=== PATIENT | female | born 1955 | race Caucasian/White ===

== ENCOUNTER → 2017-03-25 | Outpatient (CLI) | payer BC | LOC: CARD 09:35 | PROVIDERS: ATTEND Nurse Practitioner Family | DX: R06.09 Other forms of dyspnea (principal); R07.89 Other chest pain | CPT/HCPCS: 93306 ==

== ENCOUNTER → 2017-03-25 | Outpatient (CLI) | payer BC | LOC: CARD 09:41 → EDUNIT# 11:15 | PROVIDERS: ATTEND Nurse Practitioner Family | DX: R06.09 Other forms of dyspnea (principal) | CPT/HCPCS: 93225; 93226 ==

== ENCOUNTER → 2017-04-02 | Outpatient (CLI) | payer BC ==
[~2017-04-02] VITALS: Ht 172.7 cm; Wt 144.2 kg
[~2017-04-02] MED LIST: CATHETER FLUSH 10 ML SYR IV PRN; REGADENOSON 0.4 MG/5 ML SYR (LEXISCAN) IV ONE
[2017-04-02 09:40] VITALS: BP 106/50
== END ==
LOC: CARD 08:04 → EDUNIT# 09:45
PROVIDERS: ATTEND Nurse Practitioner Family
DX: R07.89 Other chest pain (principal); R06.09 Other forms of dyspnea
CPT/HCPCS: 78452; 93017

== ENCOUNTER 2018-02-09 05:51 | Outpatient (CLI) | payer BC ==
[~2018-02-09] VITALS: Ht 172.7 cm; Wt 137.9 kg
[2018-02-09] MEDS ORDERED: VNL37.5T PO (15:26)
[2018-02-09] MEDS ORDERED: GABA-488 PO (15:26)
[2018-02-09] MEDS ORDERED: CETI10TA17 PO (15:26)
[2018-02-09] MEDS ORDERED: LISI-552 PO (15:26)
[2018-02-09] MEDS ORDERED: PRAV40TA2 PO (15:26)
[2018-02-09] MEDS ORDERED: METO-387 PO (15:26)
[2018-02-09] MEDS ORDERED: INSU100V SQ (15:26)
[2018-02-09] MEDS ORDERED: INSU100I29 SQ (15:26)
== END 2018-02-09 15:28 | disposition home or self-care (01) ==
LOC: PREOP 05:51
PROVIDERS: ATTEND Surgery
DX: Z01.818 Encounter for other preprocedural examination (principal)

== ENCOUNTER 2018-02-16 07:49 | Day surgery (SDC) | payer BC ==
[~2018-02-16] VITALS: Ht 172.7 cm; Wt 137.9 kg
[~2018-02-16 07:49] MED LIST changes: -CATHETER FLUSH 10 ML SYR IV PRN; +CETI10TA17 PO; +GABA-488 PO; +INSU100I29 SQ; +INSU100V SQ; +LISI-552 PO; +METO-387 PO; +PRAV40TA2 PO; -REGADENOSON 0.4 MG/5 ML SYR (LEXISCAN) IV ONE; +VNL37.5T PO
[2018-02-16] MEDS ORDERED: LACTATED RINGERS 1,000 ML IV ONE (07:57)
--- NOTE | 2018-02-16 08:07 | Progress Note-Pre Operative ---
Pre-Operative Progress Note H&P Reviewed The H&P was reviewed, patient examined and no changes noted. Date Seen by Provider: Feb 16, 2018 Time Seen by Provider: 08:07 Date H&P Reviewed: Feb 16, 2018 Time H&P Reviewed: 08:07 Pre-Operative Diagnosis: blood in stool SHEREEN GOEL DO Feb 16, 2018 08:07
[2018-02-16] MEDS ORDERED: GLYCOPYRROLATE 0.2 MG/ML (ROBINUL) 2 ML VIAL IV ONE (08:30)
[2018-02-16] MEDS ORDERED: LACTATED RINGERS 1,000 ML IV STA (08:30)
[2018-02-16 08:34] VITALS: BP 167/92
[2018-02-16] MEDS ORDERED: MIDAZOLAM 2 MG/2 ML (VERSED) VIAL ONE (09:01)
[2018-02-16] MEDS ORDERED: PROPOFOL INJECTION 50 ML IV ONE (09:01)
--- NOTE | 2018-02-16 09:52 | Progress Note-Post Operative ---
Post-Operative Progess Note Surgeon (s)/Tour Conductor (s) Surgeon SHEREEN GOEL DO Tour Conductor: na Pre-Operative Diagnosis blood in stool Post-Operative Diagnosis cecal polyp, transverse colon lipoma, diverticulosis, internal hemorrhoids Procedure & Operative Findings Date of Procedure 02/16/18 Procedure Performed/Findings colonoscopy with hot bx polypectomy Anesthesia Type per [facility] Estimated Blood Loss Estimated blood loss (mL): none Specimens/Packing Specimens Removed cecal polyp SHEREEN GOEL DO Feb 16, 2018 09:52
--- NOTE | 2018-02-16 09:53 | Discharge Inst-Simple/Standard ---
Discharge Inst-Standard Patient Instructions/Follow Up Plan of Care/Instructions/FU: 2 weeks Jesse Activity as Tolerated: Yes Discharge Diet: Regular Diet (high fiber) SHEREEN GOEL DO Feb 16, 2018 09:53
[2018-02-16 10:00] VITALS: BP 130/65
[2018-02-16 10:25] VITALS: BP_SYST 127; BP_SYST 130; BP_DIAS 63; BP_DIAS 65
[2018-02-16 10:30] VITALS: BP 127/63
--- NOTE | 2018-02-16 10:56 | Anesthesia-General Post-Op ---
MAC Patient Condition Mental Status/LOC: Same as Preop Cardiovascular: Satisfactory Nausea/Vomiting: Absent Respiratory: Satisfactory Pain: Controlled Complications: Absent Post Op Complications Complications None Follow Up Care/Instructions Patient Instructions None needed. Anesthesiology Discharge Order Discharge Order Patient is doing well, no complaints, stable vital signs, no apparent adverse anesthesia problems. No complications reported per nursing. KADEN MENDOZA CRNA Feb 16, 2018 10:56
--- NOTE | 2018-02-16 14:50 | OPERATIVE REPORT ---
DATE OF SERVICE: 02/16/2018 PREOPERATIVE DIAGNOSIS: Blood in stools. POSTOPERATIVE DIAGNOSES: Cecal polyp, transverse colon lipoma, diverticulosis, internal hemorrhoids. PROCEDURE: Colonoscopy with hot biopsy polypectomy of the cecum polyp. SURGEON: Shereen Molina DO ANESTHESIA: Per MDA. ESTIMATED BLOOD LOSS: None. COMPLICATIONS: None. INDICATIONS: The patient is a 62-year-old female with blood in stools. She understands risks and benefits of procedure and wished to proceed with procedure. Consent was signed on the chart. DESCRIPTION OF PROCEDURE: The patient was taken to the endoscopy suite, placed in left lateral recumbent position. Timeout was performed. Digital rectal exam was performed noting internal hemorrhoids. No polyps, masses or ulcerations. The scope was inserted into the rectum and advanced all the way to the cecum with minimal difficulty. Prep was adequate. Scope was then slowly retracted back and in the a small polyp was present, which hot biopsy polypectomy was performed. Scope was continued to be slowly retracted back. There are no polyps, masses or ulceration in the ascending colon, transverse colon and a moderate size colonic lipoma present. Scope was continued to be slowly retracted back. There are no polyps, masses or ulcerations in the descending colon, minimal amount of diverticulosis present in the sigmoid colon. Once in the rectum, scope was also retroflexed noting no other pathology. There is some internal hemorrhoids noted which most likely the cause of bleeding and blood in stools. Scope was returned to its normal position, slowly withdrawn until completely removed. The patient tolerated the procedure well without any complications. She was taken to the recovery room in stable condition. RECOMMENDATIONS: The patient will follow up on pathology in approximately 2 weeks. We will consider HET treatment . If any change, the patient will need repeat colonoscopy in 5 years. If she has any problems prior to that, she should be reevaluated at that time. Job ID: [id number] DocumentID: [id number] Dictated Date: 02/16/2018 09:56:13 Monorail Hooker Date: 02/16/2018 14:50:26 Dictated By: SHEREEN MOLINA DO
== END 2018-02-16 10:30 | disposition home or self-care (01) ==
LOC: ENDO 07:49
PROVIDERS: ATTEND Surgery
DX: K92.1 Melena (principal); D12.0 Benign neoplasm of cecum; D17.5 Benign lipomatous neoplasm of intra-abdominal organs; K57.30 Diverticulosis of large intestine without perforation or abscess without bleeding; K64.8 Other hemorrhoids; E11.42 Type 2 diabetes mellitus with diabetic polyneuropathy; I10 Essential (primary) hypertension; G47.33 Obstructive sleep apnea (adult) (pediatric); E66.01 Morbid (severe) obesity due to excess calories; Z68.42 Body mass index [BMI] 45.0-49.9, adult; Z79.4 Long term (current) use of insulin; Z79.899 Other long term (current) drug therapy
CPT/HCPCS: 82962; 88305

== ENCOUNTER → 2018-07-19 | Outpatient (CLI) | payer BC, OTHER ==
--- NOTE | 2018-07-19 17:56 | Diagnostic Imaging Report ---
Indication: Routine screening. Comparison is made with prior exam from 08/10/2017 and 07/09/2016. Technique: 2-D and 3-D bilateral screening mammography was performed with CAD. Findings: Scattered fibroglandular densities are identified bilaterally. The parenchymal pattern appears stable. No mass or malignant-appearing microcalcifications are seen. The axillae are unremarkable. Impression: BI-RADS category 1. No mammographic features suspicious for malignancy are identified. ACR BI-RADS Category 1: Negative. Result letter will be mailed to the patient. Note: At least 10% of breast cancer is not imaged by mammography. Dictated by: Dictated on workstation # [id number]
== END ==
LOC: RAD 10:08
PROVIDERS: ATTEND Family Medicine
DX: Z12.31 Encounter for screening mammogram for malignant neoplasm of breast (principal)
CPT/HCPCS: 77067

== ENCOUNTER → 2018-11-02 | Outpatient (CLI) | payer BC ==
--- NOTE | 2018-11-02 14:08 | Diagnostic Imaging Report ---
EXAMINATION: Left hand radiographs, 3 views. COMPARISON: None. HISTORY: 63-year-old female, left hand pain after fall 5 weeks ago. Pain in the region of the fourth and fifth digits. FINDINGS: There is a comminuted displaced intra-articular fracture involving the base of the fifth metatarsal with sizable displaced fracture fragment measuring approximately 6 x 8 mm on image 1. There is offset of the articulating surface. The contour of the base of the fourth metacarpal appears unusual. There are limitations for evaluation of the fourth metacarpal base relating to bone overlap. Given the abnormal appearing morphology, fracture at this location is difficult to exclude. There is no identified subluxation or dislocation. There are vascular calcifications noted. IMPRESSION: 1. Comminuted displaced intra-articular fracture of the base of the fifth metacarpal with offset of the articulating surface. 2. Limitations for assessment of the base of the fourth metacarpal with questioned abnormal bone morphology and no clearly identified fracture. Further assessment of the base of the fourth metacarpal may be improved with dedicated CT left hand without contrast. Dictated by: Dictated on workstation # [id number]
== END ==
LOC: RAD FS 13:38
PROVIDERS: ATTEND Nurse Practitioner
DX: S62.317A Displaced fracture of base of fifth metacarpal bone, left hand, initial encounter for closed fracture (principal); W19.XXXA Unspecified fall, initial encounter
CPT/HCPCS: 73130

== ENCOUNTER → 2018-11-23 | Outpatient (CLI) | payer BC ==
--- NOTE | 2018-11-23 13:32 | Diagnostic Imaging Report ---
INDICATION: Followup fracture. TIME OF EXAM: 1:21 p.m. COMPARISON: Correlation is made with prior study of 11/02/2018. FINDINGS: Comminuted intra-articular fracture at the base of fifth metacarpal is again seen. Fracture lines remain clearly visible with 6 x 8 mm fracture fragment showing minimal displacement, similar to prior. No significant callus formation is identified. Alignment is stable. Carpal bones are unremarkable. Phalanges are unremarkable. IMPRESSION: No significant change in the intra-articular comminuted fracture at the base of the fifth metacarpal when compared with the prior examination from 11/02/2018. Dictated by: Dictated on workstation # [id number]
== END ==
LOC: RAD FS 13:08
PROVIDERS: ATTEND Nurse Practitioner
DX: S62.316D Displaced fracture of base of fifth metacarpal bone, right hand, subsequent encounter for fracture with routine healing (principal)
CPT/HCPCS: 73130

== ENCOUNTER → 2018-12-23 | Outpatient (CLI) | payer BC ==
--- NOTE | 2018-12-23 08:25 | Diagnostic Imaging Report ---
INDICATION: Left hand injury. FINDINGS: 3 views of left hand show comminuted fracture of the base of the fifth metatarsal with an avulsed fragment. This is unchanged compared to prior study done on 11/23/2018. There are no changes of acute abnormalities since the prior study. 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 Dictated by: Dictated on workstation # [id number]
== END ==
LOC: RAD FS 08:12
PROVIDERS: ATTEND Nurse Practitioner
DX: S62.31 Displaced fracture of base of other metacarpal bone (principal); S62.315A Displaced fracture of base of fourth metacarpal bone, left hand, initial encounter for closed fracture
CPT/HCPCS: 73130

== ENCOUNTER 2019-02-06 04:09 | Inpatient (IN) | payer BC ==
[2019-02-06] VITALS (18 sets, daily range): BP systolic 101–135; BP diastolic 35–97
[~2019-02-06] VITALS: Ht 172.7 cm; Wt 168.3 kg
[2019-02-06] MEDS ORDERED: NS IV 1000 ML 1,000 ML IV STA (04:27)
--- NOTE | 2019-02-06 05:05 | ED General ---
General Chief Complaint: Glucose Problems Stated Complaint: HIGH BLOOD SUGAR Nursing Triage Note: PT. WAS BROUGHT TO ER5 BY EMS WITH THE C/O ELEVATED BLOOD SUGAR AND UNRESPONSIVE. EMS STATED THE PT DID AROUSE PRIOR TO THE ADMIT TO ER BUT AT THIS POINT THE PT. IS NOT RESPONDING TO VERBAL COMMANDS. SHE IS MOANING. Nursing Sepsis Screen: No Definite Risk Source of Information: Patient, EMS, Family (Son), Spouse History of Present Illness Date Seen by Provider: Feb 06, 2019 Time Seen by Provider: 04:19 Initial Comments 63-year-old female presenting with complaints of altered mental status. According to family she has not been eating and drinking well since Thursday when she had started some pain medicine for her pinched nerve in her neck. She has not been taking her insulin as she is supposed to. She was less responsive tonight and when they tried to check her sugar at home that was only reading high on the monitor at home. Family called 911 because he couldn't get her to wake up for them. They had given her extra insulin prior to the ambulance arriving and does have an ambulance got there her sugar was found to 352. She was becoming more alert by the time EMS arrived. She has been running a fever and complaining that she thought she had a urinary tract infection. However because she was feeling so poorly she had not made it out to be evaluated in the clinic. Her primary doctor is Dr. Salcedo out of [place]. According to family she has not had to be admitted for DKA previously. Allergies and Home Medications Allergies Coded Allergies: Sulfa (Sulfonamide Antibiotics) (Unverified Allergy, Unknown, 04/02/17) cefaclor (Unverified Allergy, Unknown, 04/02/17) nitrofurantoin (Verified Allergy, Unknown, HIVES, 02/09/18) Home Medications Cetirizine HCl 10 Mg Tablet, 10 MG PO DAILY, (Reported) Gabapentin 300 Mg Capsule, 300 MG PO TID, (Reported) Insulin Detemir 100 Unit/1 Ml Insuln.pen, 70 UNIT SQ BID, (Reported) Insulin Lispro 100 Unit/1 Ml Vial, 35 UNIT SQ TIDWM, (Reported) Lisinopril 20 Mg Tablet, 10 MG PO DAILY, (Reported) take 1/2 of 20mg Metoprolol Succinate 25 Mg Tab.er.24h, 25 MG PO DAILY, (Reported) Pravastatin Sodium 40 Mg Tablet, 40 MG PO DAILY, (Reported) Venlafaxine HCl 37.5 Mg Tab, 37.5 MG PO BID WITH MEALS, (Reported) Patient Home Medication List Home Medication List Reviewed: Yes Review of Systems Review of Systems Constitutional: chills, fever, malaise EENTM: no symptoms reported Respiratory: short of breath Cardiovascular: no symptoms reported Gastrointestinal: loss of appetite Genitourinary: dysuria Musculoskeletal: neck pain (pinched nerve in neck) Skin: no symptoms reported Psychiatric/Neurological: Weakness, Other (fatigue and sleeping more recently) Hematologic/Lymphatic: Denies Easy Bleeding, Denies Easy Bruising Immunological/Allergic: no symptoms reported All Other Systems Reviewed Negative Unless Noted: Yes (Negative excepted noted.) Past Hbenqwm-Iiwwmp-Qfalzg Hx Past Med/Social Hx: Reviewed Nursing Past Med/Soc Hx Patient Social History Recent Foreign Travel: No Contact w/Someone Who Travel: No Recent Infectious Disease Expo: No Recent Hopitalizations: No Seasonal Allergies Seasonal Allergies: Yes Past Medical History Surgeries: Yes Gallbladder, Hysterectomy Respiratory: Yes Sleep Apnea Currently Using CPAP: Yes Cardiac: Yes Hypertension Neurological: Yes Neuropathy HUMAN RESOURCES CONSULTANT History: Hysterectomy Gastrointestinal: Yes Chronic Constipation, Hemorrhoids Musculoskeletal: Yes Arthritis Endocrine: Yes Diabetes, Insulin dep Depression Physical Exam Vital Signs Vital Signs - First Documented 02/06/19 02/06/19 04:15 06:29 Temp 100.8 Pulse 116 Resp 24 B/P (MAP) 125/80 (95) Pulse Ox 92 O2 Delivery Nasal Cannula O2 Flow Rate 4.00 Capillary Refill : Less Than 3 Seconds Height, Weight, BMI Height: 5'8.00" Weight: 350lbs. 0.0oz. 158.632797yg; 46.2 BMI Method:Estimated General Appearance: Obese Eyes: Bilateral Eye PERRL HEENT: No Moist Mucous Membranes (dry mucous membranes with remnants of red candy on her tongue and mouth) Neck: Supple Respiratory: Lungs Clear, Decreased Breath Sounds Cardiovascular: Normal Peripheral Pulses, Tachycardia Gastrointestinal: Normal Bowel Sounds, No Pulsatile Mass, Non Tender, Soft, Other (morbidly obese abdomen) Neurologic/Psychiatric: Alert; No Oriented x3 (states her first name and that she is in hospital. Otherwise not consistently answering questions) Skin: Cool, Pallor Focused Exam Sepsis Stage: Sepsis Possible Source: Other (Urinary and Pulmonary source) Lactate Level 02/06/19 04:40: Lactic Acid Level 3.89*H 02/06/19 06:15: Time of Focused Exam: 05:40 Respiratory: Chest Non Tender, No Accessory Muscle Use, No Respiratory Distress, Decreased Breath Sounds Cardiovascular: Tachycardia Peripheral Pulses: 2+ Carotid (R), 2+ Carotid (L), 2+ Radial Pulses (R), 2+ Radial Pulses (L) Skin: normal color, warm/dry Lactic Acid Level Laboratory Tests Test 02/06/19 04:40 02/06/19 06:15 Lactic Acid Level 3.89 MMOL/L (0.50-2.00) *H Within 3hrs of presentation: Admin fluids, Admin 30ml/kg IBW due to BMI>30, Admin ABX, Blood cultures prior to ABX's, Focus exam, Lactate level Progress/Results/Core Measures Suspected Sepsis Recent Fever Within 48 Hours: Yes Infection Criteria Present: None New/Unexplained Altered Menta: Yes Sepsis Screen: No Definite Risk Within 3hrs of presentation: Admin fluids, Admin 30ml/kg IBW due to BMI>30, Admin ABX, Blood cultures prior to ABX's, Focus exam, Lactate level SIRS Temperature:100.8 Pulse: 116 Respiratory Rate: 24 Laboratory Tests 02/06/19 04:20: White Blood Count 26.6H Blood Pressure 125 /80 Mean: 95 02/06/19 04:40: Lactic Acid Level 3.89*H 02/06/19 06:15: Laboratory Tests 02/06/19 04:20: Creatinine 1.38H, Platelet Count 199, Total Bilirubin 1.2H Results/Orders Lab Results Laboratory Tests Test 02/06/19 04:20 02/06/19 04:40 02/06/19 04:50 02/06/19 05:05 Range/Units White Blood Count 26.6 H 4.3-11.0 10^3/uL Red Blood Count 3.97 L 4.35-5.85 10^6/uL Hemoglobin 11.0 L 11.5-16.0 G/DL Hematocrit 34 L 35-52 % Mean Corpuscular Volume 85 80-99 FL Mean Corpuscular Hemoglobin 28 25-34 PG Mean Corpuscular Hemoglobin Concent 33 32-36 G/DL Red Cell Distribution Width 15.0 H 10.0-14.5 % Platelet Count 199 130-400 10^3/uL Mean Platelet Volume 11.7 H 7.4-10.4 FL Neutrophils (%) (Auto) 91 H 42-75 % Lymphocytes (%) (Auto) 5 L 12-44 % Monocytes (%) (Auto) 4 0-12 % Eosinophils (%) (Auto) 0 0-10 % Basophils (%) (Auto) 0 0-10 % Neutrophils # (Auto) 24.0 H 1.8-7.8 X 10^3 Lymphocytes # (Auto) 1.4 1.0-4.0 X 10^3 Monocytes # (Auto) 1.2 H 0.0-1.0 X 10^3 Eosinophils # (Auto) 0.0 0.0-0.3 10^3/uL Basophils # (Auto) 0.0 0.0-0.1 10^3/uL Neutrophils % (Manual) 55 % Lymphocytes % (Manual) 6 % Monocytes % (Manual) 3 % Eosinophils % (Manual) 1 % Basophils % (Manual) 0 % Band Neutrophils 35 % Hypochromasia 1+ Sodium Level 127 L 135-145 MMOL/L Potassium Level 4.6 3.6-5.0 MMOL/L Chloride Level 88 L 98-107 MMOL/L Carbon Dioxide Level 21 21-32 MMOL/L Anion Gap 18 H 5-14 MMOL/L Blood Urea Nitrogen 46 H 7-18 MG/DL Creatinine 1.38 H 0.60-1.30 MG/DL Estimat Glomerular Filtration Rate 39 BUN/Creatinine Ratio 33 Glucose Level 345 H 70-105 MG/DL Calcium Level 9.3 8.5-10.1 MG/DL Corrected Calcium 10.3 H 8.5-10.1 MG/DL Total Bilirubin 1.2 H 0.1-1.0 MG/DL Aspartate Amino Transf (AST/SGOT) 29 5-34 U/L Alanine Aminotransferase (ALT/SGPT) 21 0-55 U/L Alkaline Phosphatase 217 H 40-136 U/L Total Protein 8.3 H 6.4-8.2 GM/DL Albumin 2.8 L 3.2-4.5 GM/DL Salicylates Level < 0.3 L 5.0-20.0 MG/DL Acetaminophen Level < 10 L 10-30 UG/ML Serum Alcohol < 10 <10 MG/DL Lactic Acid Level 3.89 *H 0.50-2.00 MMOL/L Arterial Blood pH 7.39 7.37-7.43 Urine Color DARK YELLOW Urine Clarity CLOUDY Urine pH 5.0 5-9 Urine Specific [place] >=1.030 1.016-1.022 Urine Protein 1+ H NEGATIVE Urine Glucose (UA) 2+ H NEGATIVE Urine Ketones TRACE H NEGATIVE Urine Nitrite NEGATIVE NEGATIVE Urine Bilirubin 2+ H NEGATIVE Urine Urobilinogen 1.0 NORMAL MG/DL Urine Leukocyte Esterase 1+ H NEGATIVE Urine RBC (Auto) 1+ H NEGATIVE Urine RBC RARE /HPF Urine WBC 50-100 H /HPF Urine Squamous Epithelial Cells 2-5 /HPF Urine Crystals NONE /LPF Urine Bacteria 4+ /HPF Urine Casts PRESENT /LPF Urine Hyaline Casts 25-50 H /LPF Urine Mucus MODERATE H /LPF Urine Culture Indicated YES Urine Opiates Screen POSITIVE H NEGATIVE Urine Oxycodone Screen NEGATIVE NEGATIVE Urine Methadone Screen NEGATIVE NEGATIVE Urine Propoxyphene Screen NEGATIVE NEGATIVE Urine Barbiturates Screen NEGATIVE NEGATIVE Ur Tricyclic Antidepressants Screen POSITIVE H NEGATIVE Urine Phencyclidine Screen NEGATIVE NEGATIVE Urine Amphetamines Screen NEGATIVE NEGATIVE Urine Methamphetamines Screen NEGATIVE NEGATIVE Urine Benzodiazepines Screen NEGATIVE NEGATIVE Urine Cocaine Screen NEGATIVE NEGATIVE Urine Cannabinoids Screen NEGATIVE NEGATIVE Test 02/06/19 06:15 Range/Units My Orders Orders - RAGHU CANAS MD Ua Culture If Indicated (02/06/19 04:27) Cbc With Automated Diff (02/06/19 04:27) Comprehensive Metabolic Panel (02/06/19 04:27) Alcohol (02/06/19 04:27) Drug Screen Stat (Urine) (02/06/19 04:27) Acetaminophen (02/06/19 04:27) Salicylate (02/06/19 04:27) Ekg Tracing (02/06/19 04:27) Ed Iv/Invasive Line Start (02/06/19 04:27) Monitor-Rhythm Ecg Trace Only (02/06/19 04:27) Ed Iv/Invasive Line Start (02/06/19 04:27) Ns Iv 1000 Ml (Sodium Chloride 0.9%) (02/06/19 04:27) Blood Culture (02/06/19 04:31) Lactic Acid Analyzer (02/06/19 04:31) Hurt Cath (02/06/19 04:31) Manual Differential (02/06/19 04:20) Ns Iv 1000 Ml (Sodium Chloride 0.9%) (02/06/19 05:15) Levofloxacin 750 Mg/150 Ml Iv (Levaquin (02/06/19 05:15) Abg Ph (02/06/19 04:50) Chest 1 View Ap/Pa Only (02/06/19 05:43) Acetaminophen Suppository (Tylenol Suppo (02/06/19 06:00) Urine Culture (02/06/19 05:05) Medications Given in ED Current Medications Medications Dose Ordered Sig/Lydia Route Start Time Stop Time Status Last Admin Dose Admin Acetaminophen 650 mg ONCE ONCE OK 02/06/19 06:00 02/06/19 06:01 DC 02/06/19 05:56 650 MG Vital Signs/I&O 02/06/19 02/06/19 02/06/19 02/06/19 04:15 06:04 06:07 06:29 Temp 100.8 100.2 100.2 100.2 Pulse 116 116 116 118 Resp 24 27 27 24 B/P (MAP) 125/80 (95) 109/97 (101) 109/97 109/96 (100) Pulse Ox 92 O2 Delivery Nasal Cannula Nasal Cannula Nasal Cannula Nasal Cannula O2 Flow Rate 4.00 100.00 4.00 4.00 Capillary Refill : Less Than 3 Seconds Blood Pressure Mean: 95 Progress Note #1: Progress Note check labs and give IVF for hydration as she has possible infection and possible DKA. Check urine and place hurt since she has altered mental status and to monitor urine out put closely. Progress Note #2: Time: 04:40 Progress Note Pt with elevated WBC on her labs and remains tachycardic so will give additional IVF to get her to 30 mls/kg with IBW of 65 kg. Unable to obtain ABG so change to Venous gas to get a pH and see if she is acidotic or needs an insulin drip. Hurt to see what her urine output is and to get a clean specimen. Progress Note #3: Time: 05:03 Progress Note Focused exam improved after IVF bolus. She is more alert but still not back to baseline mental status. She has elevated temp still so give tylenol by rectal suppository and order levaquin for antibiotics. Will check a chest xray as well since she is requiring oxygen which is a new development for her. Her pH is normal so she is not acidotic but she does have an elevated anion gap and low sodium with elevated glucose. 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 Will admit to ICU and continue on abx and fluids based on IBW. After discussion with her the urine did come back showing infection and her CXR shows possible infiltrate so the Levaquin will cover both of these since she has allergies to cephalosporins and sulfa. Continue on IVF and admit to ICU in [place] with sepsis order set Progress Note #5: Time: 06:30 Progress Note Labs show she has elevated BUN and Cr as well to go with dehydration. Repeat Lactic acid is improved. Continue IVF but her BP is stable. Will transport her as soon as possible to ICU in [facility]. ECG Initial ECG Impression Date: Feb 06, 2019 Initial ECG Impression Time: 05:15 Initial ECG Rate: 115 Initial ECG Rhythm: S.Tach Initial ECG Intervals: Normal Initial ECG Comparisson: No Previous ECG Available Comment Sinus tachycardia with heart rate of [address] elevation. She has some T-wave flattening. There is no prior tracing for comparison. She has a lot of wander due to artifact. Diagnostic Imaging Diagonstic Imaging: Xray Plain Films/CT/US/NM/MRI: chest Comments On my review of her 1 view cxr she has bilateral infiltrate and cardiomegaly. large body habitus. Critical Care Note Critical Care Total Time (minutes) 90 minutes Progress 90 minutes spent in critical care time. The time was spent in direct care of the patient. This time was spent obtaining history from the patient's and patient's family. Time was excluding separately billable procedures. Time spent ordering labs and tests as well as reviewing results, ordering interventions and reviewing response, ordering x-rays and reviewing results, discussion with consultants, discussion with the family, documentation of the chart. Departure Communication (Admissions) Time/Spoke to Admitting Phy: 05:[address] Salcedo about admitting the pt for Sepsis and giving IVF based on her ideal body weight. Levaquin for abx choice for UTI and possible pneumonia Impression Primary Impression: Sepsis Qualified Codes: A41.9 - Sepsis, unspecified organism Additional Impressions: Pneumonia Qualified Codes: J18.9 - Pneumonia, unspecified organism Acute cystitis without hematuria Hyponatremia Hyperglycemia due to type 1 diabetes mellitus Disposition: ADMITTED INPATIENT Condition: Stable Admissions Decision to Admit Reason: Admit from ER (General) Decision to Admit/Date: Feb 06, 2019 Time/Decision to Admit Time: 05:37 Departure-Patient Inst. Referrals: [facility] (PCP) Primary Care Physician BAM SALCEDO MD (Family) Primary Care Physician RAGHU CANAS MD Feb 06, 2019 05:05
[2019-02-06 05:09] LABS: HEMATOCRIT 34 % (35-52); LYMPHOCYTES % (AUTO) 5 % (12-44); MEAN CORPUSCULAR HEMOGLOBIN 28 PG (25-34); MEAN CORPUSCULAR HGB CONC 33 G/DL (32-36); MEAN CORPUSCULAR VOLUME 85 FL (80-99); MEAN PLATELET VOLUME 11.7 FL (7.4-10.4); MONOCYTES % (AUTO) 4 % (0-12); NEUTROPHILS % (AUTO) 91 % (42-75); PLATELET COUNT 199 10^3/uL (130-400); WHITE BLOOD COUNT 26.6 10^3/uL (4.3-11.0)
[2019-02-06 05:10] LABS: BASOPHILS % (AUTO) 0 % (0-10); EOSINOPHILS % (AUTO) 0 % (0-10); LYMPHOCYTES # (AUTO) 1.4 X 10^3 (1.0-4.0); MONOCYTES # (AUTO) 1.2 X 10^3 (0.0-1.0)
[2019-02-06 05:11] LABS: ALANINE AMINOTRANSFERASE 21 U/L (0-55); ALBUMIN 2.8 GM/DL (3.2-4.5); ALKALINE PHOSPHATASE 217 U/L (40-136); BILIRUBIN,TOTAL 1.2 MG/DL (0.1-1.0); BUN/CREATININE RATIO 33; CALCIUM 9.3 MG/DL (8.5-10.1); CARBON DIOXIDE 21 MMOL/L (21-32); CHLORIDE 88 MMOL/L (98-107); CREATININE SERUM 1.38 MG/DL (0.60-1.30); GFR ESTIMATED 39; GLUCOSE 345 MG/DL (70-105); POTASSIUM 4.6 MMOL/L (3.6-5.0); SODIUM 127 MMOL/L (135-145); TOTAL PROTEIN 8.3 GM/DL (6.4-8.2)
[2019-02-06 05:12] LABS: ACETAMINOPHEN < 10 UG/ML (10-30); SALICYLATE < 0.3 MG/DL (5.0-20.0)
[2019-02-06] MEDS ORDERED: LEVOFLOXACIN 750 MG/150 ML IV 150 ML IV STA (05:15)
[2019-02-06] MEDS ORDERED: NS IV 1000 ML 1,000 ML IV SCH ×3 (05:15→16:41)
[2019-02-06 05:36] LABS: BAND NEUTROPHILS 35 %; BASOPHILS % (MANUAL) 0 %; EOSINOPHILS % (MANUAL) 1 %; HYPOCHROMASIA 1+; LYMPHOCYTES % (MANUAL) 6 %; MONOCYTES % (MANUAL) 3 %; NEUTROPHILS % (MANUAL) 55 %
[2019-02-06 05:45] LABS: AMPHETAMINE SCREEN, URINE NEGATIVE (NEGATIVE); BENZODIAZEPINES SCREEN URINE NEGATIVE (NEGATIVE); CANNABINOID SCREEN, URINE NEGATIVE (NEGATIVE); COCAINE SCREEN URINE NEGATIVE (NEGATIVE); METHAMPHETAMINE SCREEN URINE S NEGATIVE (NEGATIVE); OPIATE SCREEN URINE POSITIVE (NEGATIVE); TRICYCLIC ANTIDEPRESSANTS SCRE POSITIVE (NEGATIVE)
[2019-02-06 05:46] LABS: BARBITURATE SCREEN URINE NEGATIVE (NEGATIVE); METHADONE STAT NEGATIVE (NEGATIVE); OXYCODONE STAT NEGATIVE (NEGATIVE); PROPOXYPHENE STAT NEGATIVE (NEGATIVE)
[2019-02-06] MEDS ORDERED: ACETAMINOPHEN 650 MG SUPP (TYLENOL) PR ONE (06:00)
[2019-02-06 06:02] LABS: BILIRUBIN,URINE 2+ (NEGATIVE); CLARITY,URINE CLOUDY; COLOR,URINE DARK YELLOW; GLUCOSE, URINE (UA) 2+ (NEGATIVE); KETONES,URINE TRACE (NEGATIVE); LEUKOCYTE ESTERASE ,URINE 1+ (NEGATIVE); NITRITE,URINE NEGATIVE (NEGATIVE); PROTEIN,URINE 1+ (NEGATIVE); RBC,URINE RARE /HPF
[2019-02-06 06:03] LABS: BACTERIA,URINE 4+ /HPF; HYALINE CASTS, URINE 25-50 /LPF; WBC,URINE 50-100 /HPF
--- NOTE | 2019-02-06 07:36 | NUR ---
Patient transferred at this time to [facility] via [facility].
--- NOTE | 2019-02-06 07:40 | Diagnostic Imaging Report ---
Examination: Single frontal view of the chest Indication: Elevated blood sugar and unresponsive. Comparison: None available. Findings: There is central vascular congestion and diffuse interstitial prominence. No focal consolidation is seen. No pneumothorax is appreciated. No large pleural effusion. There is moderate cardiomegaly. No acute osseous abnormality is appreciated. Impression: Limited exam secondary to suboptimal technique. There is suggestion of interstitial edema. No significant pleural effusion. Given mild cardiomegaly, findings may reflect component of congestive heart failure. No focal consolidation is appreciated. Dictated by: Dictated on workstation # [id number]
[2019-02-06] MEDS: NOREPINEPHRINE 4 MG in NS (IVPB) 250 ML IV SCH ×4 (08:42→21:37)
[2019-02-06] MEDS ORDERED: NS IV ONE (08:45)
[2019-02-06] MEDS ORDERED: CATHETER FLUSH 10 ML SYR IV PRN (09:00)
[2019-02-06 09:08] LABS: BASOPHILS % (AUTO) 0 % (0-10); EOSINOPHILS % (AUTO) 0 % (0-10); HEMATOCRIT 29 % (35-52); HEMOGLOBIN 9.7 G/DL (11.5-16.0); LYMPHOCYTES # (AUTO) 0.7 X 10^3 (1.0-4.0); LYMPHOCYTES % (AUTO) 3 % (12-44); MEAN CORPUSCULAR HEMOGLOBIN 28 PG (25-34); MEAN CORPUSCULAR HGB CONC 34 G/DL (32-36); MEAN CORPUSCULAR VOLUME 83 FL (80-99); MEAN PLATELET VOLUME 11.4 FL (7.4-10.4); MONOCYTES # (AUTO) 1.1 X 10^3 (0.0-1.0); MONOCYTES % (AUTO) 4 % (0-12); NEUTROPHILS # (AUTO) 23.8 X 10^3 (1.8-7.8); NEUTROPHILS % (AUTO) 93 % (42-75); PLATELET COUNT 176 10^3/uL (130-400); RED CELL DISTRIBUTION WIDTH 15.1 % (10.0-14.5); WHITE BLOOD COUNT 25.6 10^3/uL (4.3-11.0)
[2019-02-06 09:34] LABS: ALBUMIN 2.6 GM/DL (3.2-4.5); BILIRUBIN,TOTAL 1.2 MG/DL (0.1-1.0); CALCIUM 8.6 MG/DL (8.5-10.1); CREATININE SERUM 1.33 MG/DL (0.60-1.30); POTASSIUM 4.5 MMOL/L (3.6-5.0)
[2019-02-06] MEDS ORDERED: VANCOMYCIN INJECTION 0.1 MG in NS (IVPB) 250 ML IV SCH (10:30)
[2019-02-06] MEDS: NS IV 1000 ML 1,000 ML IV SCH ×2 (10:33→12:55)
[2019-02-06] MEDS ORDERED: VANCOMYCIN 2000 MG/NS 500 ML IVPB IV NR ×2 (11:15)
--- NOTE | 2019-02-06 11:24 | NUR ---
CR 1.33; WT 154 KG; CR CL (WITH ADJ WT OF 100 KG) ~70; VANCO 2000 MG IV Q12H; TROUGH AFTER 2ND DOSE
[2019-02-06] MEDS: cefTRIAXone FOR IV USE 1,000 MG in WATER (STERILE) FOR INJECTION 10 ML IV SCH (12:55)
[2019-02-06] MEDS ORDERED: CYCL10TA9 PO (13:09)
[2019-02-06] MEDS ORDERED: HYDR-3812 PO (13:09)
[2019-02-06] MEDS ORDERED: FURO40TA4 PO (13:09)
[2019-02-06] MEDS ORDERED: METF500T8 PO (13:09)
[2019-02-06] MEDS ORDERED: DICL1TAB49 PO (13:09)
[2019-02-06] MEDS ORDERED: fentaNYL INJECTION 100 MCG/2 ML AMP ONE (13:40)
[2019-02-06 13:45] LABS: ABG BASE EXCESS -3.3 MMOL/L (-2.5-2.5); ABG OXYGEN SATURATION 98 % (94-100); ABG PCO2 31 MMHG (35-45); ABG PH 7.43 (7.37-7.43); ABG PO2 108 MMHG (79-93); ABG TCO2 20.9 MMOL/L (21.0-31.0)
[2019-02-06] MEDS ORDERED: fentaNYL INJECTION 100 MCG/2 ML AMP IVP ONE (13:45)
[2019-02-06 13:49] LABS: ALLENS TEST YES-POS; INSPIRED O2 30% BIPAP; PATIENT TEMP 101.2; VENTILATOR NO
[2019-02-06] MEDS ORDERED: LORazepam INJ 2 MG/ML (ATIVAN) VIAL ONE (14:13)
[2019-02-06] MEDS ORDERED: NS (IVPB) 50 ML ONE (14:14)
[2019-02-06] MEDS ORDERED: FUROSEMIDE 40 MG/4 ML INJ (LASIX) ONE (14:18)
--- NOTE | 2019-02-06 14:28 | Consultation-Cardiology ---
HPI-Cardiology Cardiology Consultation: Date of Consultation 02/06/19 Time Seen by a Provider: 15:10 Date of Admission 02/06/19 Attending Physician Soraida Serra MD Admitting Physician [place] Consulting Physician ZULEMA CHAVARRIA MD, MA, FACP, FACC, [facility] [place], CCDS Physician requesting consult: Dr Serra HPI: Chief Complaint: Reason for consultation: Shortness of breath HPI 63 yo woman admitted to Dr Serra this am for mental status changes and unresponsiveness. Diagnosed with sepsis and admitted. Has been treated with iv fluids and antibiotics. Has had worsening shortness of breath. Currently, sedated on BiPAP, not able to provide a detailed history or review of systems. Does not report cp or palp. Has chronic leg swelling Review of Systems-Cardiology Review of Systems Constitutional: other (A review of systems could not be obtained because pt sedated and on BiPAP) All Other Systems Reviewed Negative Unless Noted: Yes (Negative excepted noted.) [id number]-[id number] Hx Patient Social History Recent Foreign Travel: No Recent Infectious Disease Expo: No Hospitalization with Isolation: Denies Past Medical History PMH As described under Assessment. Family Medical History Family Medical History: Pt not able to provide family history at the time of this exam Allergies and Home Medications Allergies Coded Allergies: Sulfa (Sulfonamide Antibiotics) (Unverified Allergy, Unknown, 04/02/17) cefaclor (Unverified Allergy, Unknown, 04/02/17) nitrofurantoin (Verified Allergy, Unknown, HIVES, 02/09/18) Home Medications Cetirizine HCl 10 Mg Tablet, 10 MG PO DAILY, (Reported) Cyclobenzaprine HCl 10 Mg Tablet, 10 MG PO Q8H PRN for MUSCLE SPASMS, (Reported) Diclofenac Sodium/Misoprostol 1 Each Tab.ir.dr, 75 MG PO BID, (Reported) Furosemide 40 Mg Tablet, 40 MG PO DAILY, (Reported) Gabapentin 300 Mg Capsule, 300 MG PO TID, (Reported) Hydrocodone/Acetaminophen 1 Each Tablet, 5-325 MG PO Q4H, (Reported) Insulin Detemir 100 Unit/1 Ml Insuln.pen, 70 UNIT SQ BID, (Reported) Insulin Lispro 100 Unit/1 Ml Vial, 35 UNIT SQ TIDWM, (Reported) Lisinopril 20 Mg Tablet, 10 MG PO DAILY, (Reported) take 1/2 of 20mg Metformin HCl 500 Mg Tab.er.24h, 500 MG PO BID, (Reported) Pravastatin Sodium 40 Mg Tablet, 40 MG PO DAILY, (Reported) Venlafaxine HCl 37.5 Mg Tab, 37.5 MG PO BID WITH MEALS, (Reported) Patient Home Medication List Home Medication List Reviewed: Yes Physical Exam-Cardiology Physical Exam Vital Signs/I&O 02/06/19 02/06/19 02/06/19 02/06/19 04:15 06:04 06:07 06:29 Temp 100.8 100.2 100.2 100.2 Pulse 116 116 116 118 Resp 24 27 27 24 B/P (MAP) 125/80 (95) 109/97 (101) 109/97 109/96 (100) Pulse Ox 92 O2 Delivery Nasal Cannula Nasal Cannula Nasal Cannula Nasal Cannula O2 Flow Rate 4.00 100.00 4.00 4.00 02/06/19 02/06/19 02/06/19 02/06/19 08:15 08:36 08:52 09:00 Pulse 121 115 112 Resp 23 39 B/P (MAP) 118/57 (77) 101/51 (68) Pulse Ox 97 O2 Delivery Nasal Cannula Nasal Cannula O2 Flow Rate 4.00 4.00 4.00 02/06/19 02/06/19 02/06/19 02/06/19 10:00 12:00 12:43 13:02 Pulse 112 109 109 112 Resp 22 31 28 B/P (MAP) 102/61 (75) 114/35 (61) 135/66 (89) Pulse Ox 97 96 O2 Delivery Nasal Cannula Nasal Cannula Nasal Cannula O2 Flow Rate 4.00 4.00 4.00 02/06/19 02/06/19 02/06/19 02/06/19 13:41 14:00 15:00 15:05 Pulse 109 107 109 109 Resp 45 16 25 45 B/P (MAP) 105/54 (71) 119/62 (81) Pulse Ox 99 96 100 99 O2 Delivery Nasal Cannula Nasal Cannula O2 Flow Rate 30.00 4.00 4.00 30.00 Capillary Refill : Less Than 3 Seconds Constitutional: well-developed, well-nourished, other (sedated, on BiPAP mask, obese) HEENT: PERRL; No xanthelasmas are seen Neck: carotid pulses are 2 + bilaterally, with good upstrokes Respiratory: No accessory muscle use; other (fair bilat air entry, diminished at the bases) Cardiovascular: regular rate-rhythm, S1 and S2, systolic murmur (soft YULIA at card base) Gastrointestinal: No tender; soft; No guarding, No rebound; audible bowel sounds Extremities: No clubbing, No cyanosis, No significant edema Neurologic/Psychiatric: other (she seems to move all limbs; she is not able to cooperate with a neuro exam (sedated)) Skin: normal color, warm/dry; No rash on exposed areas, No ulcerations on exposed areas Data Review Labs Laboratory Tests 02/06/19 04:20: White Blood Count 26.6H, Red Blood Count 3.97L, Hemoglobin 11.0L, Hematocrit 34L , Mean Corpuscular Volume 85, Mean Corpuscular Hemoglobin 28, Mean Corpuscular Hemoglobin Concent 33, Red Cell Distribution Width 15.0H, Platelet Count 199, Mean Platelet Volume 11.7H, Neutrophils (%) (Auto) 91H, Lymphocytes (%) (Auto) 5L, Monocytes (%) (Auto) 4, Eosinophils (%) (Auto) 0, Basophils (%) (Auto) 0, Neutrophils # (Auto) 24.0H, Lymphocytes # (Auto) 1.4, Monocytes # (Auto) 1.2H, Eosinophils # (Auto) 0.0, Basophils # (Auto) 0.0, Neutrophils % (Manual) 55, Lymphocytes % (Manual) 6, Monocytes % (Manual) 3, Eosinophils % (Manual) 1, Baso phils % (Manual) 0, Band Neutrophils 35, Hypochromasia 1+, Sodium Level 127L, P otassium Level 4.6, Chloride Level 88L, Carbon Dioxide Level 21, Anion Gap 18H, Blood Urea Nitrogen 46H, Creatinine 1.38H, Estimat Glomerular Filtration Rate 39, BUN/Creatinine Ratio 33, Glucose Level 345H, Calcium Level 9.3, Corrected Calcium 10.3H, Total Bilirubin 1.2H, Aspartate Amino Transf (AST/SGOT) 29, Alanine Aminotransferase (ALT/SGPT) 21, Alkaline Phosphatase 217H, Total Protein 8.3H, Albumin 2.8L, Salicylates Level < 0.3L, Acetaminophen Level < 10L, Serum Alcohol < 10 02/06/19 04:40: Lactic Acid Level 3.89*H 02/06/19 04:50: Arterial Blood pH 7.39 02/06/19 05:05: Urine Color DARK YELLOW, Urine Clarity CLOUDY, Urine pH 5.0, Urine Specific [place] >=1.030, Urine Protein 1+H, Urine Glucose (UA) 2+H, Urine Ketones TRACEH , Urine Nitrite NEGATIVE, Urine Bilirubin 2+H, Urine Urobilinogen 1.0, Urine Nannette kocyte Esterase 1+H, Urine RBC (Auto) 1+H, Urine RBC RARE, Urine WBC 50-100H, Urine Squamous Epithelial Cells 2-5, Urine Crystals NONE, Urine Bacteria 4+, Urine Casts PRESENT, Urine Hyaline Casts 25-50H, Urine Mucus MODERATEH, Urine Culture Indicated YES, Urine Opiates Screen POSITIVEH, Urine Oxycodone Screen NEGATIVE, Urine Methadone Screen NEGATIVE, Urine Propoxyphene Screen NEGATIVE, Urine Barbiturates Screen NEGATIVE, Ur Tricyclic Antidepressants Screen POSITIVEH, Urine Phencyclidine Screen NEGATIVE, Urine Amphetamines Screen NEGATIVE, Urine Methamphetamines Screen NEGATIVE, Urine Benzodiazepines Screen NEGATIVE, Urine Cocaine Screen NEGATIVE, Urine Cannabinoids Screen NEGATIVE 02/06/19 06:15: Lactic Acid Level 2.64*H 02/06/19 08:54: Lactic Acid Level 2.56*H, White Blood Count 25.6H, Red Blood Count 3.48L, Hemoglobin 9.7L, Hematocrit 29L, Mean Corpuscular Volume 83, Mean Corpuscular Hemoglobin 28, Mean Corpuscular Hemoglobin Concent 34, Red Cell Distribution Width 15.1H, Platelet Count 176, Mean Platelet Volume 11.4H, Neutrophils (%) (Auto) 93H, Lymphocytes (%) (Auto) 3L, Monocytes (%) (Auto) 4, Eosinophils (%) (Auto) 0, Basophils (%) (Auto) 0, Neutrophils # (Auto) 23.8H, Lymphocytes # (Auto) 0.7L, Monocytes # (Auto) 1.1H, Eosinophils # (Auto) 0.0, Basophils # (Auto) 0.0, Sodium Level 127L, Potassium Level 4.5, Chloride Level 98, Carbon Dioxide Level 17L, Anion Gap 12, Blood Urea Nitrogen 43H, Creatinine 1.33H, Estimat Glomerular Filtration Rate 41, BUN/Creatinine Ratio 32, Glucose Level 315H, Calcium Level 8.6, Corrected Calcium 9.7, Total Bilirubin 1.2H, Aspartate Amino Transf (AST/SGOT) 37H, Alanine Aminotransferase (ALT/SGPT) 21, Alkaline Phosphatase 182H, B-Type Natriuretic Peptide 419.8H, Total Protein 7.0, Albumin 2.6L 02/06/19 11:13: Lactic Acid Level 2.13*H 02/06/19 13:22: Glucometer 284H 02/06/19 13:40: Blood Gas Puncture Site RT BRACH, Blood Gas Patient Temperature 101.2, Arterial Blood pH 7.43, Arterial Blood Partial Pressure CO2 31L, Arterial Blood Partial Pressure O2 108H, Arterial Blood HCO3 20L, Arterial Blood Total CO2 20.9L, Arterial Blood Oxygen Saturation 98, Arterial Blood Base Excess -3.3L, Apolinar Test YES-POS, Blood Gas Ventilator Setting NO, Blood Gas Inspired Oxygen 30% BIPAP 02/06/19 14:10: B-Type Natriuretic Peptide 339.1H Laboratory Tests 02/06/19 04:20 02/06/19 08:54 A/P-Cardiology Assessment/Admission Diagnosis Sepsis UTI Renal insufficiency, probably acute Hyponatremia: probably partly pseudohyponatremia due to hyperglycemia, and partly due to chronic diuretic use H/o leg swelling, likely due to venous insufficiency, chronically treated with diuretics MPI of March 2017: no ischemia or infarction, LVEF 78% Echo of March 2018: LVEF 65-70%, mild to mod MAC and AoV sclerosis without valvular stenosis, mild MR Hypertension, by history Hyperlipidemia, by history Obesity with obesity-hypoventilation and HAWA DM II Discussion and Recomendations * Complex management due to multiple comorbidities * We gave a dose of furosemide because she seemed fluid overloaded * Use diuretics prn * Repeat echo * Monitor labs * I spoke with her and answered CV-related questions Clinical Quality Measures DVT/VTE Risk/Contraindication: Risk Factor Score Per Nursin RFS Level Per Nursing on Admit: 4+=Very High ZULEMA CHAVARRIA MD FACP FAC CCDS Feb 06, 2019 14:28
[2019-02-06] MEDS ORDERED: LORazepam INJ 2 MG/ML (ATIVAN) VIAL IV NR (14:30)
[2019-02-06] MEDS ORDERED: FUROSEMIDE 40 MG/4 ML INJ (LASIX) IV NR (14:30)
--- NOTE | 2019-02-06 14:47 | CONSULTATION REPORT ---
DATE OF SERVICE: 02/06/2019 ATTENDING CAREER SERVICES REPRESENTATIVE: [facility]. HISTORY OF PRESENT ILLNESS: The patient is a 63-year-old female who presented to [place] [facility] with altered mental status. According to family member, she has not been eating or drinking well since 4 days ago after taking pain medication for neuralgia of her neck. She is also now on insulin for diabetes and has not been taking her normal insulin regimen. Upon admission, she was found to have a significant urinary tract infection as well as possible pneumonia; however, at this time, she is now tachycardic with increased respiratory rate as well as low blood pressure consistent with sepsis. She will require a central venous catheter for vasopressor therapy. PAST MEDICAL HISTORY: Diabetes, hypertension, degenerative joint disease, diabetes, and depression. PAST SURGICAL HISTORY: Hysterectomy, cholecystectomy. ALLERGIES: SULFA, CECLOR, AND NITROFURANTOIN. MEDICATIONS: Cetirizine 10 mg daily, gabapentin 300 mg t.i.d., detemir insulin 70 units b.i.d., lispro insulin 35 units t.i.d., lisinopril 20 mg daily, metoprolol 25 mg daily, pravastatin 40 mg daily, and venlafaxine 37.5 mg b.i.d. SOCIAL HISTORY: Negative smoke, negative alcohol. FAMILY HISTORY: Noncontributory. REVIEW OF SYSTEMS: A well-nourished female, awake; however, confused. At this time, she is tachypneic as well as tachycardic. No known chest pain, palpitations, or diaphoresis. No loss of appetite for the past several days, no nausea, vomiting. No known history of diarrhea, constipation, no red blood per rectum, no dark tarry stools. No recent inadvertent weight loss. PHYSICAL EXAMINATION: VITAL SIGNS: Temperature 100.2, pulse 120s, respirations 50, pulse ox 96% on 4 liters nasal cannula, and systolic blood pressure 100 to 130s. CHEST: Scattered rales bilaterally. HEART: Tachycardic, regular. HEENT: No scleral icterus. No cervical lymphadenopathy. EXTREMITIES: +1/3 bilateral lower extremity edema. Negative Homans sign. ABDOMEN: Soft, nontender, and nondistended. SKIN: Warm, dry. ASSESSMENT AND PLAN: A 63-year-old female, sepsis secondary to urinary tract infection versus pneumonia. We will proceed with placement of a central venous catheter. Job ID: [id number] DocumentID: [id number] Dictated Date: 02/06/2019 14:21:11 Dehydration Unit Operator Date: 02/06/2019 14:46:53 Dictated By: CYNDIE YE MD
--- NOTE | 2019-02-06 15:02 | History & Physicial (CHS) ---
HPI History of Present Illness: 63 yo F that presented to ER after telling family that she did not feel right and they insisted that she go to the ER. Patient unable to answer very many questions and appears ill. Family states that she stopped taking her insulin Thursday because she was not feeling well and had no appetite. Today she was having some increased shortness of breath per family. Patient has a h/o IDDM, HTN, HLD. She does not use oxygen at home. In the ER she was found to have a lactic acidosis, ARF and initially glucose was read as high. Source: family Exam Limitations: clinical condition Date seen by provider: Feb 06, 2019 Time Seen by Provider: 11:55 Attending Physician Bam Serra MD [facility] [place] [facility] Consult Date of Admission Feb 06, 2019 at 06:27 Home Medications Home Medications Reviewed patient Home Medication Reconciliation performed by pharmacy medication reconciliations mobile home technician and/or nursing. Patients Allergies have been reviewed. Allergies Coded Allergies: Sulfa (Sulfonamide Antibiotics) (Unverified Allergy, Unknown, 04/02/17) cefaclor (Unverified Allergy, Unknown, 04/02/17) nitrofurantoin (Verified Allergy, Unknown, HIVES, 02/09/18) LBM-[id number]-Yqoolh Hx Patient Social History Recent Foreign Travel: No Contact w/other who traveled: No Recent Hopitalizations: No Recent Infectious Disease Expo: No Past Medical History Morbid Obesity IDDM HTN HLD Review of Systems (CHC) Constitutional: chills, malaise, weakness EENTM: no symptoms reported; No mouth pain, No nose congestion, No throat pain Respiratory: cough, dyspnea on exertion, short of breath Cardiovascular: no symptoms reported; No chest pain, No edema, No palpitations Gastrointestinal: No abdominal pain, No constipation; loss of appetite; No nausea, No vomiting Genitourinary: No dysuria; frequency Musculoskeletal: neck pain Skin: no symptoms reported; No lesions, No rash Psychiatric/Neurological: Headache Reviewed Test Results Reviewed Test Results Lab Laboratory Tests Test 02/06/19 04:20 02/06/19 04:40 02/06/19 04:50 02/06/19 05:05 Range/Units White Blood Count 26.6 H 4.3-11.0 10^3/uL Red Blood Count 3.97 L 4.35-5.85 10^6/uL Hemoglobin 11.0 L 11.5-16.0 G/DL Hematocrit 34 L 35-52 % Mean Corpuscular Volume 85 80-99 FL Mean Corpuscular Hemoglobin 28 25-34 PG Mean Corpuscular Hemoglobin Concent 33 32-36 G/DL Red Cell Distribution Width 15.0 H 10.0-14.5 % Platelet Count 199 130-400 10^3/uL Mean Platelet Volume 11.7 H 7.4-10.4 FL Neutrophils (%) (Auto) 91 H 42-75 % Lymphocytes (%) (Auto) 5 L 12-44 % Monocytes (%) (Auto) 4 0-12 % Eosinophils (%) (Auto) 0 0-10 % Basophils (%) (Auto) 0 0-10 % Neutrophils # (Auto) 24.0 H 1.8-7.8 X 10^3 Lymphocytes # (Auto) 1.4 1.0-4.0 X 10^3 Monocytes # (Auto) 1.2 H 0.0-1.0 X 10^3 Eosinophils # (Auto) 0.0 0.0-0.3 10^3/uL Basophils # (Auto) 0.0 0.0-0.1 10^3/uL Neutrophils % (Manual) 55 % Lymphocytes % (Manual) 6 % Monocytes % (Manual) 3 % Eosinophils % (Manual) 1 % Basophils % (Manual) 0 % Band Neutrophils 35 % Hypochromasia 1+ Sodium Level 127 L 135-145 MMOL/L Potassium Level 4.6 3.6-5.0 MMOL/L Chloride Level 88 L 98-107 MMOL/L Carbon Dioxide Level 21 21-32 MMOL/L Anion Gap 18 H 5-14 MMOL/L Blood Urea Nitrogen 46 H 7-18 MG/DL Creatinine 1.38 H 0.60-1.30 MG/DL Estimat Glomerular Filtration Rate 39 BUN/Creatinine Ratio 33 Glucose Level 345 H 70-105 MG/DL Calcium Level 9.3 8.5-10.1 MG/DL Corrected Calcium 10.3 H 8.5-10.1 MG/DL Total Bilirubin 1.2 H 0.1-1.0 MG/DL Aspartate Amino Transf (AST/SGOT) 29 5-34 U/L Alanine Aminotransferase (ALT/SGPT) 21 0-55 U/L Alkaline Phosphatase 217 H 40-136 U/L Total Protein 8.3 H 6.4-8.2 GM/DL Albumin 2.8 L 3.2-4.5 GM/DL Salicylates Level < 0.3 L 5.0-20.0 MG/DL Acetaminophen Level < 10 L 10-30 UG/ML Serum Alcohol < 10 <10 MG/DL Lactic Acid Level 3.89 *H 0.50-2.00 MMOL/L Arterial Blood pH 7.39 7.37-7.43 Urine Color DARK YELLOW Urine Clarity CLOUDY Urine pH 5.0 5-9 Urine Specific [place] >=1.030 1.016-1.022 Urine Protein 1+ H NEGATIVE Urine Glucose (UA) 2+ H NEGATIVE Urine Ketones TRACE H NEGATIVE Urine Nitrite NEGATIVE NEGATIVE Urine Bilirubin 2+ H NEGATIVE Urine Urobilinogen 1.0 NORMAL MG/DL Urine Leukocyte Esterase 1+ H NEGATIVE Urine RBC (Auto) 1+ H NEGATIVE Urine RBC RARE /HPF Urine WBC 50-100 H /HPF Urine Squamous Epithelial Cells 2-5 /HPF Urine Crystals NONE /LPF Urine Bacteria 4+ /HPF Urine Casts PRESENT /LPF Urine Hyaline Casts 25-50 H /LPF Urine Mucus MODERATE H /LPF Urine Culture Indicated YES Urine Opiates Screen POSITIVE H NEGATIVE Urine Oxycodone Screen NEGATIVE NEGATIVE Urine Methadone Screen NEGATIVE NEGATIVE Urine Propoxyphene Screen NEGATIVE NEGATIVE Urine Barbiturates Screen NEGATIVE NEGATIVE Ur Tricyclic Antidepressants Screen POSITIVE H NEGATIVE Urine Phencyclidine Screen NEGATIVE NEGATIVE Urine Amphetamines Screen NEGATIVE NEGATIVE Urine Methamphetamines Screen NEGATIVE NEGATIVE Urine Benzodiazepines Screen NEGATIVE NEGATIVE Urine Cocaine Screen NEGATIVE NEGATIVE Urine Cannabinoids Screen NEGATIVE NEGATIVE Test 02/06/19 06:15 02/06/19 08:54 02/06/19 11:13 02/06/19 13:22 Range/Units Lactic Acid Level 2.64 *H 2.56 *H 2.13 *H 0.50-2.00 MMOL/L White Blood Count 25.6 H 4.3-11.0 10^3/uL Red Blood Count 3.48 L 4.35-5.85 10^6/uL Hemoglobin 9.7 L 11.5-16.0 G/DL Hematocrit 29 L 35-52 % Mean Corpuscular Volume 83 80-99 FL Mean Corpuscular Hemoglobin 28 25-34 PG Mean Corpuscular Hemoglobin Concent 34 32-36 G/DL Red Cell Distribution Width 15.1 H 10.0-14.5 % Platelet Count 176 130-400 10^3/uL Mean Platelet Volume 11.4 H 7.4-10.4 FL Neutrophils (%) (Auto) 93 H 42-75 % Lymphocytes (%) (Auto) 3 L 12-44 % Monocytes (%) (Auto) 4 0-12 % Eosinophils (%) (Auto) 0 0-10 % Basophils (%) (Auto) 0 0-10 % Neutrophils # (Auto) 23.8 H 1.8-7.8 X 10^3 Lymphocytes # (Auto) 0.7 L 1.0-4.0 X 10^3 Monocytes # (Auto) 1.1 H 0.0-1.0 X 10^3 Eosinophils # (Auto) 0.0 0.0-0.3 10^3/uL Basophils # (Auto) 0.0 0.0-0.1 10^3/uL Sodium Level 127 L 135-145 MMOL/L Potassium Level 4.5 3.6-5.0 MMOL/L Chloride Level 98 98-107 MMOL/L Carbon Dioxide Level 17 L 21-32 MMOL/L Anion Gap 12 5-14 MMOL/L Blood Urea Nitrogen 43 H 7-18 MG/DL Creatinine 1.33 H 0.60-1.30 MG/DL Estimat Glomerular Filtration Rate 41 BUN/Creatinine Ratio 32 Glucose Level 315 H 70-105 MG/DL Calcium Level 8.6 8.5-10.1 MG/DL Corrected Calcium 9.7 8.5-10.1 MG/DL Total Bilirubin 1.2 H 0.1-1.0 MG/DL Aspartate Amino Transf (AST/SGOT) 37 H 5-34 U/L Alanine Aminotransferase (ALT/SGPT) 21 0-55 U/L Alkaline Phosphatase 182 H 40-136 U/L B-Type Natriuretic Peptide 419.8 H <100.0 PG/ML Total Protein 7.0 6.4-8.2 GM/DL Albumin 2.6 L 3.2-4.5 GM/DL Glucometer 284 H 70-110 MG/DL Test 02/06/19 13:40 02/06/19 14:10 Range/Units Blood Gas Puncture Site RT BRACH Blood Gas Patient Temperature 101.2 Arterial Blood pH 7.43 7.37-7.43 Arterial Blood Partial Pressure CO2 31 L 35-45 MMHG Arterial Blood Partial Pressure O2 108 H 79-93 MMHG Arterial Blood HCO3 20 L 23-27 MMOL/L Arterial Blood Total CO2 20.9 L 21.0-31.0 MMOL/L Arterial Blood Oxygen Saturation 98 94-100 % Arterial Blood Base Excess -3.3 L -2.5-2.5 MMOL/L Apolinar Test YES-POS Blood Gas Ventilator Setting NO Blood Gas Inspired Oxygen 30% BIPAP B-Type Natriuretic Peptide 339.1 H <100.0 PG/ML Physical Exam-(CHC) Physical Exam Vital Signs VS - Last 72 Hours, by Label 02/06/19 02/06/19 02/06/19 02/06/19 04:15 06:04 06:07 06:29 Temp 100.8 100.2 100.2 100.2 Pulse 116 116 116 118 Resp 24 27 27 24 B/P (MAP) 125/80 (95) 109/97 (101) 109/97 109/96 (100) Pulse Ox 92 O2 Delivery Nasal Cannula Nasal Cannula Nasal Cannula Nasal Cannula O2 Flow Rate 4.00 100.00 4.00 4.00 02/06/19 02/06/19 02/06/19 02/06/19 08:15 08:36 08:52 09:00 Pulse 121 115 112 Resp 23 39 B/P (MAP) 118/57 (77) 101/51 (68) Pulse Ox 97 O2 Delivery Nasal Cannula Nasal Cannula O2 Flow Rate 4.00 4.00 4.00 02/06/19 02/06/19 02/06/19 02/06/19 10:00 12:00 12:43 13:02 Pulse 112 109 109 112 Resp 22 31 28 B/P (MAP) 102/61 (75) 114/35 (61) 135/66 (89) Pulse Ox 97 96 O2 Delivery Nasal Cannula Nasal Cannula Nasal Cannula O2 Flow Rate 4.00 4.00 4.00 02/06/19 14:00 Pulse 107 Resp 16 B/P (MAP) 105/54 (71) Pulse Ox 96 O2 Delivery Nasal Cannula O2 Flow Rate 4.00 Capillary Refill : Less Than 3 Seconds General Appearance: moderate distress, obese HEENT: PERRL/EOMI Neck: limited range of motion (due to pain) Respiratory: lungs clear, normal breath sounds, respiratory distress Cardiovascular: normal peripheral pulses, regular rate, rhythm, no murmur Gastrointestinal: normal bowel sounds, non tender, soft Extremities: normal capillary refill, pedal edema (2+ bilaterally) Neurologic/Psychiatric: alert, other (moving all extremities) Skin: normal color, warm/dry Lymphatic: no adenopathy Assessment/Plan Assessment/Plan Admission Status: Inpatient Order (span 2 midnights) Reason for Inpatient Admission: requires ICU care (1) Severe sepsis Status: Acute Assessment & Plan: - Likely 2/2 to UTI, Initial fluid resuscitation completed, IVFs 100 cc/hr, HDS, Started on Vancomycin and Rocephin D1 (2) UTI (urinary tract infection) Status: Acute Assessment & Plan: See Above Qualifiers: Qualified Codes: N30.00 - Acute cystitis without hematuria (3) Acute renal failure Status: Acute Assessment & Plan: Likely prerenal given severe hyperglycemia, will continue to monitor (4) Acute respiratory failure Status: Acute Assessment & Plan: - Dr Mota consulted, CXR with some interstitial markings Qualifiers: Qualified Codes: J96.02 - Acute respiratory failure with hypercapnia (5) Insulin dependent diabetes mellitus with complications (6) Acute hepatitis Status: Acute Assessment & Plan: Will order acute hepatitis panel, likely 2/2 sepsis, US if not improving (7) HTN (hypertension) Status: Chronic Assessment & Plan: - holding bp meds do to sepsis (8) HLD (hyperlipidemia) Status: Chronic Qualifiers: Qualified Codes: E78.5 - Hyperlipidemia, unspecified (9) Obesity hypoventilation syndrome Status: Chronic (10) Morbid obesity with BMI of 50.0-59.9, adult Status: Chronic (11) DVT prophylaxis Status: Acute Assessment & Plan: Lovenox Clinical Quality Measures DVT/VTE Risk/Contraindication: Risk Factor Score Per Nursin RFS Level Per Nursing on Admit: 4+=Very High Copy Copies To 1: BAM SERRA MD, HOLLY R MD Feb 06, 2019 15:02
--- NOTE | 2019-02-06 15:07 | Diagnostic Imaging Report ---
INDICATION: Central line placement. TIME OF EXAM: 2:55 p.m. COMPARISON: Correlation is made with prior study from earlier the same day. FINDINGS: Heart is enlarged. A left side line has its tip near the confluence of the left innominate vein with SVC. There are central congestive changes noted. No effusion or pneumothorax is seen. IMPRESSION: Central line placement. There is cardiomegaly and central congestion. No pneumothorax is detected. Dictated by: Dictated on workstation # [id number]
[2019-02-06] MEDS ORDERED: inSUlin ASPART (NovoLOG) 1 UNIT/0.01 ML (CHARGE PER UNIT) SC SCH (16:00)
[2019-02-06] MEDS ORDERED: ACETAMINOPHEN 650 MG SUPP (TYLENOL) PR PRN (17:00)
[2019-02-06] MEDS ORDERED: PROPOFOL DRIP (ICU) 100 ML IV ONE ×2 (18:12→22:34)
[2019-02-06] MEDS ORDERED: proPOfol 200 MG/20 ML (DIPRIVAN) VIAL IV ONE (18:12)
[2019-02-06] MEDS ORDERED: NS IV 1000 ML 1,000 ML ONE (18:14)
--- NOTE | 2019-02-06 19:13 | Anesthesia-Procedure Note ---
Procedures/Interventions Procedure Start/Stop/Diagnosis Date of Procedure: Feb 06, 2019 Start Time: 18:44 Stop Time: 17:10 Intubation RSI: Yes 100% pre-Ox, [id number]: Yes Intubation Method: orotracheal Videoscope used: Yes Grade View: 1 Medications: Propofol, Rocuronium, Succinylcholine, Versed Mask Ventilation: positive Positive End Tide CO2: Yes Breath Sounds after Intubation: bilateral-equal Intubated with ease: Yes Intubation Complications: no complications Arterial Line Arterial Line Catheter: 20G Type: Radial Location: Right Procedure: prepped, draped in sterile fashion, 1% lidocaine used to numb region, good wave-form was obtained, patient tolerated procedure well, post procedure area cleaned, post procedure dressing applied DARLIN LEONARD CRNA Feb 06, 2019 19:12
[2019-02-06 19:57] LABS: ABG BASE EXCESS -2.7 MMOL/L (-2.5-2.5); ABG OXYGEN SATURATION 96 % (94-100); ABG PCO2 42 MMHG (35-45); ABG PO2 92 MMHG (79-93); ALLENS TEST ART LINE; INSPIRED O2 40%; PATIENT TEMP 98.7; VENTILATOR YES
[2019-02-06 19:59] LABS: ABG PH 7.34 (7.37-7.43)
[2019-02-06] MEDS ORDERED: KETOROLAC 15 MG/ML VIAL IVP ONE (20:30)
--- NOTE | 2019-02-06 20:30 | Diagnostic Imaging Report ---
INDICATION: Respiratory distress. Comparison with 2:54 PM exam. FINDINGS: ET tube now present in good position in the midtrachea. Left central line in good position with tip at the mid to superior vena cava. Cardiomegaly is noted. There has been no significant change of the lungs with continued infiltrates consistent with pulmonary venous congestion. IMPRESSION: Satisfactory ET tube and NG tube placement. Dictated by: Dictated on workstation # [id number]
--- NOTE | 2019-02-06 20:39 | NUR ---
Timeline note 1843 - FABIO Alexandre present to intubate patient 1853 - Bipap turned off and bagging patient 1854- versed 2mg, propofol 150, suxx 80 given 1856 - 7.5 ET placed to 20@ teeth 1857 - Pascale 40 given 1858 - propofol gtt started at 20 1900 - OG placed 1904 - ART line placed by FABIO Alexandre
[2019-02-06] MEDS: CHLORHEXIDINE 0.12% SOLN 15 ML (PERIDEX) UDC PO SCH (21:39)
[2019-02-06] MEDS: VANCOMYCIN 2000 MG/NS 500 ML IVPB IV SCH ×2 (23:30)
[2019-02-06] MEDS ORDERED: KETOROLAC 15 MG/ML VIAL ONE (23:45)
[2019-02-06] MEDS: PROPOFOL DRIP (ICU) 100 ML IV SCH (23:51)
[2019-02-07] VITALS (34 sets, daily range): BP systolic 73–189; BP diastolic 42–87
[2019-02-07] MEDS: inSUlin ASPART (NovoLOG) 1 UNIT/0.01 ML (CHARGE PER UNIT) SC SCH ×4 (00:20→17:28)
--- NOTE | 2019-02-07 01:15 | OPERATIVE REPORT ---
DATE OF SERVICE: 02/06/2019 ADMITTING PHYSICIAN: Dr. Serra. PREPROCEDURE DIAGNOSES: Sepsis, urinary tract infection, pneumonia. POSTPROCEDURE DIAGNOSES: Sepsis, urinary tract infection, pneumonia. PROCEDURE: Placement of left subclavian central venous catheter. SURGEON: Cyndie Ye MD ANESTHESIA: Local. ESTIMATED BLOOD LOSS: Minimal. DISPOSITION: The patient tolerated the procedure well. INDICATIONS: The patient is a 63-year-old female who presented to [facility] with obtundation. She developed neuralgia of her neck and was placed on a medication and since that time, she has lost her appetite and has not been compliant with her normal medications including insulin. She was transferred to the ICU where her respiratory rate was in the 50s and she was tachycardic consistent with sepsis. She will require a central venous catheter for IV pressor therapy. DESCRIPTION OF PROCEDURE: The chest and neck were prepped and draped in standard surgical fashion. A 1% lidocaine was used to anesthetize the subclavian region. The left subclavian vein was then cannulated with drawing of venous blood. Guidewire was then inserted without any resistance. The cannulating needle removed and a small skin incision made using a #11 blade. A tract was then created using a venous dilator and a triple lumen central venous catheter was placed over the guidewire using a Seldinger technique. The catheter was then sutured to the skin using 3-0 silk interrupted sutures. Catheter was then cleaned and covered with Op-Site. The patient tolerated the procedure well. We will get a post-procedure chest x-ray. Job ID: [id number] DocumentID: [id number] Dictated Date: 02/06/2019 14:53:24 Brick Dropper Date: 02/07/2019 01:14:16 Dictated By: CYNDIE YE MD [facility]
[2019-02-07] MEDS: PROPOFOL DRIP (ICU) 100 ML IV SCH ×5 (02:05→23:15)
[2019-02-07 03:15] LABS: BASOPHILS # (AUTO) 0.1 10^3/uL (0.0-0.1); BASOPHILS % (AUTO) 0 % (0-10); EOSINOPHILS % (AUTO) 0 % (0-10); HEMATOCRIT 28 % (35-52); HEMOGLOBIN 9.3 G/DL (11.5-16.0); LYMPHOCYTES # (AUTO) 1.3 X 10^3 (1.0-4.0); LYMPHOCYTES % (AUTO) 5 % (12-44); MEAN CORPUSCULAR HEMOGLOBIN 28 PG (25-34); MEAN CORPUSCULAR HGB CONC 33 G/DL (32-36); MEAN CORPUSCULAR VOLUME 83 FL (80-99); MEAN PLATELET VOLUME 11.9 FL (7.4-10.4); MONOCYTES # (AUTO) 1.1 X 10^3 (0.0-1.0); MONOCYTES % (AUTO) 4 % (0-12); NEUTROPHILS # (AUTO) 24.5 X 10^3 (1.8-7.8); NEUTROPHILS % (AUTO) 91 % (42-75); PLATELET COUNT 155 10^3/uL (130-400); RED CELL DISTRIBUTION WIDTH 15.2 % (10.0-14.5); WHITE BLOOD COUNT 26.9 10^3/uL (4.3-11.0)
[2019-02-07 03:16] LABS: ABG BASE EXCESS -2.7 MMOL/L (-2.5-2.5); ABG OXYGEN SATURATION 96 % (94-100); ABG PCO2 33 MMHG (35-45); ABG PH 7.42 (7.37-7.43); ABG PO2 70 MMHG (79-93); ABG TCO2 22.4 MMOL/L (21.0-31.0)
[2019-02-07 03:17] LABS: ALLENS TEST ART LINE; INSPIRED O2 25%; PATIENT TEMP 96.4; VENTILATOR YES
[2019-02-07 03:34] LABS: ALBUMIN 2.3 GM/DL (3.2-4.5); BILIRUBIN,TOTAL 0.8 MG/DL (0.1-1.0); CALCIUM 8.3 MG/DL (8.5-10.1); CREATININE SERUM 1.18 MG/DL (0.60-1.30); MAGNESIUM 1.7 MG/DL (1.8-2.4); TOTAL PROTEIN 6.5 GM/DL (6.4-8.2)
[2019-02-07] MEDS: NOREPINEPHRINE 4 MG in NS (IVPB) 250 ML IV SCH ×4 (04:40→10:34)
--- NOTE | 2019-02-07 05:00 | Pulmonary Consultation ---
History of Present Illness History of Present Illness Date of Consultation 02/07/19 04:55 Time Seen by Provider: 04:55 Date of Admission History of Present Illness 63yo presented to [facility] ED adn Allergies and Home Medications Allergies Coded Allergies: Sulfa (Sulfonamide Antibiotics) (Unverified Allergy, Unknown, 04/02/17) cefaclor (Unverified Allergy, Unknown, 04/02/17) nitrofurantoin (Verified Allergy, Unknown, HIVES, 02/09/18) Home Medications Cetirizine HCl 10 Mg Tablet, 10 MG PO DAILY, (Reported) Cyclobenzaprine HCl 10 Mg Tablet, 10 MG PO Q8H PRN for MUSCLE SPASMS, (Reported) Diclofenac Sodium/Misoprostol 1 Each Tab.ir.dr, 75 MG PO BID, (Reported) Furosemide 40 Mg Tablet, 40 MG PO DAILY, (Reported) Gabapentin 300 Mg Capsule, 300 MG PO TID, (Reported) Hydrocodone/Acetaminophen 1 Each Tablet, 5-325 MG PO Q4H, (Reported) Insulin Detemir 100 Unit/1 Ml Insuln.pen, 70 UNIT SQ BID, (Reported) Insulin Lispro 100 Unit/1 Ml Vial, 35 UNIT SQ TIDWM, (Reported) Lisinopril 20 Mg Tablet, 10 MG PO DAILY, (Reported) take 1/2 of 20mg Metformin HCl 500 Mg Tab.er.24h, 500 MG PO BID, (Reported) Pravastatin Sodium 40 Mg Tablet, 40 MG PO DAILY, (Reported) Venlafaxine HCl 37.5 Mg Tab, 37.5 MG PO BID WITH MEALS, (Reported) Past Tjprqux-Vnjwew-Ycnwww Hx Past Med/Social Hx: Reviewed Nursing Past Med/Soc Hx Patient Social History Recent Foreign Travel: No Contact w/Someone Who Travel: No Recent Infectious Disease Expo: No Recent Hopitalizations: No Physical Abuse: No Sexual Abuse: No Mistreated: No Fear: No Seasonal Allergies Seasonal Allergies: Yes Past Medical History Surgeries: Yes Gallbladder, Hysterectomy Respiratory: Yes Sleep Apnea Currently Using CPAP: Yes Cardiac: Yes Hypertension Neurological: Yes Neuropathy 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 0.0oz. 154.294619tq; 51.7 BMI Method:Estimated Exam Exam Vital Signs Date Time Temp Pulse Resp B/P (MAP) Pulse Ox O2 Delivery O2 Flow Rate FiO2 02/07/19 04:00 82 23 138/49 (78) 100 Mechanical Ventilator 25.00 02/07/19 04:00 Mechanical Ventilator 40 02/07/19 03:51 71 25 100 25 02/07/19 03:20 96.8 02/07/19 03:00 74 26 134/49 (77) 100 Mechanical Ventilator 25.00 02/07/19 02:05 131/46 02/07/19 02:00 82 25 137/48 (77) 99 Mechanical Ventilator 30.00 02/07/19 01:13 82 26 99 25 02/07/19 01:00 83 02/07/19 01:00 83 23 102/43 (62) 99 Mechanical Ventilator 30.00 02/07/19 00:00 85 27 121/44 (69) 100 Mechanical Ventilator 30.00 02/07/19 00:00 Mechanical Ventilator 40 02/06/19 23:51 93 128/44 02/06/19 23:51 101.3 02/06/19 23:34 101.3 02/06/19 23:00 86 21 128/43 (71) 100 Mechanical Ventilator 30.00 02/06/19 22:40 93 26 100 30 02/06/19 22:00 90 17 120/44 (69) 100 Mechanical Ventilator 30.00 02/06/19 21:00 84 18 104/42 (62) 99 Mechanical Ventilator 30.00 02/06/19 20:40 84 30 100 30 02/06/19 20:30 Mechanical Ventilator 30.00 02/06/19 20:00 Mechanical Ventilator 40 02/06/19 20:00 98.7 02/06/19 20:00 87 21 107/51 (69) 100 Mechanical Ventilator 40.00 02/06/19 19:00 100 16 130/72 (91) 97 Mechanical Ventilator 40.00 02/06/19 19:00 100 02/06/19 19:00 102 20 96 40 02/06/19 18:00 103 35 121/58 (79) 100 NIV Bilevel 30.00 02/06/19 17:23 101.9 02/06/19 17:00 99 48 114/65 (81) 98 NIV Bilevel 30.00 02/06/19 16:53 101.7 6/2/19 16:00 98 119/62 (81) 100 NIV Bilevel 30.00 02/06/19 16:00 100 NIV Bilevel 30 02/06/19 15:05 109 45 99 30.00 02/06/19 15:00 109 25 119/62 (81) 100 Nasal Cannula 4.00 02/06/19 14:00 107 16 105/54 (71) 96 Nasal Cannula 4.00 02/06/19 13:41 109 45 99 30.00 02/06/19 13:02 112 28 135/66 (89) 96 Nasal Cannula 4.00 02/06/19 12:43 109 02/06/19 12:00 100 NIV Bilevel 30 02/06/19 12:00 109 31 114/35 (61) 97 Nasal Cannula 4.00 02/06/19 10:00 112 22 102/61 (75) Nasal Cannula 4.00 02/06/19 09:00 112 39 101/51 (68) Nasal Cannula 4.00 02/06/19 08:52 97 4.00 02/06/19 08:36 115 02/06/19 08:15 121 23 118/57 (77) Nasal Cannula 4.00 02/06/19 06:29 100.2 118 24 109/96 (100) 92 Nasal Cannula 4.00 02/06/19 06:07 100.2 116 27 109/97 Nasal Cannula 4.00 02/06/19 06:04 100.2 116 27 109/97 (101) Nasal Cannula 100.00 I & O 02/07/19 07:00 Intake Total 63063 ml Output Total 1325 ml Balance 9275 ml Height & Weight Height: 5'8.00" Weight: 340lbs. 0.0oz. 154.556269eb; 51.7 BMI Method:Estimated General Appearance: Obese HEENT: No Moist Mucous Membranes (dry mucous membranes with remnants of red candy on her tongue and mouth) Neck: Supple Respiratory: Chest Non Tender, No Accessory Muscle Use, No Respiratory Distress, Decreased Breath Sounds Cardiovascular: Tachycardia Capillary Refill: Less Than 3 Seconds Peripheral Pulses: 2+ Carotid (R), 2+ Carotid (L), 2+ Radial Pulses (R), 2+ Radial Pulses (L) Gastrointestinal: normal bowel sounds, non tender, soft Neurologic/Psychiatric: Alert; No Oriented x3 (states her first name and that she is in hospital. Otherwise not consistently answering questions) Skin: Cool, Pallor Results Lab Laboratory Tests 02/06/19 04:20 02/06/19 08:54 02/07/19 02:55 Assessment/Plan Assessment/Plan Acute respiratory failure -Pt was intubated last night -Continue ventilator therapy Bacteremia with S. Aureus Severe sepsis secondary to UTI Morbid obesity Acute renal failure IDDM Acute hepatitis REGINALDO MEEKS DO Feb 07, 2019 05:00
[2019-02-07] MEDS ORDERED: LEVOFLOXACIN 750 MG/D5W 150 ML PRE-MIX IV SCH (05:30)
[2019-02-07] MEDS: MAGNESIUM 1 GM/100 ML IVPB 100 ML IV SCH (06:43)
[2019-02-07] MEDS: KCL 20 MEQ TAB (K-DUR) PO SCH (06:43)
[2019-02-07] MEDS: POTASSIUM CL 10MEQ/50ML IVPB 50 ML IV SCH (06:43)
[2019-02-07] MEDS ORDERED: SUCCINYLCHOLINE INJ 100 MG/5 ML SYR INJ ONE (07:05)
[2019-02-07] MEDS ORDERED: ROCURONIUM 10 MG/ML 5 ML SYRINGE IV ONE (07:05)
[2019-02-07] MEDS ORDERED: MIDAZOLAM 5 MG/5 ML (VERSED) VIAL IJ ONE (07:05)
[2019-02-07] MEDS: NS IV 1000 ML 1,000 ML IV SCH ×2 (07:10→17:01)
--- NOTE | 2019-02-07 07:44 | Diagnostic Imaging Report ---
INDICATION: Shortness of breath. Portable chest at 3:28 AM FINDINGS: There is an ET tube projecting over the trachea. NG tube projects over the stomach. Left subclavian central line tip projects over the SVC. There is cardiomegaly with pulmonary vascular congestion. Lungs are clear. IMPRESSION: Congestive heart failure. No change from previous day. Dictated by: Dictated on workstation # [id number]
[2019-02-07] MEDS: CHLORHEXIDINE 0.12% SOLN 15 ML (PERIDEX) UDC PO SCH ×2 (08:00→21:30)
[2019-02-07] MEDS: PANTOPRAZOLE 40 MG (PROTONIX) VIAL IV SCH (08:00)
--- NOTE | 2019-02-07 08:14 | Physical Therapy Progress Note ---
Therapy Progress Note Patient is currently on ventilator. PT will assess when medically stable and able to actively participate with therapy. LISE GAUTHIER PT Feb 07, 2019 08:14
--- NOTE | 2019-02-07 08:49 | Progress Note-Cardiology ---
Cardiology SOAP Progress Note Subjective: Not able to provide any history Intubated, sed[facility] Objective: I&O/Vital Signs 02/06/19 02/06/19 02/06/19 02/06/19 21:00 22:00 22:40 23:00 Pulse 84 90 93 86 Resp 18 17 26 21 B/P (MAP) 104/42 (62) 120/44 (69) 128/43 (71) Pulse Ox 99 100 100 100 O2 Delivery Mechanical Ventilator Mechanical Ventilator Mechanical Ventilator O2 Flow Rate 30.00 30.00 30.00 FiO2 30 02/06/19 02/06/19 02/06/19 02/07/19 23:34 23:51 23:51 00:00 Temp 101.3 101.3 Pulse 93 B/P (MAP) 128/44 O2 Delivery Mechanical Ventilator FiO2 40 02/07/19 02/07/19 02/07/19 02/07/19 00:00 01:00 01:00 01:13 Pulse 85 83 83 82 Resp 27 23 26 B/P (MAP) 121/44 (69) 102/43 (62) Pulse Ox 100 99 99 O2 Delivery Mechanical Ventilator Mechanical Ventilator O2 Flow Rate 30.00 30.00 FiO2 25 02/07/19 02/07/19 02/07/19 02/07/19 02:00 02:05 03:00 03:20 Temp 96.8 Pulse 82 74 Resp 25 26 B/P (MAP) 137/48 (77) 131/46 134/49 (77) Pulse Ox 99 100 O2 Delivery Mechanical Ventilator Mechanical Ventilator O2 Flow Rate 30.00 25.00 02/07/19 02/07/19 02/07/19 02/07/19 03:51 04:00 04:00 05:00 Pulse 71 82 83 Resp 25 23 22 B/P (MAP) 138/49 (78) 122/59 (80) Pulse Ox 100 100 100 O2 Delivery Mechanical Ventilator Mechanical Ventilator Mechanical Ventilator O2 Flow Rate 25.00 25.00 FiO2 25 40 02/07/19 02/07/19 02/07/19 02/07/19 05:55 06:00 06:24 07:00 Pulse 76 82 80 Resp 25 29 B/P (MAP) 83/38 153/58 (89) Pulse Ox 100 100 O2 Delivery Mechanical Ventilator O2 Flow Rate 25.00 FiO2 25 02/07/19 02/07/19 07:00 07:00 Pulse 60 82 Resp 27 24 B/P (MAP) 166/61 (96) 189/70 (109) Pulse Ox 100 98 O2 Delivery Mechanical Ventilator Mechanical Ventilator O2 Flow Rate 25.00 25.00 02/07/19 00:00 Intake Total 6600 ml Output Total 950 ml Balance 5650 ml Weight (Pounds): 343 Weight (Ounces): 0.9 Weight (Calculated Kilograms): 155.338324 Constitutional: well-developed, well-nourished, other (Intubated, sedated, on mech vent) Respiratory: No accessory muscle use; other (fair bilat air entry, diminished at the bases) Cardiovascular: regular rate-rhythm, S1 and S2, systolic murmur (soft YULIA at card base) Gastrointestional: No tender; soft; No guarding, No rebound; audible bowel sounds Extremities: No clubbing, No cyanosis, No significant edema Neurologic/Psychiatric: other (Intubated, sedated, on mech vent; cannot cooperte with a neuro exam) Skin: normal color, warm/dry; No rash on exposed areas, No ulcerations on exposed areas Results/Procedures: Labs Laboratory Tests 02/06/19 08:54: White Blood Count 25.6H, Red Blood Count 3.48L, Hemoglobin 9.7L, Hematocrit 29L, Mean Corpuscular Volume 83, Mean Corpuscular Hemoglobin 28, Mean Corpuscular Hem oglobin Concent 34, Red Cell Distribution Width 15.1H, Platelet Count 176, Mean Platelet Volume 11.4H, Neutrophils (%) (Auto) 93H, Lymphocytes (%) (Auto) 3L, Monocytes (%) (Auto) 4, Eosinophils (%) (Auto) 0, Basophils (%) (Auto) 0, Neutrophils # (Auto) 23.8H, Lymphocytes # (Auto) 0.7L, Monocytes # (Auto) 1.1H, Eosinophils # (Auto) 0.0, Basophils # (Auto) 0.0, Sodium Level 127L, Potassium Level 4.5, Chloride Level 98, Carbon Dioxide Level 17L, Anion Gap 12, Blood Urea Nitrogen 43H, Creatinine 1.33H, Estimat Glomerular Filtration Rate 41, BUN/Creatinine Ratio 32, Glucose Level 315H, Lactic Acid Level 2.56*H, Calcium Level 8.6, Corrected Calcium 9.7, Total Bilirubin 1.2H, Aspartate Amino Transf (AST/SGOT) 37H, Alanine Aminotransferase (ALT/SGPT) 21, Alkaline Phosphatase 182H, B-Type Natriuretic Peptide 419.8H, Total Protein 7.0, Albumin 2.6L 02/06/19 11:13: Lactic Acid Level 2.13*H 02/06/19 13:22: Glucometer 284H 02/06/19 13:40: Blood Gas Puncture Site RT BRACH, Blood Gas Patient Temperature 101.2, Arterial Blood pH 7.43, Arterial Blood Partial Pressure CO2 31L, Arterial Blood Partial Pressure O2 108H, Arterial Blood HCO3 20L, Arterial Blood Total CO2 20.9L, Arterial Blood Oxygen Saturation 98, Arterial Blood Base Excess -3.3L, Apolinar Test YES-POS, Blood Gas Ventilator Setting NO, Blood Gas Inspired Oxygen 30% BIPAP 02/06/19 14:10: B-Type Natriuretic Peptide 339.1H 02/06/19 17:01: Glucometer 244H 02/06/19 19:46: Blood Gas Puncture Site RADIAL A LINE, Blood Gas Patient Temperature 98.7, Arterial Blood pH 7.34*L, Arterial Blood Partial Pressure CO2 42, Arterial Blood Partial Pressure O2 92, Arterial Blood HCO3 22L, Arterial Blood Total CO2 23.0, Arterial Blood Oxygen Saturation 96, Arterial Blood Base Excess -2.7L, Apolinar Test ART LINE, Blood Gas Ventilator Setting YES, Blood Gas Inspired Oxygen 40% 02/06/19 23:42: Glucometer 329H 02/07/19 02:55: White Blood Count 26.9H, Red Blood Count 3.37L, Hemoglobin 9.3L, Hematocrit 28L, Mean Corpuscular Volume 83, Mean Corpuscular Hemoglobin 28, Mean Corpuscular Hemoglobin Concent 33, Red Cell Distribution Width 15.2H, Platelet Count 155, Mean Platelet Volume 11.9H, Neutrophils (%) (Auto) 91H, Lymphocytes (%) (Auto) 5 L, Monocytes (%) (Auto) 4, Eosinophils (%) (Auto) 0, Basophils (%) (Auto) 0, Ne utrophils # (Auto) 24.5H, Lymphocytes # (Auto) 1.3, Monocytes # (Auto) 1.1H, Eosinophils # (Auto) 0.0, Basophils # (Auto) 0.1, Blood Gas Puncture Site RIGHT ART LINE, Blood Gas Patient Temperature 96.4, Arterial Blood pH 7.42, Arterial Blood Partial Pressure CO2 33L, Arterial Blood Partial Pressure O2 70L, Arterial Blood HCO3 21L, Arterial Blood Total CO2 22.4, Arterial Blood Oxygen Saturation 96, Arterial Blood Base Excess -2.7L, Apolinar Test ART LINE, Blood Gas Ventilator Setting YES, Blood Gas Inspired Oxygen 25%, Sodium Level 130L, Potassium Level 4.0, Chloride Level 102, Carbon Dioxide Level 18L, Anion Gap 10, Blood Urea Nitrogen 41H, Creatinine 1.18, Estimat Glomerular Filtration Rate 47, BUN/Creatinine Ratio 35, Glucose Level 290H, Calcium Level 8.3L, Corrected Arnaldo cium 9.7, Magnesium Level 1.7L, Total Bilirubin 0.8, Aspartate Amino Transf (AST/SGOT) 69H, Alanine Aminotransferase (ALT/SGPT) 25, Alkaline Phosphatase 157H, Total Protein 6.5, Albumin 2.3L, Triglycerides Level 170H 02/07/19 05:46: Lactic Acid Level 1.35 02/07/19 06:13: Glucometer 283H Microbiology 02/06/19 Blood Culture - Preliminary, Resulted Staphylococcus aureus 02/06/19 Urine Culture - Preliminary, Resulted Escherichia coli Laboratory Tests 02/06/19 04:20 02/06/19 08:54 02/07/19 02:55 A/P: Assessment: Ac resp failure, multifactorial: sepsis, obesity-hypoventilation Staph aureus bacteremia E Coli UTI Renal insufficiency, probably acute, probably due to intravascular volume deplet ioon Hyponatremia: probably partly pseudohyponatremia due to hyperglycemia, and partly due to chronic diuretic use H/o leg swelling, likely due to venous insufficiency, chronically treated with diuretics MPI of March 2017: no ischemia or infarction, LVEF 78% Echo of March 2018: LVEF 65-70%, mild to mod MAC and AoV sclerosis without valvular stenosis, mild MR Hypertension, by history Hyperlipidemia, by history Obesity with obesity-hypoventilation and HAWA DM II Plan: * Complex management due to multiple comorbidities * Repeat echo * Monitor labs ZULEMA CHAVARRIA MD FACP [facility] Feb 07, 2019 08:49
--- NOTE | 2019-02-07 10:01 | Progress Note-Hospitalist ---
Subjective HPI/CC On Admission Date Seen by Provider: Feb 07, 2019 Time Seen by Provider: 09:30 Subjective/Events-last exam Pt intubated and sister at bedside denies any significant concerns Has never been on the ventilator BMI is 52 Very long recovery is expected No significant pain is reported Focused Exam Lactate Level 02/06/19 08:54: Lactic Acid Level 2.56*H 02/06/19 11:13: Lactic Acid Level 2.13*H 02/07/19 05:46: Lactic Acid Level 1.35 Time of Focused Exam: 05:40 Objective Exam Vital Signs Vital Signs Date Time Temp Pulse Resp B/P (MAP) Pulse Ox O2 Delivery O2 Flow Rate FiO2 02/07/19 20:00 97.0 02/07/19 18:24 96 28 95 25 02/07/19 18:00 141/51 (81) Mechanical Ventilator 25.00 Capillary Refill : Less Than 3 Seconds General Appearance: No Apparent Distress, WD/WN, Chronically ill, Obese, Other (intubated) HEENT: No Moist Mucous Membranes (dry mucous membranes with remnants of red candy on her tongue and mouth) Neck: Supple Respiratory: Chest Non Tender, No Accessory Muscle Use, No Respiratory Distress, Decreased Breath Sounds Cardiovascular: Tachycardia Gastrointestinal: Normal Bowel Sounds, Soft, Other (morbidly obese abdomen) Neurologic/Psychiatric: Other (intubated) Skin: Cool, Pallor Results/Procedures Lab Laboratory Tests 02/07/19 02:55 Patient resulted labs reviewed. Assessment/Plan Assessment and Plan Assess & Plan/Chief Complaint Assessment: (1A) VDRF (1) Severe sepsis (2) UTI (urinary tract infection) (3) Acute renal failure (4) Acute respiratory failure (5) Insulin dependent diabetes mellitus with complications (6) Acute hepatitis (7) HTN (hypertension) (8) HLD (hyperlipidemia) (9) Obesity hypoventilation syndrome (10) Morbid obesity with BMI of 50.0-59.9, adult (11) DVT prophylaxis Plan: Intubtation Appreciate Dr Mota Diagnosis/Problems Diagnosis/Problems (1) Severe sepsis Status: Acute (2) Acute respiratory failure Status: Acute Qualifiers: Respiratory failure complication: hypercapnia Qualified Codes: J96.02 - Acute respiratory failure with hypercapnia (3) Acute renal failure Status: Acute Qualifiers: Acute renal failure type: unspecified Qualified Codes: N17.9 - Acute kidney failure, unspecified (4) Obesity hypoventilation syndrome Status: Chronic (5) Morbid obesity with BMI of 50.0-59.9, adult Status: Chronic Clinical Quality Measures DVT/VTE Risk/Contraindication: Risk Factor Score Per Nursin RFS Level Per Nursing on Admit: 4+=Very High YADIRA DORMAN DO Feb 07, 2019 10:01
--- NOTE | 2019-02-07 10:25 | NUR ---
Pt teacher assistant stopped in and visited with this Soda Tester and provided updated info on pt and family. Advised family was coping well.
[2019-02-07] MEDS: cefTRIAXone FOR IV USE 1,000 MG in WATER (STERILE) FOR INJECTION 10 ML IV SCH (10:27)
[2019-02-07] MEDS ORDERED: TROUGH ORDER-PHARMACY XX NR (10:30)
--- NOTE | 2019-02-07 13:02 | Occ Therapy Progress Note ---
Therapy Progress Note Patient is currently on ventilator. OT will assess when medically stable and able to actively participate with therapy. MONTSE GALVAN OT Feb 07, 2019 13:02
[2019-02-07] MEDS: VANCOMYCIN 2000 MG/NS 500 ML IVPB IV SCH ×4 (13:44→23:22)
[2019-02-07] MEDS: DEXMEDETOMIDINE INJECTION 1,000 MCG in NS (IVPB) 250 ML IV SCH ×2 (13:55→13:56)
[2019-02-07] MEDS ORDERED: VENL-48 PO (16:27)
[2019-02-07] MEDS ORDERED: INSU100V16 SQ (16:27)
[2019-02-07] MEDS ORDERED: ESTR0.5T3 PO (16:27)
[2019-02-07] MEDS ORDERED: GABA-488 PO (16:29)
--- NOTE | 2019-02-07 16:30 | NUR ---
UNABLE TO SPEAK WITH THE PATIENT ABOUT HER MEDICATIONS. I UPDATED THE MED REC WITH WHAT HAS BEEN FILLED RECENTLY. ACCORDING TO THE EXT MED HX SHE HAS RECENTLY FILLED 3 MEDICATIONS AT [facility], FLEXERIL, HYDROCODONE, AND DICLOFENAC/MISOPROSTOL. [facility] F[facility]: 01-28-19 NOVOLOG VIAL 40 UNITS TID AC 01-26-19 GABAPENTIN 300MG 1 AM 1 NOON 2 HS #120 01-25-19 LASIX 40MG DAILY 01-25-19 PRAVASTATIN 40MG DAILY 01-25-19 EFFEXOR XR 37.5MG BID 01-25-19 METFORMIN ER 500MG BID 12-24-18 LEVEMIR FLEXPEN 73 UNITS BID 12-24-18 LISINOPRIL 20MG 1/2 DAILY #[facility]: 11-09-18 ESTRADIOL 0.5MG DAILY #90
[2019-02-07] MEDS: fentaNYL INJECTION 100 MCG/2 ML AMP IV PRN ×2 (17:45→23:16)
[2019-02-08] VITALS (32 sets, daily range): BP systolic 77–196; BP diastolic 36–82
[2019-02-08] MEDS: inSUlin ASPART (NovoLOG) 1 UNIT/0.01 ML (CHARGE PER UNIT) SC SCH ×4 (00:31→17:47)
[2019-02-08] MEDS: NOREPINEPHRINE 4 MG in NS (IVPB) 250 ML IV SCH ×8 (01:11→23:49)
[2019-02-08] MEDS: NS IV 1000 ML 1,000 ML IV SCH ×2 (01:20→02:36)
[2019-02-08] MEDS: APAP 325 MG/10.15 ML LIQ (TYLENOL) UDC PO PRN ×2 (02:23→17:48)
--- NOTE | 2019-02-08 02:40 | NUR ---
WEANING PARAMETERS OBTAINED, PT SEDATION OFF PT WILL NOT OPEN EYES OR FOLLOW COMMANDS AT THIS TIME, PARAMETERS OBTAINED ON 5/5 AND 25% FIO2. NIF -37, VC 427, RR 35-45, VE 17, HR 99 SPO2 99 BP 167/81, ETCO2 29, P.01 -6.
[2019-02-08] MEDS ORDERED: NS IV 500 ML 500 ML IV SCH (03:15)
[2019-02-08 03:51] LABS: ABG BASE EXCESS -5.7 MMOL/L (-2.5-2.5); ABG OXYGEN SATURATION 96 % (94-100); ABG PCO2 27 MMHG (35-45); ABG PH 7.44 (7.37-7.43); ABG PO2 75 MMHG (79-93); ABG TCO2 18.4 MMOL/L (21.0-31.0); BASOPHILS % (AUTO) 0 % (0-10); EOSINOPHILS % (AUTO) 0 % (0-10); HEMATOCRIT 28 % (35-52); HEMOGLOBIN 9.3 G/DL (11.5-16.0); LYMPHOCYTES # (AUTO) 1.6 X 10^3 (1.0-4.0); LYMPHOCYTES % (AUTO) 10 % (12-44); MEAN CORPUSCULAR HEMOGLOBIN 27 PG (25-34); MEAN CORPUSCULAR HGB CONC 33 G/DL (32-36); MEAN CORPUSCULAR VOLUME 84 FL (80-99); MONOCYTES # (AUTO) 1.1 X 10^3 (0.0-1.0); MONOCYTES % (AUTO) 7 % (0-12); NEUTROPHILS # (AUTO) 12.5 X 10^3 (1.8-7.8); NEUTROPHILS % (AUTO) 82 % (42-75); PLATELET COUNT 145 10^3/uL (130-400); RED CELL DISTRIBUTION WIDTH 15.4 % (10.0-14.5); WHITE BLOOD COUNT 15.2 10^3/uL (4.3-11.0)
[2019-02-08 03:52] LABS: ALLENS TEST ART LINE; INSPIRED O2 25%; PATIENT TEMP 100.2; VENTILATOR YES
[2019-02-08] MEDS: DEXMEDETOMIDINE INJECTION 1,000 MCG in NS (IVPB) 250 ML IV SCH ×2 (04:07→19:56)
[2019-02-08 04:09] LABS: CALCIUM 8.1 MG/DL (8.5-10.1); CREATININE SERUM 0.99 MG/DL (0.60-1.30); MAGNESIUM 1.7 MG/DL (1.8-2.4); POTASSIUM 4.6 MMOL/L (3.6-5.0)
[2019-02-08] MEDS: fentaNYL INJECTION 100 MCG/2 ML AMP IV PRN ×5 (04:15→17:48)
[2019-02-08] MEDS ORDERED: SODIUM PHOSPHATE INJ 30 MM in NS (IVPB) 250 ML IV ONE (05:30)
[2019-02-08] MEDS ORDERED: LACTATED RINGERS 1,000 ML IV SCH ×2 (05:30→11:45)
--- NOTE | 2019-02-08 05:36 | Pulmonary Progress Note ---
Subjective Time Seen by a Provider: 05:37 Subjective/Events-last exam Pt is sedated on vent. Sepsis Event Evaluation Height, Weight, BMI Height: 5'8.00" Weight: 343lbs. 0.9oz. 155.560707wc; 51.7 BMI Method:Estimated Focused Exam Lactate Level 02/06/19 08:54: Lactic Acid Level 2.56*H 02/06/19 11:13: Lactic Acid Level 2.13*H 02/07/19 05:46: Lactic Acid Level 1.35 Time of Focused Exam: 05:40 Exam Exam Vital Signs Date Time Temp Pulse Resp B/P (MAP) Pulse Ox O2 Delivery O2 Flow Rate FiO2 02/08/19 04:00 Mechanical Ventilator 25 02/08/19 04:00 100 31 143/53 (83) 99 Mechanical Ventilator 25.00 02/08/19 03:00 92 31 91/40 (57) 98 Mechanical Ventilator 25.00 02/08/19 02:53 100.2 02/08/19 02:29 99 35 99 25 02/08/19 02:23 101.1 02/08/19 02:00 86 31 89/41 (57) 97 Mechanical Ventilator 25.00 02/08/19 01:26 95 31 97 25 02/08/19 01:00 95 02/08/19 01:00 95 32 115/49 (71) 98 Mechanical Ventilator 25.00 02/08/19 00:00 96 29 116/50 (72) 97 Mechanical Ventilator 25.00 02/08/19 00:00 99.6 02/08/19 00:00 Mechanical Ventilator 25 02/07/19 23:15 94/48 02/07/19 23:00 94 30 118/48 (71) 95 Mechanical Ventilator 25.00 02/07/19 22:46 95 31 95 25 02/07/19 22:00 92 28 112/48 (69) 96 Mechanical Ventilator 25.00 02/07/19 21:00 93 31 113/48 (69) 95 Mechanical Ventilator 25.00 02/07/19 20:46 93 30 96 25 02/07/19 20:00 94 27 114/48 (70) 95 Mechanical Ventilator 25.00 02/07/19 20:00 97.0 02/07/19 20:00 Mechanical Ventilator 25 02/07/19 19:00 96 02/07/19 19:00 96 20 127/47 (73) 96 Mechanical Ventilator 25.00 02/07/19 18:24 96 28 95 25 02/07/19 18:00 97 23 141/51 (81) 94 Mechanical Ventilator 25.00 02/07/19 17:00 79 21 84/44 (57) 95 Mechanical Ventilator 25.00 02/07/19 16:38 100/58 Mechanical Ventilator 02/07/19 16:00 82 28 91/47 (62) 96 Mechanical Ventilator 25.00 02/07/19 16:00 Mechanical Ventilator 25 02/07/19 16:00 97.4 02/07/19 15:03 84 28 97 25 02/07/19 15:00 84 29 105/49 (67) 96 Mechanical Ventilator 25.00 02/07/19 14:00 99 31 172/54 (93) 95 Mechanical Ventilator 25.00 02/07/19 13:00 87 29 158/57 (90) 98 Mechanical Ventilator 25.00 02/07/19 13:00 87 02/07/19 12:14 80 29 98 25 02/07/19 12:00 98.9 02/07/19 12:00 80 41 156/57 (90) 98 Mechanical Ventilator 25.00 02/07/19 12:00 Mechanical Ventilator 40 02/07/19 11:00 77 26 150/54 (86) 97 Mechanical Ventilator 25.00 02/07/19 10:38 99.5 79 30 163/56 97 Mechanical Ventilator 02/07/19 10:20 79 27 98 25 02/07/19 10:00 78 26 157/54 (88) 97 Mechanical Ventilator 25.00 02/07/19 09:00 80 30 139/49 (79) 97 Mechanical Ventilator 25.00 02/07/19 08:52 78 26 96 25 02/07/19 08:00 82 24 189/70 (109) 98 Mechanical Ventilator 25.00 02/07/19 08:00 Mechanical Ventilator 40 02/07/19 07:00 60 27 166/61 (96) 100 Mechanical Ventilator 25.00 02/07/19 07:00 80 02/07/19 06:24 82 29 100 25 02/07/19 06:00 76 25 153/58 (89) 100 Mechanical Ventilator 25.00 02/07/19 05:55 83/38 I & O 02/08/19 07:00 Intake Total 21689 ml Output Total 1780 ml Balance 8220 ml Height & Weight Height: 5'8.00" Weight: 343lbs. 0.9oz. 155.177411pl; 51.7 BMI Method:Estimated General Appearance: No Apparent Distress, WD/WN, Chronically ill, Obese, Other (intubated) HEENT: No Moist Mucous Membranes (dry mucous membranes with remnants of red candy on her tongue and mouth) Neck: Supple Respiratory: Chest Non Tender, No Accessory Muscle Use, No Respiratory Distress, Decreased Breath Sounds Cardiovascular: Tachycardia Capillary Refill: Less Than 3 Seconds Peripheral Pulses: 2+ Carotid (R), 2+ Carotid (L), 2+ Radial Pulses (R), 2+ Radial Pulses (L) Gastrointestinal: normal bowel sounds, non tender, soft Neurologic/Psychiatric: Other (intubated) Skin: Cool, Pallor Results Lab Laboratory Tests 02/06/19 08:54 02/07/19 02:55 02/08/19 03:43 Assessment/Plan Assessment/Plan Acute respiratory failure -Pt was intubated last night -Continue ventilator therapy Bacteremia with S. Aureus - sensitivities pending -Repeat pike cultures -BC - 1 from central line, 1 from art line, and 1 peripheral -Continue Vancomycin, and Rocephin -Check echo -MRSA swab is negative - Metabolic acidosis -Repeat LA -give a liter bolus of IVF UTI with Ecoli -rocephin Hypomag, hypophos -replace Severe sepsis secondary to UTI Morbid obesity Acute renal failure IDDM Acute hepatitis REGINALDO MEEKS DO Feb 08, 2019 05:36
[2019-02-08] MEDS: MAGNESIUM 1 GM/100 ML IVPB 100 ML IV SCH ×3 (05:55→07:30)
[2019-02-08] MEDS: KCL 20 MEQ TAB (K-DUR) PO SCH (05:55)
[2019-02-08] MEDS: POTASSIUM CL 10MEQ/50ML IVPB 50 ML IV SCH (05:55)
[2019-02-08] MEDS: LACTATED RINGERS 1,000 ML IV SCH ×3 (06:30→23:11)
[2019-02-08 06:42] LABS: HEPATITIS C ANTIBODY C Non-Reactive (Non-Reactive)
--- NOTE | 2019-02-08 07:54 | Cardiology Progress Note ---
Subjective Date Seen by Provider: Feb 08, 2019 Time Seen by Provider: 07:51 Subjective/Events-last exam patient is sedated and intubated, unable to provide any history. Review of Systems General: Other (sedated and intubated, unable to provide review of systems) Focused Exam Lactate Level 02/06/19 11:13: Lactic Acid Level 2.13*H 02/07/19 05:46: Lactic Acid Level 1.35 02/08/19 05:43: Lactic Acid Level 1.54 Time of Focused Exam: 05:40 Lactic Acid Level Laboratory Tests Test 02/08/19 05:43 Lactic Acid Level 1.54 MMOL/L (0.50-2.00) Objective-Cardiology Exam Last Set of Vital Signs Vital Signs 02/08/19 02/08/19 02/08/19 02/08/19 02:53 06:00 06:10 07:00 Temp 100.2 Pulse 94 Resp 36 B/P (MAP) 124/73 (90) Pulse Ox 99 O2 Delivery Mechanical Ventilator O2 Flow Rate 25.00 FiO2 25 Capillary Refill : Less Than 3 Seconds I&O Intake and Output 02/08/19 00:00 Intake Total 23458 ml Output Total 2240 ml Balance 9860 ml Intake Oral 0 ml IV Total 05537 ml Output Urine Total 1950 ml Gastric Drainage Total 290 ml General: Severe Distress, Other (sedated and intubated) HEENT: Atraumatic, PERRLA Neck: Supple Lungs: Other (bilateral rhonchi) Heart: Regular Rate, Normal S1, Normal S2 Abdomen: Normal Bowel Sounds Extremities: No Clubbing, No Cyanosis, Other (peripheral edema) Skin: No Significant Lesion Neuro: Other (sedated and intubated) Psych/Mental Status: Other (sedated and intubated) Results Lab Laboratory Tests 02/08/19 03:43 A/P-Cardiology Admission Diagnosis Acute respiratory failure Pneumonia Sepsis Hypertension Assessment/Plan Acute respiratory failure, sedated and intubated, managed by Dr. Mota Staph aureus bacteremia, receiving antibiotics, will consider ADRIEN once clinically more stable to evaluate the length of treatment Urinary tract infection with Escherichia coli, managed by primary care team H/o leg swelling, likely due to venous insufficiency, chronically treated with diuretics MPI of March 2017: no ischemia or infarction, LVEF 78% Echo of March 2018: LVEF 65-70%, mild to mod MAC and AoV sclerosis without valvular stenosis, mild MR Hypertension, by history Hyperlipidemia, by history Obesity with obesity-hypoventilation and HAWA Clinical Quality Measures DVT/VTE Risk/Contraindication: Risk Factor Score Per Nursin RFS Level Per Nursing on Admit: 4+=Very High JOYCELYN MASON MD Feb 08, 2019 07:54
--- NOTE | 2019-02-08 08:05 | Physical Therapy Progress Note ---
Therapy Progress Note Patient remains sedated and on mechanical ventilator. PT will require new orders when patient is medically stable and able to actively participate with therapy. LISE GAUTHIER PT Feb 08, 2019 08:05
[2019-02-08] MEDS: PANTOPRAZOLE 40 MG (PROTONIX) VIAL IV SCH (08:29)
[2019-02-08] MEDS: cefTRIAXone FOR IV USE 1,000 MG in WATER (STERILE) FOR INJECTION 10 ML IV SCH (08:30)
[2019-02-08 09:16] LABS: ABG OXYGEN SATURATION 95 % (94-100); ABG PCO2 27 MMHG (35-45); ABG PH 7.45 (7.37-7.43); ABG PO2 68 MMHG (79-93); ABG TCO2 19.1 MMOL/L (21.0-31.0); ALLENS TEST ART LINE; INSPIRED O2 25%; PATIENT TEMP 98.8; VENTILATOR YES
--- NOTE | 2019-02-08 10:16 | Diagnostic Imaging Report ---
EXAMINATION: Portable semi-erect AP chest at 3:52 AM. INDICATION: Pneumonia. FINDINGS: The appearance of the chest has improved somewhat since 02/07/2019 as the central pulmonary vascularity and the interstitial densities in both lungs are not as prominent. There is still most likely an element of mild pulmonary congestion present. The heart is stable in size. The mediastinum is not widened. The osseous structures are intact. The supportive tubes and lines seem unchanged in position although the NG tube is difficult to visualize. IMPRESSION: The appearance of the chest has improved as there is less pulmonary congestion than noted on the the prior exam and the lungs are better aerated. A followup study would be recommended for continued evaluation. Dictated by: Dictated on workstation # [id number]
--- NOTE | 2019-02-08 10:24 | Progress Note-Hospitalist ---
Subjective HPI/CC On Admission Date Seen by Provider: Feb 08, 2019 Time Seen by Provider: 10:00 Subjective/Events-last exam Pt is still intubated Weaning of vent Reviewed labs and meds Family at the bedside Answering questions at times with fluttering of her eyes Prognosis guarded Obesity of hypoventilation syndrome noted Review of Systems General: Fatigue Focused Exam Lactate Level 02/06/19 11:13: Lactic Acid Level 2.13*H 02/07/19 05:46: Lactic Acid Level 1.35 02/08/19 05:43: Lactic Acid Level 1.54 Time of Focused Exam: 05:40 Objective Exam Vital Signs Vital Signs Date Time Temp Pulse Resp B/P (MAP) Pulse Ox O2 Delivery O2 Flow Rate FiO2 02/08/19 19:46 99.8 02/08/19 18:00 82 25 127/65 (85) 100 Mechanical Ventilator 25.00 02/08/19 17:58 25 Capillary Refill : Less Than 3 Seconds General Appearance: No Apparent Distress, WD/WN, Chronically ill, Obese, Other (intubated) HEENT: No Moist Mucous Membranes (dry mucous membranes with remnants of red candy on her tongue and mouth) Neck: Supple Respiratory: Chest Non Tender, No Accessory Muscle Use, No Respiratory Distress, Decreased Breath Sounds Cardiovascular: Tachycardia Gastrointestinal: Normal Bowel Sounds, Soft, Other (morbidly obese abdomen) Neurologic/Psychiatric: Other (intubated) Skin: Cool, Pallor Results/Procedures Lab Laboratory Tests 02/08/19 03:43 Patient resulted labs reviewed. Assessment/Plan Assessment and Plan Assess & Plan/Chief Complaint Assessment: (1A) VDRF (1) Severe sepsis (2) UTI (urinary tract infection) (3) Acute renal failure (4) Acute respiratory failure (5) Insulin dependent diabetes mellitus with complications (6) Acute hepatitis (7) HTN (hypertension) (8) HLD (hyperlipidemia) (9) Obesity hypoventilation syndrome (10) Morbid obesity with BMI of 50.0-59.9, adult (11) DVT prophylaxis Plan: Intubation weaning Appreciate Dr Mota Diagnosis/Problems Diagnosis/Problems (1) Severe sepsis Status: Acute (2) Acute respiratory failure Status: Acute Qualifiers: Respiratory failure complication: hypercapnia Qualified Codes: J96.02 - Acute respiratory failure with hypercapnia (3) Acute renal failure Status: Acute Qualifiers: Acute renal failure type: unspecified Qualified Codes: N17.9 - Acute kidney failure, unspecified (4) Obesity hypoventilation syndrome Status: Chronic (5) Morbid obesity with BMI of 50.0-59.9, adult Status: Chronic Clinical Quality Measures DVT/VTE Risk/Contraindication: Risk Factor Score Per Nursin RFS Level Per Nursing on Admit: 4+=Very High YADIRA DORMAN DO Feb 08, 2019 10:24
[2019-02-08] MEDS ORDERED: TROUGH ORDER-PHARMACY XX NR (10:30)
[2019-02-08 11:32] LABS: BILIRUBIN,URINE NEGATIVE (NEGATIVE); CLARITY,URINE CLEAR; COLOR,URINE YELLOW; GLUCOSE, URINE (UA) NEGATIVE (NEGATIVE); KETONES,URINE NEGATIVE (NEGATIVE); LEUKOCYTE ESTERASE ,URINE 1+ (NEGATIVE); NITRITE,URINE NEGATIVE (NEGATIVE); PH,URINE 5 (5-9); PROTEIN,URINE 2+ (NEGATIVE); UROBILINOGEN,URINE NORMAL (NORMAL)
[2019-02-08] MEDS: CHLORHEXIDINE 0.12% SOLN 15 ML (PERIDEX) UDC PO SCH ×2 (11:33→21:30)
[2019-02-08] MEDS: VANCOMYCIN 2000 MG/NS 500 ML IVPB IV SCH ×2 (11:36)
--- NOTE | 2019-02-08 11:57 | NUR ---
VANCOMYCIN DOSING TROUGH LEVEL 20.8 - DECREASE DOSE TO VANC 1750 MG Q12H CHECK TROUGH LEVEL 02/09 1030 PLEASE HOLD DOSE AND CONTACT PHARMACY IF LEVEL IS GREATER THAN 20
[2019-02-08 12:17] LABS: BACTERIA,URINE TRACE /HPF
[2019-02-08] MEDS: VANCOMYCIN INJECTION 1,750 MG in NS IV 500 ML 500 ML IV SCH ×2 (12:24→22:46)
--- NOTE | 2019-02-08 12:58 | Occ Therapy Progress Note ---
Therapy Progress Note Patient remains sedated and on ventilator. pt is not appropriate for OT services at this time. OT will continue to follow. MONTSE GALVAN OT Feb 08, 2019 12:58
--- NOTE | 2019-02-08 17:49 | Diagnostic Imaging Report ---
INDICATION: ET tube placement. TIME OF EXAM: 5:35 p.m. COMPARISON: Correlation is made with prior study from earlier today. FINDINGS: ET tube remains with tip above the vladimir. NG tube appears to pass below the diaphragm. The left-sided line has tip overlying the SVC. Heart is enlarged. There are central congestive changes. There may be some infiltrate in the left base as well. Right lung appears to be fairly clear. No effusion or pneumothorax is seen. IMPRESSION: Satisfactory endotracheal tube location. Dictated by: Dictated on workstation # [id number]
[2019-02-09] VITALS (29 sets, daily range): BP systolic 94–160; BP diastolic 35–68
[2019-02-09] MEDS: DEXMEDETOMIDINE INJECTION 1,000 MCG in NS (IVPB) 250 ML IV SCH (00:56)
[2019-02-09] MEDS: inSUlin ASPART (NovoLOG) 1 UNIT/0.01 ML (CHARGE PER UNIT) SC SCH ×5 (01:02→23:12)
[2019-02-09] MEDS: APAP 325 MG/10.15 ML LIQ (TYLENOL) UDC PO PRN (03:41)
[2019-02-09 03:43] LABS: BASOPHILS % (AUTO) 0 % (0-10); EOSINOPHILS % (AUTO) 0 % (0-10); HEMATOCRIT 27 % (35-52); HEMOGLOBIN 8.7 G/DL (11.5-16.0); LYMPHOCYTES # (AUTO) 1.7 X 10^3 (1.0-4.0); LYMPHOCYTES % (AUTO) 15 % (12-44); MEAN CORPUSCULAR HEMOGLOBIN 27 PG (25-34); MEAN CORPUSCULAR HGB CONC 32 G/DL (32-36); MEAN CORPUSCULAR VOLUME 85 FL (80-99); MEAN PLATELET VOLUME 12.8 FL (7.4-10.4); MONOCYTES # (AUTO) 0.9 X 10^3 (0.0-1.0); MONOCYTES % (AUTO) 7 % (0-12); NEUTROPHILS # (AUTO) 9.2 X 10^3 (1.8-7.8); NEUTROPHILS % (AUTO) 78 % (42-75); PLATELET COUNT 110 10^3/uL (130-400); RED CELL DISTRIBUTION WIDTH 15.1 % (10.0-14.5); WHITE BLOOD COUNT 11.9 10^3/uL (4.3-11.0)
[2019-02-09 04:03] LABS: ABG BASE EXCESS -6.1 MMOL/L (-2.5-2.5); ABG OXYGEN SATURATION 93 % (94-100); ABG PCO2 30 MMHG (35-45); ABG PH 7.39 (7.37-7.43); ABG PO2 77 MMHG (79-93); ABG TCO2 18.6 MMOL/L (21.0-31.0)
[2019-02-09 04:04] LABS: ALLENS TEST ART LINE; INSPIRED O2 25%; PATIENT TEMP 101; VENTILATOR YES
[2019-02-09 04:06] LABS: BUN/CREATININE RATIO 38; CALCIUM 7.8 MG/DL (8.5-10.1); CARBON DIOXIDE 16 MMOL/L (21-32); CHLORIDE 111 MMOL/L (98-107); CREATININE SERUM 0.93 MG/DL (0.60-1.30); GFR ESTIMATED > 60; GLUCOSE 270 MG/DL (70-105); MAGNESIUM 1.7 MG/DL (1.8-2.4); PHOSPHORUS 3.1 MG/DL (2.3-4.7); POTASSIUM 4.7 MMOL/L (3.6-5.0); SODIUM 136 MMOL/L (135-145)
--- NOTE | 2019-02-09 04:59 | Pulmonary Progress Note ---
Subjective Time Seen by a Provider: 05:01 Subjective/Events-last exam PT is intubated. RT is doing weaning parameters. Sepsis Event Evaluation Height, Weight, BMI Height: 5'8.00" Weight: 354lbs. 0.0oz. 160.871939qu; 51.7 BMI Method:Estimated Focused Exam Lactate Level 02/06/19 11:13: Lactic Acid Level 2.13*H 02/07/19 05:46: Lactic Acid Level 1.35 02/08/19 05:43: Lactic Acid Level 1.54 Time of Focused Exam: 05:40 Exam Exam Vital Signs Date Time Temp Pulse Resp B/P (MAP) Pulse Ox O2 Delivery O2 Flow Rate FiO2 02/09/19 04:49 76 33 99 25 02/09/19 04:00 78 32 100/43 (62) 99 Mechanical Ventilator 25.00 102/62 (75) 02/09/19 03:41 101.1 02/09/19 03:00 78 32 101/54 (70) 95 Mechanical Ventilator 101/54 (70) 02/09/19 02:00 80 30 101/44 (63) 97 Mechanical Ventilator 25.00 160/54 (89) 02/09/19 01:45 71 32 94 25 02/09/19 01:04 63 02/09/19 01:00 63 27 95/52 (66) 100 Mechanical Ventilator 25.00 100/64 (76) 02/09/19 00:00 63 32 95/44 (61) 99 Mechanical Ventilator 25.00 100/53 (69) 02/09/19 00:00 Mechanical Ventilator 25 02/08/19 23:23 80 18 99 25 02/08/19 23:20 63 32 77/36 (50) 99 Mechanical Ventilator 25.00 88/47 (61) 02/08/19 22:00 78 33 88/41 (57) 99 Mechanical Ventilator 25.00 103/56 (72) 02/08/19 21:00 77 30 85/40 (55) 98 Mechanical Ventilator 25.00 118/64 (82) 02/08/19 20:41 79 32 99 25 02/08/19 20:00 Mechanical Ventilator 25 02/08/19 20:00 76 33 88/41 (57) 99 Mechanical Ventilator 25.00 108/78 (88) 02/08/19 19:46 99.8 02/08/19 19:06 80 02/08/19 19:00 80 32 91/42 (58) 99 Mechanical Ventilator 25.00 113/58 (76) 02/08/19 18:18 101.5 02/08/19 18:00 82 25 127/65 (85) 100 Mechanical Ventilator 25.00 02/08/19 17:58 82 28 99 25 02/08/19 17:48 100.1 02/08/19 17:00 80 30 122/65 (84) 100 Mechanical Ventilator 25.00 02/08/19 16:00 80 54 95/41 (59) 100 Mechanical Ventilator 25.00 02/08/19 16:00 Mechanical Ventilator 25 02/08/19 16:00 100.1 02/08/19 15:00 82 56 92/41 (58) 99 Mechanical Ventilator 25.00 02/08/19 14:23 84 30 99 25 02/08/19 14:00 84 38 89/41 (57) 99 Mechanical Ventilator 25.00 02/08/19 13:00 89 30 100/41 (60) 98 Mechanical Ventilator 25.00 02/08/19 13:00 89 02/08/19 12:00 102 15 123/56 (78) 97 Mechanical Ventilator 25.00 02/08/19 12:00 Mechanical Ventilator 25 02/08/19 12:00 97.5 02/08/19 11:00 103 35 129/45 (73) 96 Mechanical Ventilator 25.00 02/08/19 10:27 105 38 97 25 02/08/19 10:00 131 28 196/54 (101) 91 Mechanical Ventilator 25.00 02/08/19 09:00 101 40 148/74 (98) 98 Mechanical Ventilator 25.00 02/08/19 08:00 93 34 142/43 (76) 98 Mechanical Ventilator 25.00 02/08/19 08:00 Mechanical Ventilator 25 02/08/19 07:00 94 34 102/42 (62) 99 Mechanical Ventilator 25.00 02/08/19 07:00 94 02/08/19 06:10 90 36 99 25 02/08/19 06:00 90 28 124/73 (90) 99 Mechanical Ventilator 25.00 02/08/19 05:00 88 31 100/43 (62) 99 Mechanical Ventilator 25.00 I & O 02/09/19 07:00 Intake Total 51677 ml Output Total 2275 ml Balance 8725 ml Height & Weight Height: 5'8.00" Weight: 354lbs. 0.0oz. 160.035357hr; 51.7 BMI Method:Estimated General Appearance: No Apparent Distress, WD/WN, Chronically ill, Obese, Other (intubated) HEENT: No Moist Mucous Membranes (dry mucous membranes with remnants of red candy on her tongue and mouth) Neck: Supple Respiratory: Chest Non Tender, No Accessory Muscle Use, No Respiratory Distress, Decreased Breath Sounds Cardiovascular: Tachycardia Capillary Refill: Less Than 3 Seconds Peripheral Pulses: 2+ Carotid (R), 2+ Carotid (L), 2+ Radial Pulses (R), 2+ Radial Pulses (L) Gastrointestinal: normal bowel sounds, non tender, soft Neurologic/Psychiatric: Other (intubated) Skin: Cool, Pallor Results Lab Laboratory Tests 02/08/19 03:43 02/09/19 03:30 Assessment/Plan Assessment/Plan Acute respiratory failure -Continue ventilator therapy -Will attempt weaning today Bacteremia with S. Aureus - sensitivities pending -Repeat pike cultures -BC - 1 from central line, 1 from art line, and 1 peripheral - Vancomycin, and Rocephin -Check echo -MRSA swab is negative - Metabolic acidosis -Repeat LA -give a liter bolus of IVF UTI with Ecoli -rocephin Hypomag, hypophos -replace Severe sepsis secondary to UTI Morbid obesity Acute renal failure IDDM Acute hepatitis REGINALDO MEEKS DO Feb 09, 2019 04:59
[2019-02-09] MEDS ORDERED: SODIUM BICARB 8.4% 50 MEQ/50 ML VIAL IV ONE (05:00)
[2019-02-09] MEDS: KCL 20 MEQ TAB (K-DUR) PO SCH (05:49)
[2019-02-09] MEDS: MAGNESIUM 1 GM/100 ML IVPB 100 ML IV SCH ×3 (05:49→06:41)
[2019-02-09] MEDS: POTASSIUM CL 10MEQ/50ML IVPB 50 ML IV SCH (05:49)
[2019-02-09 06:14] LABS: ABG BASE EXCESS -1.4 MMOL/L (-2.5-2.5); ABG OXYGEN SATURATION 98 % (94-100); ABG PCO2 33 MMHG (35-45); ABG PH 7.44 (7.37-7.43); ABG PO2 93 MMHG (79-93); ABG TCO2 22.8 MMOL/L (21.0-31.0)
[2019-02-09 06:19] LABS: ALLENS TEST ART LINE; INSPIRED O2 25%; PATIENT TEMP 101.1; VENTILATOR YES
--- NOTE | 2019-02-09 07:00 | NUR ---
Patient extubated at 0700, 3L oxygen per NC placed. Patient tolerated procedure well, VSS.
[2019-02-09] MEDS: PANTOPRAZOLE 40 MG (PROTONIX) VIAL IV SCH (08:11)
[2019-02-09] MEDS: CHLORHEXIDINE 0.12% SOLN 15 ML (PERIDEX) UDC PO SCH ×2 (08:11→20:39)
--- NOTE | 2019-02-09 08:37 | Progress Note-Cardiology ---
Cardiology SOAP Progress Note Subjective: Sitting up in bed, extubated this morning. Gen weakness. Multiple family at the bedside. No c/o CP. C/O neck pain. Lethargic, but easily awakened , not able to obtain much information. Objective: I&O/Vital Signs 02/08/19 02/08/19 02/09/19 02/09/19 23:20 23:23 00:00 00:00 Pulse 63 80 63 Resp 32 18 32 B/P (MAP) 77/36 (50) 95/44 (61) 88/47 (61) 100/53 (69) Pulse Ox 99 99 99 O2 Delivery Mechanical Ventilator Mechanical Ventilator Mechanical Ventilator O2 Flow Rate 25.00 25.00 FiO2 25 25 02/09/19 02/09/19 02/09/19 02/09/19 01:00 01:04 01:45 02:00 Pulse 63 63 71 80 Resp 27 32 30 B/P (MAP) 95/52 (66) 101/44 (63) 100/64 (76) 160/54 (89) Pulse Ox 100 94 97 O2 Delivery Mechanical Ventilator Mechanical Ventilator O2 Flow Rate 25.00 25.00 FiO2 25 02/09/19 02/09/19 02/09/19 02/09/19 03:00 03:41 04:00 04:00 Temp 101.1 101.1 Pulse 78 78 Resp 32 32 B/P (MAP) 101/54 (70) 100/43 (62) 101/54 (70) 102/62 (75) Pulse Ox 95 99 O2 Delivery Mechanical Ventilator Mechanical Ventilator O2 Flow Rate 25.00 02/09/19 02/09/19 02/09/19 02/09/19 04:00 04:11 04:49 05:00 Temp 100.3 Pulse 76 77 Resp 33 36 B/P (MAP) 98/45 (62) 104/61 (75) Pulse Ox 99 100 O2 Delivery Mechanical Ventilator Mechanical Ventilator O2 Flow Rate 25.00 FiO2 25 25 02/09/19 02/09/19 02/09/19 02/09/19 05:05 06:00 06:31 07:00 Pulse 79 82 81 81 Resp 45 42 49 B/P (MAP) 114/43 (66) 108/59 (75) Pulse Ox 100 100 100 O2 Delivery Mechanical Ventilator O2 Flow Rate 25.00 FiO2 30 6/01/2302/09/19 02/09/19 02/09/19 07:00 08:00 08:00 09:05 Pulse 82 73 85 Resp 13 24 38 B/P (MAP) 113/35 (61) 102/41 (61) 106/42 (63) 102/50 (67) 94/61 (72) 113/68 (83) Pulse Ox 97 98 100 O2 Delivery Mechanical Ventilator Mechanical Ventilator Nasal Cannula Mechanical Ventilator O2 Flow Rate 25.00 25.00 3.00 25.00 02/09/19 10:00 Pulse 89 Resp 51 B/P (MAP) 115/44 (67) 114/61 (78) Pulse Ox 99 O2 Delivery Mechanical Ventilator O2 Flow Rate 25.00 02/09/19 00:00 Intake Total 7000 ml Output Total 1975 ml Balance 5025 ml Weight (Pounds): 369 Weight (Ounces): 3.0 Weight (Calculated Kilograms): 167.408148 Constitutional: well-developed, well-nourished Respiratory: No accessory muscle use; rhonchi (scattered), other (fair bilat air entry, diminished at the bases) Cardiovascular: regular rate-rhythm, S1 and S2, systolic murmur (soft YULIA at card base) Gastrointestional: No tender; soft; No guarding, No rebound; audible bowel sounds Extremities: No clubbing, No cyanosis; significant edema (bilat upper and lower extremity swelling, 2-3 (+)) Neurologic/Psychiatric: other (moves extremities) Skin: normal color, warm/dry; No rash on exposed areas, No ulcerations on exposed areas Results/Procedures: Labs Laboratory Tests 02/08/19 11:41: Glucometer 253H 02/08/19 17:46: Glucometer 293H 02/09/19 00:55: Glucometer 269H 02/09/19 03:30: White Blood Count 11.9H, Red Blood Count 3.18L, Hemoglobin 8.7L, Hematocrit 27L, Mean Corpuscular Volume 85, Mean Corpuscular Hemoglobin 27, Mean Corpuscular Hemoglobin Concent 32, Red Cell Distribution Width 15.1H, Platelet Count 110L, Mean Platelet Volume 12.8H, Neutrophils (%) (Auto) 78H, Lymphocytes (%) (Auto) 15, Monocytes (%) (Auto) 7, Eosinophils (%) (Auto) 0, Basophils (%) (Auto) 0, Neutrophils # (Auto) 9.2H, Lymphocytes # (Auto) 1.7, Monocytes # (Auto) 0.9, Eosinophils # (Auto) 0.0, Basophils # (Auto) 0.0, Blood Gas Puncture Site RIGHT RADIAL, Blood Gas Patient Temperature 101, Arterial Blood pH 7.39, Arterial Blood Partial Pressure CO2 30L, Arterial Blood Partial Pressure O2 77L, Arterial Blood HCO3 18L, Arterial Blood Total CO2 18.6L, Arterial Blood Oxygen Saturation 93L, Arterial Blood Base Excess -6.1L, Apolinar Test ART LINE, Blood Gas Ventilator Setting YES, Blood Gas Inspired Oxygen 25%, Sodium Level 136, Potassium Level 4.7, Chloride Level 111H, Carbon Dioxide Level 16L, Anion Gap 9, Blood Urea Nitrogen 35H, Creatinine 0.93, Estimat Glomerular Filtration Rate > 60, BUN/Creatinine Ratio 38, Glucose Level 270H, Calcium Level 7.8L, Phosphorus Level 3.1, Magnesium Level 1.7L 02/09/19 06:00: Blood Gas Puncture Site RIGHT RADIAL, Blood Gas Patient Temperature 101.1, Arterial Blood pH 7.44H, Arterial Blood Partial Pressure CO2 33L, Arterial Blood Partial Pressure O2 93, Arterial Blood HCO3 22L, Arterial Blood Total CO2 22.8, Arterial Blood Oxygen Saturation 98, Arterial Blood Base Excess -1.4, Apolinar Test ART LINE, Blood Gas Ventilator Setting YES, Blood Gas Inspired Oxygen 25% 02/09/19 10:20: Glucometer 225H 02/09/19 10:24: Vancomycin Level Trough 19.7 Microbiology 02/08/19 Blood Culture - Preliminary, Resulted Staphylococcus aureus 02/06/19 Gram Stain - Final, Resulted 02/06/19 Sputum Culture - Preliminary, Resulted Staphylococcus aureus 02/08/19 Urine Culture - Final, Complete NO GROWTH A/P: Assessment: Ac resp failure, multifactorial: sepsis, obesity-hypoventilation - extubated 02-09-19 Staph aureus bacteremia E Coli UTI - management per medical services Renal insufficiency, probably acute, probably due to intravascular volume depletion Hyponatremia: probably partly pseudohyponatremia due to hyperglycemia, and partly due to chronic diuretic use H/o leg swelling, likely due to venous insufficiency, chronically treated with diuretics MPI of March 2017: no ischemia or infarction, LVEF 78% Echo of February 2019: LVEF 65-70%; Grade 2 diastolic dysfunc; Mod calcified mitral valve; aortic sclerosis; PASP 35-40 mmHg Hypertension, by history Hyperlipidemia, by history Obesity with obesity-hypoventilation and HAWA DM II Plan: * Complex management due to multiple comorbidities * Extubated this morning * Treat with diuretics as indicated * Mild anemia/thrombocytopenia - monitor lab closely * Replace electrolytes Physician Assessment Physician Assessment Somnolent, does not report symptoms by bed side Lungs: dec bs at bases Cor: reg Ext: chronic mod pitting and nonpitting edema A&R * As documented in out note above that I updated (italics) and as noted below * Complex management * I had a long and detailed discussion with her regarding her CV issues, including results of echo February 08 * Continue current regimen * Monitor labs ADELAIDE MAYORGA [employer]TER Feb 09, 2019 08:37 ZULEMA CHAVARRIA MD [facility] Feb 09, 2019 11:15
--- NOTE | 2019-02-09 08:52 | Diagnostic Imaging Report ---
EXAM: CHEST 1 VIEW, AP/PA ONLY. INDICATION: Sepsis. COMPARISON: Chest radiograph of 02/08/2019. FINDINGS: The examination is limited by underpenetration. Cardiomegaly. No definite pleural effusion or pneumothorax. The ETT tip remains at the level of the clavicles. The NG tube tip is not well seen. IMPRESSION: 1. Limited evaluation. 2. Cardiomegaly. 3. ETT tip at the level of the clavicles. NG tip cannot be evaluated. Dictated by: Dictated on workstation # [id number]
--- NOTE | 2019-02-09 10:00 | Physical Therapy Evaluation ---
PT Evaluation-General Medical Diagnosis Admission Date Feb 06, 2019 at 06:27 Medical Diagnosis: sepsis, respiratory failure Onset Date: Feb 06, 2019 Therapy Diagnosis Therapy Diagnosis: impaired mobility, strength, endurance Height/Weight Height (Feet): 5 Height (Inches): 8.00 Weight (Pounds): 369 Weight (Ounces): 3.0 Precautions Precautions/Isolations: Fall Prevention, Standard Precautions Referral Physician: Svetlana Reason for Referral: Evaluation/Treatment Medical History Additional Medical History Past Medical History Surgeries: Yes Gallbladder, Hysterectomy Respiratory: Yes Sleep Apnea Currently Using CPAP: Yes Cardiac: Yes Hypertension Neurological: Yes Neuropathy [employer]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 Gastrointestinal: Yes Chronic Constipation, Hemorrhoids Musculoskeletal: Yes Arthritis Endocrine: Yes Diabetes, Insulin dep Depression Reviewed History: Yes Social History Home: Single Level Current Living Status: Spouse Entry Into Home: Stairs With Railing PT Steps Into Home: 1 Prior/Core FIM Prior Level of Function Therapy Code Descriptions/Definitions Functional [place] Measure: 0=Not Assessed/NA 4=Minimal Assistance 1=Total Assistance 5=Supervision or Setup 2=Maximal Assistance 6=Modified [place] 3=Moderate Assistance 7=Complete [place] Therapy Quality Codes: 6 Independent with activity with or without an assistive device 5 Patient requires set up or clean up by helper. Patient completes activity by themselves 4 Supervision or touching assist (CGA). Bernice provide cues , steadying assist 3 The helper provides less than half the effort to complete the activity 2 The helper provides more than half the effort to complete the activity 1 Dependent. The helper does all the effort to complete an activity 7 Patient refused to complete or attempt activity 9 The patient did not perform the activity before the current illness or injury 88 Not attempted due to Medical conditions or safety concerns Functional Abilities and Goals: Independent: Patient completed the activities by him/herself, with or without an assistive device, with no assistance from a helper. Needed Some Help: Patient needed partial assistance from another person to complete activities. Dependent: A helper completed the activities for the patient. Unknown: Not Applicable: Bed Mobility: 4 Transfers (B,C,W/C) (FIM): 4 Gait: 6 Stairs: 1 Indoor Mobility (Ambulation): Independent Prior Devices Use: Walker Patient only has 1 step to get into her home. Her says that she needed some help with supine to sit and sit to stand to get out of her recliner but ambulated in the home with a rolling walker but did not use a walker outside of the home. PT Evaluation-Current Subjective Patient in bed pre tx, agrees to PT, has unrated pain in her legs. Family member states she has a pinched nerve in her neck. Patient is very drowsy, does not open eyes unless cued. Pt/Family Goals none stated Objective Patient Orientation: Person, Confused, Unable to Assess Attachments: SCD's, Oxygen, Booker Catheter, IV ROM/Strength ROM Lower Extremities limited generally due to obesity Strength Lower Extremities 2/5 gross bilateral lower extremities Neuromuscular (Tone, Coordination, Reflexes) NT Sensory Hearing: Functional Transfers Therapy Code Descriptions/Definitions Functional [place] Measure: 0=Not Assessed/NA 4=Minimal Assistance 1=Total Assistance 5=Supervision or Setup 2=Maximal Assistance 6=Modified [place] 3=Moderate Assistance 7=Complete [place] Transfers (B, C, W/C) (FIM): 1 Scootin Rollin Supine to/from Sit: 1 Patient attempts to assist with arms but has poor effort. Patient is able to sit at the edge of the bed with max assist for just a few minutes before needing to lay down. Balance Sitting Static: Poor Sitting Dynamic: Poor Treatment supine LE exercises bilateral x10 (AP, HS) Assessment/Needs Patient has impaired mobility, strength, endurance. She is virtually dependent for supine to sit. No standing at this time. Rehab Potential: Guarded PT Short Term Goals Short Term Goals Time Frame: Feb 16, 2019 Transfers (B,C,W/C) (FIM): 3 Gait (FIM): 1 Gait Distance Comment: 5' Gait Level of Assist: 3 Gait Assistive Device: FWW PT Plan Problem List Problem List: Activity Tolerance, Functional Strength, Safety, Balance, Gait, Transfer, Bed Mobility, ROM Treatment/Plan Treatment Plan: Continue Plan of Care Treatment Plan: Bed Mobility, Concurrent Therapy, Education, Functional Activity [place], Functional Strength, Gait, Safety, Therapeutic Exercise, Transfers Treatment Duration: Feb 16, 2019 Frequency: 6 times per week Estimated Hrs Per Day: .25 hour per day (15-30') Patient and/or Family Agrees t: Yes Safety Risks/Education Patient Education: Transfer Techniques, Correct Positioning, Safety Issues Teaching Recipient: Patient Teaching Methods: Demonstration, Discussion Response to Teaching: Reinforcement Needed Discharge Recommendations Plan Patient will perform bed mobility and transfer training, balance and endurance training, functional strengthening, gait training, and education, to improve functional mobility and independence at home. Therapy D/C Recommendations: Home w/ Family Support, Half-Way (TCU/NH) Time/GCodes Time In: 922 Time Out: 941 Total Billed Treatment Time: 19 Total Billed Treatment 1 visit JACK 19' GAURAV BLAND PT Feb 09, 2019 10:00
[2019-02-09] MEDS: morphine INJ 10 MG/ML 1ML (SYR OR VIAL) IVP PRN ×3 (10:22→22:40)
--- NOTE | 2019-02-09 10:25 | Progress Note-Hospitalist ---
Subjective HPI/CC On Admission Date Seen by Provider: Feb 09, 2019 Time Seen by Provider: 09:15 Subjective/Events-last exam Pt extubated today PT and OT will be ordered In pt rehab candidate since she uses a walker at home and independent with her ADL's and lives with her Reviewed meds and labs Review of Systems General: Fatigue Neurological: Confusion Focused Exam Lactate Level 02/07/19 05:46: Lactic Acid Level 1.35 02/08/19 05:43: Lactic Acid Level 1.54 Time of Focused Exam: 05:40 Objective Exam Vital Signs Vital Signs Date Time Temp Pulse Resp B/P (MAP) Pulse Ox O2 Delivery O2 Flow Rate FiO2 02/09/19 20:54 78 33 99 40.00 02/09/19 20:43 NIV Bilevel 02/09/19 20:39 98.8 02/09/19 18:00 160/48 (85) 110/64 (79) 02/09/19 06:31 30 Capillary Refill : Less Than 3 Seconds General Appearance: No Apparent Distress, WD/WN, Chronically ill, Obese, Other (intubated) HEENT: No Moist Mucous Membranes (dry mucous membranes with remnants of red candy on her tongue and mouth) Neck: Supple Respiratory: Chest Non Tender, No Accessory Muscle Use, No Respiratory Distress, Decreased Breath Sounds Cardiovascular: Tachycardia Gastrointestinal: Normal Bowel Sounds, Soft, Other (morbidly obese abdomen) Neurologic/Psychiatric: Other (intubated) Skin: Cool, Pallor Results/Procedures Lab Laboratory Tests 02/09/19 03:30 Patient resulted labs reviewed. Assessment/Plan Assessment and Plan Assess & Plan/Chief Complaint Assessment: (1A) VDRF- now extubated (1) Severe sepsis (2) UTI (urinary tract infection) (3) Acute renal failure (4) Acute respiratory failure (5) Insulin dependent diabetes mellitus with complications (6) Acute hepatitis (7) HTN (hypertension) (8) HLD (hyperlipidemia) (9) Obesity hypoventilation syndrome (10) Morbid obesity with BMI of 50.0-59.9, adult (11) DVT prophylaxis Plan: Intubation weaning successful Appreciate Dr Mota Diagnosis/Problems Diagnosis/Problems (1) Severe sepsis Status: Acute (2) Acute respiratory failure Status: Acute Qualifiers: Respiratory failure complication: hypercapnia Qualified Codes: J96.02 - Acute respiratory failure with hypercapnia (3) Acute renal failure Status: Acute Qualifiers: Acute renal failure type: unspecified Qualified Codes: N17.9 - Acute kidney failure, unspecified (4) Obesity hypoventilation syndrome Status: Chronic (5) Morbid obesity with BMI of 50.0-59.9, adult Status: Chronic Clinical Quality Measures DVT/VTE Risk/Contraindication: Risk Factor Score Per Nursin RFS Level Per Nursing on Admit: 4+=Very High YADIRA DORMAN DO Feb 09, 2019 10:25
[2019-02-09] MEDS ORDERED: TROUGH ORDER-PHARMACY XX NR (10:30)
--- NOTE | 2019-02-09 10:34 | Occupational Therapy Eval ---
OT Evaluation-General/PLF Medical Diagnosis Admission Date Feb 06, 2019 at 06:27 Medical Diagnosis: sepsis, respiratory failure Onset Date: Feb 06, 2019 Therapy Diagnosis Therapy Diagnosis: decr self care, decr funct mob, decr act olinda, weakness Height/Weight Height (Feet): 5 Height (Inches): 8.00 Weight (Pounds): 369 Weight (Ounces): 3.0 Precautions Precautions/Isolations: Fall Prevention, Standard Precautions Safety Interventions: None Referral Physician: Svetlana Referral Reason: Evaluation/Treatment Medical History Pertinent Medical History: Arthritis, DM, HTN, Neuropathy Additional Medical History Sleep apnea, chronic constipation, hemorrhoids. Obesity. Family reported pinched nerve in neck. Current History Admitted with elevated blood sugar, unresponsive. Has sepsis, pneumonia. Renal insufficiency. Extubated 02-09-19 but still somewhat sedated. Reviewed History: Yes Social History Home: Single Level Current Living Status: Spouse Entry Into Home: Stairs With Railing Steps Into Home: 1 ADL-Prior Level of Function Therapy Code Descriptions/Definitions Functional [place] Measure: 0=Not Assessed/NA 4=Minimal Assistance 1=Total Assistance 5=Supervision or Setup 2=Maximal Assistance 6=Modified [place] 3=Moderate Assistance 7=Complete [place] Therapy Quality Codes: 6 Independent with activity with or without an assistive device 5 Patient requires set up or clean up by helper. Patient completes activity by themselves 4 Supervision or touching assist (CGA). [place] provide cues , steadying assist 3 The helper provides less than half the effort to complete the activity 2 The helper provides more than half the effort to complete the activity 1 Dependent. The helper does all the effort to complete an activity 7 Patient refused to complete or attempt activity 9 The patient did not perform the activity before the current illness or in jury 88 Not attempted due to Medical conditions or safety concerns Functional Abilities and Goals: Independent: Patient completed the activities by him/herself, with or without an assistive device, with no assistance from a helper. Needed Some Help: Patient needed partial assistance from another person to complete activities. Dependent: A helper completed the activities for the patient. Unknown: Not Applicable: ADL PLOF Comments Pt reported that she was able to manage her basic ADLs with occasional help with dressing. She said her helped with laundry but said she did the rest of home care. She still drives and is disabled. Used rolling walker at home. Needed help to get out of recliner at home. Self Care: Needed Some Help Functional Cognition: Unknown DME/Equipment Comments Unknown DME OT Current Status Subjective Pt seen in room, in bed, extubated this morning. Some difficulty keeping eyes open. No pain mentioned. Appearance Groggy but attempts to participate Mental Status/Objective Patient Orientation: Person, Confused Attachments: Booker Catheter, IV, Oxygen, SCD's Current Hand Dominance: Right Upper Extremity ROM Grossly WFL but limited to approx 90 degrees shoulder flex/abd. Upper Extremity Strength Grossly 3+/5 bilat UE strength. Edema: Edema in bilat UEs ADL-Treatment ADL-Current Per PT eval, pt was dependant to transfer from supine to sit and sat EOB with max assist. Has not eaten or completed any ADLs due to drowsiness. Therapy Code Descriptions/Definitions Functional [place] Measure: 0=Not Assessed/NA 4=Minimal Assistance 1=Total Assistance 5=Supervision or Setup 2=Maximal Assistance 6=Modified [place] 3=Moderate Assistance 7=Complete [place] Therapy Quality Codes: 6 Independent with activity with or without an assistive device 5 Patient requires set up or clean up by helper. Patient completes activity by themselves 4 Supervision or touching assist (CGA). [place] provide cues , steadying assist 3 The helper provides less than half the effort to complete the activity 2 The helper provides more than half the effort to complete the activity 1 Dependent. The helper does all the effort to complete an activity 7 Patient refused to complete or attempt activity 9 The patient did not perform the activity before the current illness or injury 88 Not attempted due to Medical conditions or safety concerns Education OT Patient Education: Purpose of tx/functional activities, Rehab process Teaching Recipient: Patient, Family Teaching Methods: Discussion Response to Teaching: Verbalize Understanding OT Fdc Goals Refuse And Recycling Worker Goals Time Frame: Feb 18, 2019 Eating (FIM): 5 Grooming(FIM): 5 Bathing(FIM): 4 Upper Body Dressing(FIM): 5 Lower Body Dressing(FIM): 5 Toileting(FIM): 5 Toilet/Commode Transfer(FIM): 5 Shower Transfer(FIM): 5 Additional Goals: 1-Demonstrate ADL Tasks, 2-Verbalize Understanding 1=Demonstrate adherence to instructed precautions during ADL tasks. 2=Patient will verbalize/demonstrate understanding of assistive devices/modifications for ADL. 3=Patient will improve strength/tolerance for activity to enable patient to perform ADL's. OT Education/Plan Problem List/Assessment Assessment: Decreased Activ Tolerance, Decreased UE Strength, Dependent Transfers, Impaired Self-Care Skills Pt would benefit from skilled OT to increase her independence in basic self care to allow her to safely return home Discharge Recommendations Plan/Recommendations: Continue POC Treatment Plan/Plan of Care Treatment,Training & Education: Yes Patient would benefit from OT for education, treatment and training to promote independence in ADL's, mobility, safety and/or upper extremity function for ADL's. Plan of Care: ADL Retraining, Caregiver Training, Functional Mobility, UE Funct Exercise/Act, UE Neuromus Re-Ed/Coord, OTHER (energyconservation education) Treatment Duration: Feb 19, 2019 Frequency: 5 times per week Estimated Hrs Per Day: .25 hour per day Agreement: Yes Rehab Potential: Fair Time/GCodes Start Time: 10:15 Stop Time: 10:25 Total Time Billed (hr/min): 10 Billed Treatment Time visit, 10 minutes evaluation moderate intensity IDALMIS GEORGE OT Feb 09, 2019 10:34
--- NOTE | 2019-02-09 11:11 | NUR ---
IRF Evaluation Order received to evaluate patient for the ARU. It appears the patient remains on the ventilator; however, weaning has been initiated. Will continue to follow for medical stability and evaluation. Thank you for this referral.
[2019-02-09] MEDS: cefTRIAXone FOR IV USE 1,000 MG in WATER (STERILE) FOR INJECTION 10 ML IV SCH (11:19)
[2019-02-09] MEDS: VANCOMYCIN INJECTION 1,500 MG in NS IV 500 ML 500 ML IV SCH ×2 (12:50→22:40)
[2019-02-10] VITALS (30 sets, daily range): BP systolic 60–161; BP diastolic 14–80
[2019-02-10 03:30] LABS: ABG BASE EXCESS -2.9 MMOL/L (-2.5-2.5); ABG OXYGEN SATURATION 99 % (94-100); ABG PCO2 34 MMHG (35-45); ABG PH 7.41 (7.37-7.43); ABG PO2 137 MMHG (79-93); ABG TCO2 22.1 MMOL/L (21.0-31.0)
[2019-02-10 03:34] LABS: ALLENS TEST ART LINE; INSPIRED O2 35% BIPAP; PATIENT TEMP 98.6; VENTILATOR NO
[2019-02-10 03:42] LABS: BASOPHILS % (AUTO) 0 % (0-10); EOSINOPHILS # (AUTO) 0.1 10^3/uL (0.0-0.3); EOSINOPHILS % (AUTO) 1 % (0-10); HEMATOCRIT 28 % (35-52); HEMOGLOBIN 8.9 G/DL (11.5-16.0); LYMPHOCYTES # (AUTO) 1.5 X 10^3 (1.0-4.0); LYMPHOCYTES % (AUTO) 7 % (12-44); MEAN CORPUSCULAR HEMOGLOBIN 27 PG (25-34); MEAN CORPUSCULAR HGB CONC 32 G/DL (32-36); MEAN CORPUSCULAR VOLUME 85 FL (80-99); MEAN PLATELET VOLUME 12.8 FL (7.4-10.4); MONOCYTES # (AUTO) 1.3 X 10^3 (0.0-1.0); MONOCYTES % (AUTO) 6 % (0-12); NEUTROPHILS # (AUTO) 17.7 X 10^3 (1.8-7.8); NEUTROPHILS % (AUTO) 86 % (42-75); PLATELET COUNT 155 10^3/uL (130-400); RED CELL DISTRIBUTION WIDTH 15.8 % (10.0-14.5); WHITE BLOOD COUNT 20.5 10^3/uL (4.3-11.0)
[2019-02-10 04:01] LABS: ANISOCYTOSIS SLIGHT; BAND NEUTROPHILS 2 %; BASOPHILS % (MANUAL) 0 %; EOSINOPHILS % (MANUAL) 0 %; LYMPHOCYTES % (MANUAL) 7 %; MONOCYTES % (MANUAL) 5 %; NEUTROPHILS % (MANUAL) 84 %; REACTIVE LYMPHOCYTES 2 %
[2019-02-10 04:02] LABS: TOXIC GRANULATION/VACUOLAZATIO 1+
[2019-02-10 04:09] LABS: BUN/CREATININE RATIO 28; CARBON DIOXIDE 19 MMOL/L (21-32); CHLORIDE 109 MMOL/L (98-107); CREATININE SERUM 0.75 MG/DL (0.60-1.30); GFR ESTIMATED > 60; GLUCOSE 285 MG/DL (70-105); MAGNESIUM 1.7 MG/DL (1.8-2.4); PHOSPHORUS 2.3 MG/DL (2.3-4.7); POTASSIUM 4.3 MMOL/L (3.6-5.0); SODIUM 137 MMOL/L (135-145)
[2019-02-10] MEDS: morphine INJ 10 MG/ML 1ML (SYR OR VIAL) IVP PRN ×4 (04:28→21:07)
[2019-02-10] MEDS: POTASSIUM CL 10MEQ/50ML IVPB 50 ML IV SCH (05:22)
[2019-02-10] MEDS: KCL 20 MEQ TAB (K-DUR) PO SCH (05:22)
[2019-02-10] MEDS: MAGNESIUM 1 GM/100 ML IVPB 100 ML IV SCH ×2 (05:22→05:31)
[2019-02-10] MEDS: inSUlin ASPART (NovoLOG) 1 UNIT/0.01 ML (CHARGE PER UNIT) SC SCH ×3 (05:30→18:49)
--- NOTE | 2019-02-10 07:55 | Diagnostic Imaging Report ---
INDICATION: Sepsis and pneumonia. Comparison made with prior examination 02/09/2019. FINDINGS: There is cardiomegaly. There is venous congestion. There is left base infiltrate. There is no pleural effusion or pneumothorax. Mediastinum is unremarkable. IMPRESSION: Left base infiltrate. Cardiomegaly and some central pulmonary venous congestion. Dictated by: Dictated on workstation # [id number]
--- NOTE | 2019-02-10 09:01 | Progress Note-Cardiology ---
Cardiology SOAP Progress Note Subjective: Multiple family at the bedside Objective: I&O/Vital Signs 02/09/19 02/09/19 02/09/19 02/09/19 22:00 22:45 22:45 23:00 Pulse 101 101 107 100 Resp 33 26 33 31 B/P (MAP) 140/46 (77) 124/43 (70) 130/45 (73) Pulse Ox 100 100 100 100 O2 Delivery NIV Bilevel NIV Bilevel NIV Bilevel O2 Flow Rate 40.00 35.00 40.00 35.00 02/09/19 02/10/19 02/10/19 02/10/19 23:08 00:00 00:01 01:00 Temp 97.9 Pulse 101 103 Resp 33 B/P (MAP) 129/42 (71) Pulse Ox 100 O2 Delivery NIV Bilevel NIV Bilevel O2 Flow Rate 35.00 FiO2 35 02/10/19 02/10/19 02/10/19 02/10/19 01:00 02:00 03:06 03:30 Pulse 103 103 103 103 Resp 30 B/P (MAP) 130/44 (72) 89/44 (59) 115/44 (67) Pulse Ox 100 100 100 100 O2 Delivery NIV Bilevel NIV Bilevel NIV Bilevel O2 Flow Rate 35.00 35.00 35.00 35.00 02/10/19 02/10/19 02/10/19 02/10/19 03:30 03:32 03:34 04:00 Temp 98.6 Pulse 103 104 104 B/P (MAP) 101/47 (65) 115/45 (68) 133/44 (73) Pulse Ox 100 100 100 O2 Delivery NIV Bilevel NIV Bilevel NIV Bilevel O2 Flow Rate 35.00 30.00 30.00 02/10/19 02/10/19 02/10/19 02/10/19 04:00 05:00 06:00 06:45 Pulse 104 103 103 Resp 27 B/P (MAP) 139/42 (74) 138/44 (75) Pulse Ox 99 100 100 O2 Delivery NIV Bilevel NIV Bilevel NIV Bilevel O2 Flow Rate 30.00 30.00 30.00 FiO2 30 02/10/19 02/10/19 02/10/19 02/10/19 07:00 07:00 07:42 07:43 Temp 98.0 Pulse 104 104 B/P (MAP) 120/47 (71) Pulse Ox 99 O2 Delivery NIV Bilevel NIV Bilevel O2 Flow Rate 30.00 FiO2 30 02/10/19 02/10/19 08:00 09:00 Pulse 102 102 Resp 14 14 B/P (MAP) 140/43 (75) 104/14 (44) Pulse Ox 100 100 O2 Delivery NIV Bilevel Nasal Cannula O2 Flow Rate 30.00 2.00 02/10/19 00:00 Intake Total 840 ml Output Total 1400 ml Balance -560 ml Weight (Pounds): 365 Weight (Ounces): 9.0 Weight (Calculated Kilograms): 165.001634 Constitutional: well-developed, well-nourished Respiratory: No accessory muscle use; rhonchi (scattered), other (fair bilat air entry, diminished at the bases) Cardiovascular: regular rate-rhythm, S1 and S2, systolic murmur (soft YULIA at card base) Gastrointestional: No tender; soft; No guarding, No rebound; audible bowel sounds Extremities: No clubbing, No cyanosis; significant edema (bilat upper and lower extremity swelling, 2-3 (+)) Neurologic/Psychiatric: other (moves extremities) Skin: normal color, warm/dry; No rash on exposed areas, No ulcerations on exposed areas Results/Procedures: Labs Laboratory Tests 02/09/19 10:20: Glucometer 225H 02/09/19 10:24: Vancomycin Level Trough 19.7 02/09/19 18:14: Glucometer 306H 02/09/19 23:05: Glucometer 315H 02/10/19 03:20: White Blood Count 20.5H, Red Blood Count 3.25L, Hemoglobin 8.9L, Hematocrit 28L, Mean Corpuscular Volume 85, Mean Corpuscular Hemoglobin 27, Mean Corpuscular Hemoglobin Concent 32, Red Cell Distribution Width 15.8H, Platelet Count 155, Mean Platelet Volume 12.8H, Neutrophils (%) (Auto) 86H, Lymphocytes (%) (Auto) 7L, Monocytes (%) (Auto) 6, Eosinophils (%) (Auto) 1, Basophils (%) (Auto) 0, Neutrophils # (Auto) 17.7H, Lymphocytes # (Auto) 1.5, Monocytes # (Auto) 1.3H, Eosinophils # (Auto) 0.1, Basophils # (Auto) 0.0, Neutrophils % (Manual) 84, Lymphocytes % (Manual) 7, Monocytes % (Manual) 5, Eosinophils % (Manual) 0, Basophils % (Manual) 0, Band Neutrophils 2, Reactive Lymphocytes 2, Toxic Granulation 1+, Anisocytosis SLIGHT, Blood Gas Puncture Site R JIMENA, Blood Gas Patient Temperature 98.6, Arterial Blood pH 7.41, Arterial Blood Partial Pressure CO2 34L, Arterial Blood Partial Pressure O2 137H, Arterial Blood HCO3 21L, Arterial Blood Total CO2 22.1, Arterial Blood Oxygen Saturation 99, Arterial Blood Base Excess -2.9L, Apolinar Test ART LINE, Blood Gas Ventilator Setting NO, Blood Gas Inspired Oxygen 35% BIPAP, Sodium Level 137, Potassium Level 4.3, Chloride Level 109H, Carbon Dioxide Level 19L, Anion Gap 9, Blood Urea Nitrogen 21H, Creatinine 0.75, Estimat Glomerular Filtration Rate > 60, BUN/Creatinine Ratio 28, Glucose Level 285H, Calcium Level 8.0L, Phosphorus Level 2.3, Magnesium Level 1.7L Microbiology 02/08/19 Blood Culture - Preliminary, Resulted Staphylococcus aureus 02/06/19 Gram Stain - Final, Resulted 02/06/19 Sputum Culture - Preliminary, Resulted Staphylococcus aureus 02/08/19 Urine Culture - Final, Complete NO GROWTH A/P: Assessment: Ac resp failure, multifactorial: sepsis, obesity-hypoventilation - extubated 02-09-19 Staph aureus bacteremia E Coli UTI - management per medical services Renal insufficiency, probably acute, probably due to intravascular volume depletion Hyponatremia: probably partly pseudohyponatremia due to hyperglycemia, and partly due to chronic diuretic use H/o leg swelling, likely due to venous insufficiency, chronically treated with diuretics MPI of March 2017: no ischemia or infarction, LVEF 78% Echo of February 2019: LVEF 65-70%; Grade 2 diastolic dysfunc; Mod calcified mitral valve; aortic sclerosis; PASP 35-40 mmHg Hypertension, by history Hyperlipidemia, by history Obesity with obesity-hypoventilation and [place] DM II Plan: * Complex management due to multiple comorbidities * HTN and tachycardia - add BB and adjust as indicated * Treat with diuretics as indicated * Mild anemia/thrombocytopenia - monitor lab closely * Replace electrolytes ADELAIDE MAYORGA Feb 10, 2019 09:01
[2019-02-10] MEDS: PANTOPRAZOLE 40 MG (PROTONIX) VIAL IV SCH (09:28)
[2019-02-10] MEDS ORDERED: GABAPENTIN 300 MG (NEURONTIN) CAP ONE (09:36)
[2019-02-10] MEDS: GABAPENTIN 300 MG (NEURONTIN) CAP PO SCH ×2 (09:41→12:14)
--- NOTE | 2019-02-10 10:36 | Progress Note-Hospitalist ---
Subjective HPI/CC On Admission Date Seen by Provider: Feb 10, 2019 Time Seen by Provider: 09:00 Subjective/Events-last exam Patient stable Eating a bit more Respiratory status about the same s/p extubation Checked meds and labs No pain is reported. Review of Systems General: Fatigue Pulmonary: Dyspnea Focused Exam Lactate Level 02/08/19 05:43: Lactic Acid Level 1.54 Time of Focused Exam: 05:40 Objective Exam Vital Signs Vital Signs Date Time Temp Pulse Resp B/P (MAP) Pulse Ox O2 Delivery O2 Flow Rate FiO2 02/10/19 16:00 98 37 125/47 (73) 100 Nasal Cannula 2.00 02/10/19 15:30 98.6 02/10/19 12:00 30 Capillary Refill : Less Than 3 Seconds General Appearance: No Apparent Distress, WD/WN, Chronically ill, Obese, Other (intubated) HEENT: No Moist Mucous Membranes (dry mucous membranes with remnants of red candy on her tongue and mouth) Neck: Supple Respiratory: Chest Non Tender, No Accessory Muscle Use, No Respiratory Distress , Decreased Breath Sounds Cardiovascular: Tachycardia Gastrointestinal: Normal Bowel Sounds, Soft, Other (morbidly obese abdomen) Neurologic/Psychiatric: Other (intubated) Skin: Cool, Pallor Results/Procedures Lab Laboratory Tests 02/10/19 03:20 Patient resulted labs reviewed. Assessment/Plan Assessment and Plan Assess & Plan/Chief Complaint Assessment: (1A) VDRF- now extubated (1) Severe sepsis (2) UTI (urinary tract infection) (3) Acute renal failure (4) Acute respiratory failure (5) Insulin dependent diabetes mellitus with complications (6) Acute hepatitis (7) HTN (hypertension) (8) HLD (hyperlipidemia) (9) Obesity hypoventilation syndrome (10) Morbid obesity with BMI of 50.0-59.9, adult (11) DVT prophylaxis Plan: Intubation weaning successful Appreciate Dr Mota IRF possibly? Diagnosis/Problems Diagnosis/Problems (1) Severe sepsis Status: Acute (2) Acute respiratory failure Status: Acute Qualifiers: Respiratory failure complication: hypercapnia Qualified Codes: J96.02 - Acute respiratory failure with hypercapnia (3) Acute renal failure Status: Acute Qualifiers: Acute renal failure type: unspecified Qualified Codes: N17.9 - Acute kidney failure, unspecified (4) Obesity hypoventilation syndrome Status: Chronic (5) Morbid obesity with BMI of 50.0-59.9, adult Status: Chronic Clinical Quality Measures DVT/VTE Risk/Contraindication: Risk Factor Score Per Nursin RFS Level Per Nursing on Admit: 4+=Very High YADIRA DORMAN DO Feb 10, 2019 10:36
[2019-02-10] MEDS: cefTRIAXone FOR IV USE 1,000 MG in WATER (STERILE) FOR INJECTION 10 ML IV SCH (10:54)
--- NOTE | 2019-02-10 11:06 | Physical Therapy Progress Note ---
Therapy Progress Note No treatment this a.m. per RN due to, "Patient had a rough morning." PT will attempt in p.m. LISE GAUTHIER PT Feb 10, 2019 11:06
[2019-02-10] MEDS: APAP 325 MG/10.15 ML LIQ (TYLENOL) UDC PO PRN ×2 (11:29→17:38)
--- NOTE | 2019-02-10 11:42 | Physical Therapy Daily Note ---
PT Daily Note-Current Subjective Patient is on BiPap and agrees to repositioning only. Patient continues to have uncontrolled total body pain and family reports frustration with patient being bothered by staff. Transfers Therapy Code Descriptions/Definitions Functional [place] Measure: 0=Not Assessed/NA 4=Minimal Assistance 1=Total Assistance 5=Supervision or Setup 2=Maximal Assistance 6=Modified [place] 3=Moderate Assistance 7=Complete [place] Therapy Quality Codes: 6 Independent with activity with or without an assistive device 5 Patient requires set up or clean up by helper. Patient completes activity by themselves 4 Supervision or touching assist (CGA). [place] provide cues , steadying ass ist 3 The helper provides less than half the effort to complete the activity 2 The helper provides more than half the effort to complete the activity 1 Dependent. The helper does all the effort to complete an activity 7 Patient refused to complete or attempt activity 9 The patient did not perform the activity before the current illness or injury 88 Not attempted due to Medical conditions or safety concerns Transfers (B, C, W/C) (FIM): 1 Scootin Patient repositioned up in bed and pillows placed under bilateral LE to free heel pressure. Patient yelled in pain with minimal activity. Assessment Patient not tolerating therapy on this date and family request PT not return until a.m. to allow patient to rest. RN notified. PT Short Term Goals Short Term Goals Time Frame: Feb 16, 2019 Gait (FIM): 1 Gait Distance Comment: 5' Gait Level of Assist: 3 Gait Assistive Device: FWW PT Plan Treatment/Plan Treatment Plan: Continue Plan of Care Treatment Plan: Bed Mobility, Concurrent Therapy, Education, Functional Activity [place], Functional Strength, Gait, Safety, Therapeutic Exercise, Transfers Treatment Duration: Feb 16, 2019 Frequency: 6 times per week Estimated Hrs Per Day: .25 hour per day (15-30') Patient and/or Family Agrees t: Yes Time/GCodes Time In: 1120 Time Out: 1128 Total Billed Treatment Time: 8 Total Billed Treatment 1 visit FA 8 min LISE GAUTHIER PT Feb 10, 2019 11:42
[2019-02-10] MEDS ORDERED: GABAPENTIN 300 MG (NEURONTIN) CAP PO SCH ×2 (12:00→21:00)
[2019-02-10] MEDS: VANCOMYCIN INJECTION 1,500 MG in NS IV 500 ML 500 ML IV SCH ×2 (12:14→23:08)
--- NOTE | 2019-02-10 14:56 | Occupational Ther Daily Note ---
OT Current Status-Daily Note Subjective Pt alert, lying in bed. Family present in room. Pt agrees to therapy. Family c/o pt's pinched nerve in neck when SWANSON began to work on UE AROM. Mental Status/Objective Patient Orientation: Person, Place, Time, Situation Therapy Code Descriptions/Definitions Functional [place] Measure: 0=Not Assessed/NA 4=Minimal Assistance 1=Total Assistance 5=Supervision or Setup 2=Maximal Assistance 6=Modified [place] 3=Moderate Assistance 7=Complete [place] Other Treatment Worked with pt on neck stretches to assist with pain in neck with arm or neck m ovement, R side. Pt unable to complete tilt of head toward L shldr, could turn head to the left to give gentle stretch to area (5x's). 10 reps of AAROM B shldr flexion. Pt demonstrated fair AROM of L shldr, poor AROM of R shldr. With AAROM pt able to complete 90* shldr flexion. Increased SOA noted with movement and pt c/o fatigue with exercise. After therapy, pt lying in bed with call light/phone in reach. All needs met in room. Education OT Patient Education: Exercise program Teaching Recipient: Patient, Family Teaching Methods: Demonstration, Discussion Response to Teaching: Verbalize Understanding, Reinforcement Needed OT Short Term Goals Short Term Goals 1=Demonstrate adherence to instructed precautions during ADL tasks. 2=Patient will verbalize/demonstrate understanding of assistive devices/modifications for ADL. 3=Patient will improve strength/tolerance for activity to enable patient to perform ADL's. OT Intermediate Goals Intermediate Goals Time Frame: Feb 18, 2019 Eating (FIM): 5 Grooming(FIM): 5 Bathing(FIM): 4 Upper Body Dressing(FIM): 5 Lower Body Dressing(FIM): 5 Toileting(FIM): 5 Toilet/Commode Transfer(FIM): 5 Shower Transfer(FIM): 5 Additional Goals: 1-Demonstrate ADL Tasks, 2-Verbalize Understanding 1=Demonstrate adherence to instructed precautions during ADL tasks. 2=Patient will verbalize/demonstrate understanding of assistive devices/modifications for ADL. 3=Patient will improve strength/tolerance for activity to enable patient to perform ADL's. OT Education/Plan Problem List/Assessment Assessment: Decreased Activ Tolerance, Decreased UE Strength, Dependent Transfers, Impaired Bed Mobility, Impaired I ADL's, Impaired Self-Care Skills, Restricted Funct UE ROM Pt would benefit from skilled OT to increase her independence in basic self care to allow her to safely return home Discharge Recommendations Plan/Recommendations: Continue POC Treatment Plan/Plan of Care Patient would benefit from OT for education, treatment and training to promote independence in ADL's, mobility, safety and/or upper extremity function for ADL's. Plan of Care: ADL Retraining, Caregiver Training, Functional Mobility, UE Funct Exercise/Act, UE Neuromus Re-Ed/Coord, OTHER (energyconservation education) Treatment Duration: Feb 19, 2019 Frequency: 5 times per week Estimated Hrs Per Day: .25 hour per day Agreement: Yes Rehab Potential: Fair Time/GCodes Start Time: 14:30 Stop Time: 14:45 Total Time Billed (hr/min): 15 Billed Treatment Time 1 visit-EX 1 (15 min) BEVERLY JOHN Feb 10, 2019 14:56
--- NOTE | 2019-02-10 16:04 | Progress Note-Cardiology ---
Cardiology SOAP Progress Note Subjective: More responsive today Family helping her with food at the time of my exam this am at approx 9:30 am No cp or palp Gen malaise and shortness of breath Not able to answer questions in any detail Objective: I&O/Vital Signs 02/10/19 02/10/19 02/10/19 02/10/19 04:00 04:00 05:00 06:00 Pulse 104 104 103 B/P (MAP) 133/44 (73) 139/42 (74) 138/44 (75) Pulse Ox 100 99 100 O2 Delivery NIV Bilevel NIV Bilevel NIV Bilevel NIV Bilevel O2 Flow Rate 30.00 30.00 30.00 FiO2 30 02/10/19 02/10/19 02/10/19 02/10/19 06:45 07:00 07:00 07:42 Pulse 103 104 104 Resp 27 B/P (MAP) 120/47 (71) Pulse Ox 100 99 O2 Delivery NIV Bilevel NIV Bilevel O2 Flow Rate 30.00 30.00 FiO2 30 02/10/19 02/10/19 02/10/19 02/10/19 07:43 08:00 09:00 10:00 Temp 98.0 Pulse 102 102 108 Resp 14 14 36 B/P (MAP) 140/43 (75) 104/44 (64) 158/47 (84) Pulse Ox 100 100 100 O2 Delivery NIV Bilevel Nasal Cannula Nasal Cannula O2 Flow Rate 30.00 2.00 2.00 02/10/19 02/10/19 02/10/19 02/10/19 10:23 11:00 11:30 12:00 Temp 97.9 Pulse 107 101 103 Resp 30 24 17 B/P (MAP) 155/43 (80) 103/56 (72) Pulse Ox 100 100 100 O2 Delivery Nasal Cannula Nasal Cannula O2 Flow Rate 30.00 2.00 2.00 02/10/19 02/10/19 02/10/19 02/10/19 12:00 12:44 13:00 14:00 Pulse 96 98 90 Resp 45 24 B/P (MAP) 125/45 (71) Pulse Ox 100 100 O2 Delivery NIV Bilevel Nasal Cannula Nasal Cannula O2 Flow Rate 2.00 2.00 FiO2 30 02/10/19 02/10/19 02/10/19 14:24 15:00 15:30 Temp 98.6 Pulse 94 93 Resp 26 26 B/P (MAP) 135/38 (70) Pulse Ox 100 100 O2 Delivery Nasal Cannula O2 Flow Rate 30.00 2.00 02/10/19 00:00 Intake Total 840 ml Output Total 1400 ml Balance -560 ml Weight (Pounds): 365 Weight (Ounces): 9.0 Weight (Calculated Kilograms): 165.783069 Constitutional: well-developed, well-nourished Respiratory: No accessory muscle use; rhonchi (scattered), other (fair bilat air entry, diminished at the bases) Cardiovascular: regular rate-rhythm, S1 and S2, systolic murmur (soft YULIA at card base) Gastrointestional: No tender; soft; No guarding, No rebound; audible bowel sounds Extremities: No clubbing, No cyanosis; significant edema (bilat upper and lower extremity swelling, 2-3 (+)) Neurologic/Psychiatric: other (moves extremities) Skin: normal color, warm/dry; No rash on exposed areas, No ulcerations on exposed areas Results/Procedures: Labs Laboratory Tests 02/09/19 18:14: Glucometer 306H 02/09/19 23:05: Glucometer 315H 02/10/19 03:20: White Blood Count 20.5H, Red Blood Count 3.25L, Hemoglobin 8.9L, Hematocrit 28L, Mean Corpuscular Volume 85, Mean Corpuscular Hemoglobin 27, Mean Corpuscular Hemoglobin Concent 32, Red Cell Distribution Width 15.8H, Platelet Count 155, Mean Platelet Volume 12.8H, Neutrophils (%) (Auto) 86H, Lymphocytes (%) (Auto) 7L, Monocytes (%) (Auto) 6, Eosinophils (%) (Auto) 1, Basophils (%) (Auto) 0, Neutrophils # (Auto) 17.7H, Lymphocytes # (Auto) 1.5, Monocytes # (Auto) 1.3H, Eosinophils # (Auto) 0.1, Basophils # (Auto) 0.0, Neutrophils % (Manual) 84, Lymphocytes % (Manual) 7, Monocytes % (Manual) 5, Eosinophils % (Manual) 0, Bas ophils % (Manual) 0, Band Neutrophils 2, Reactive Lymphocytes 2, Toxic Granulation 1+, Anisocytosis SLIGHT, Blood Gas Puncture Site R JIMENA, Blood Gas Patient Temperature 98.6, Arterial Blood pH 7.41, Arterial Blood Partial Pressure CO2 34L, Arterial Blood Partial Pressure O2 137H, Arterial Blood HCO3 21L, Arterial Blood Total CO2 22.1, Arterial Blood Oxygen Saturation 99, Arterial Blood Base Excess -2.9L, Apolinar Test ART LINE, Blood Gas Ventilator Setting NO, Blood Gas Inspired Oxygen 35% BIPAP, Sodium Level 137, Potassium Level 4.3, Chloride Level 109H, Carbon Dioxide Level 19L, Anion Gap 9, Blood Urea Nitrogen 21H, Creatinine 0.75, Estimat Glomerular Filtration Rate > 60, BUN/Creatinine Ratio 28, Glucose Level 285H, Calcium Level 8.0L, Phosphorus Level 2.3, Magnesium Level 1.7L 02/10/19 11:48: Glucometer 379H Microbiology 02/08/19 Blood Culture - Final, Complete Staphylococcus aureus 02/06/19 Gram Stain - Final, Complete 02/06/19 Sputum Culture - Final, Complete Staphylococcus aureus 02/08/19 Urine Culture - Final, Complete NO GROWTH Laboratory Tests 02/09/19 03:30 02/10/19 03:20 A/P: Assessment: Ac resp failure, multifactorial: sepsis, obesity-hypoventilation - extubated Staph aureus bacteremia E Coli UTI - management per medical services Ac renal failure, likely due to volume depletion, improved/resolved Leucocytosis of undetermined etiology, managed by the Med Svce Hyponatremia: probably partly pseudohyponatremia due to hyperglycemia, and part ly due to chronic diuretic use H/o leg swelling, likely due to venous insufficiency, chronically treated with diuretics MPI of March 2017: no ischemia or infarction, LVEF 78% Echo of February 2019: LVEF 65-70%; Grade 2 diastolic dysfunc; Mod calcified mitral valve; aortic sclerosis; PASP 35-40 mmHg Hypertension, by history Hyperlipidemia, by history Obesity with obesity-hypoventilation and HAWA DM II Plan: * Complex management due to multiple comorbidities * Treat with diuretics as indicated * Anemia and leucocytosis management is with the Med Svce * I answered her 's CV-related questions ZULEMA CHAVARRIA MD FACP FAC CCDS Feb 10, 2019 16:04
[2019-02-10] MEDS ORDERED: CHLORASEPTIC LOZENGE MM PRN (18:45)
[2019-02-11] VITALS (20 sets, daily range): BP systolic 71–153; BP diastolic 45–90
[2019-02-11] MEDS: inSUlin ASPART (NovoLOG) 1 UNIT/0.01 ML (CHARGE PER UNIT) SC SCH ×4 (00:22→17:18)
[2019-02-11] MEDS: morphine INJ 10 MG/ML 1ML (SYR OR VIAL) IVP PRN ×4 (00:22→15:26)
[2019-02-11 04:13] LABS: BASOPHILS % (AUTO) 0 % (0-10); EOSINOPHILS # (AUTO) 0.1 10^3/uL (0.0-0.3); EOSINOPHILS % (AUTO) 1 % (0-10); HEMATOCRIT 27 % (35-52); HEMOGLOBIN 8.4 G/DL (11.5-16.0); LYMPHOCYTES # (AUTO) 1.4 X 10^3 (1.0-4.0); LYMPHOCYTES % (AUTO) 8 % (12-44); MEAN CORPUSCULAR HEMOGLOBIN 27 PG (25-34); MEAN CORPUSCULAR HGB CONC 31 G/DL (32-36); MEAN CORPUSCULAR VOLUME 87 FL (80-99); MEAN PLATELET VOLUME 12.7 FL (7.4-10.4); MONOCYTES # (AUTO) 1.1 X 10^3 (0.0-1.0); MONOCYTES % (AUTO) 6 % (0-12); NEUTROPHILS # (AUTO) 14.2 X 10^3 (1.8-7.8); NEUTROPHILS % (AUTO) 85 % (42-75); PLATELET COUNT 160 10^3/uL (130-400); RED CELL DISTRIBUTION WIDTH 15.5 % (10.0-14.5); WHITE BLOOD COUNT 16.8 10^3/uL (4.3-11.0)
[2019-02-11 04:49] LABS: BUN/CREATININE RATIO 19; CALCIUM 7.9 MG/DL (8.5-10.1); CARBON DIOXIDE 22 MMOL/L (21-32); CHLORIDE 107 MMOL/L (98-107); CREATININE SERUM 0.72 MG/DL (0.60-1.30); GFR ESTIMATED > 60; GLUCOSE 326 MG/DL (70-105); MAGNESIUM 1.9 MG/DL (1.8-2.4); PHOSPHORUS 2.1 MG/DL (2.3-4.7); POTASSIUM 4.5 MMOL/L (3.6-5.0); SODIUM 136 MMOL/L (135-145)
[2019-02-11] MEDS: POTASSIUM CL 10MEQ/50ML IVPB 50 ML IV SCH (04:53)
[2019-02-11] MEDS: KCL 20 MEQ TAB (K-DUR) PO SCH (04:54)
[2019-02-11] MEDS: MAGNESIUM 1 GM/100 ML IVPB 100 ML IV SCH (04:54)
--- NOTE | 2019-02-11 07:11 | Diagnostic Imaging Report ---
INDICATION: Followup sepsis. Pneumonia. COMPARISON: 02/10/2019 FINDINGS: Single frontal radiographic view of the chest was obtained and demonstrates persistent moderate cardiomegaly and mild pulmonary vascular congestion. Lungs continue to show patchy and confluent alveolar opacities within the left mid and lower lung field. Overall, aeration is stable compared to prior exam. Small effusions cannot be excluded. There is no pneumothorax on either side. Bony structures show no gross acute abnormalities. IMPRESSION: 1. Stable exam of the chest showing persistent infiltrate appearing opacities within the left base and moderate cardiomegaly. Dictated by: Dictated on workstation # [id number]
--- NOTE | 2019-02-11 08:43 | Progress Note-Cardiology ---
Cardiology SOAP Progress Note Subjective: In bed with Bi-pap in place. Family x 1 at the bedside. No visible signs of distress. Drowsy. Objective: I&O/Vital Signs 02/10/19 02/10/19 02/10/19 02/11/19 22:00 22:06 23:00 00:00 Pulse 80 82 81 Resp 27 21 29 B/P (MAP) 68/59 (62) 60/54 (56) 126/54 (78) 121/70 (87) Pulse Ox 100 100 100 100 O2 Delivery Nasal Cannula Nasal Cannula NIV Bilevel O2 Flow Rate 2.00 30.00 2.00 2.00 FiO2 30 02/11/19 02/11/19 02/11/19 02/11/19 00:00 01:00 01:00 01:57 Temp 98.2 Pulse 82 80 82 83 Resp 34 26 25 B/P (MAP) 71/57 (62) 92/57 (69) 118/65 (82) 119/60 (79) Pulse Ox 100 100 100 O2 Delivery Nasal Cannula Nasal Cannula O2 Flow Rate 2.00 2.00 30.00 02/11/19 02/11/19 02/11/19 02/11/19 02:00 03:00 04:00 04:00 Pulse 83 84 94 Resp 34 19 29 B/P (MAP) 91/60 (70) 107/56 (73) 123/90 (101) 130/45 (73) 135/60 (85) Pulse Ox 100 100 100 100 O2 Delivery Nasal Cannula Nasal Cannula Nasal Cannula NIV Bilevel O2 Flow Rate 2.00 2.00 2.00 2.00 FiO2 30 02/11/19 02/11/19 02/11/19 02/11/19 05:00 06:00 07:00 07:22 Pulse 92 97 96 99 Resp 29 16 37 B/P (MAP) 128/58 (81) 127/64 (85) Pulse Ox 100 97 100 O2 Delivery Nasal Cannula Nasal Cannula O2 Flow Rate 2.00 2.00 30.00 02/11/19 02/11/19 02/11/19 02/11/19 07:26 07:30 08:02 09:02 Temp 96.4 96.4 96.4 Pulse 106 92 91 Resp 26 33 B/P (MAP) 123/78 (93) 133/60 (84) 139/67 (91) Pulse Ox 100 100 100 100 O2 Delivery NIV Bilevel NIV Bilevel NIV Bilevel NIV Bilevel O2 Flow Rate 30.00 30.00 30.00 FiO2 30 02/11/19 00:00 Intake Total 2315 ml Output Total 1550 ml Balance 765 ml Weight (Pounds): 371 Weight (Ounces): 2.0 Weight (Calculated Kilograms): 168.279904 Constitutional: well-developed, well-nourished Respiratory: No accessory muscle use; rhonchi (scattered), other (fair bilat air entry, diminished at the bases) Cardiovascular: regular rate-rhythm, S1 and S2, systolic murmur (soft YULIA at card base) Gastrointestional: No tender; soft; No guarding, No rebound; audible bowel sounds Extremities: No clubbing, No cyanosis; significant edema (bilat upper and lower extremity swelling, 2-3 (+)) Neurologic/Psychiatric: other (appropriately responsive today, but not able to cooperate with a neuro exam, seems to move all limbs equally) Skin: normal color, warm/dry; No rash on exposed areas, No ulcerations on exposed areas Results/Procedures: Labs Laboratory Tests 02/10/19 11:48: Glucometer 379H 02/10/19 18:35: Glucometer 353H 02/10/19 23:54: Glucometer 356H 02/11/19 03:30: White Blood Count 16.8H, Red Blood Count 3.08L, Hemoglobin 8.4L, Hematocrit 27L, Mean Corpuscular Volume 87, Mean Corpuscular Hemoglobin 27, Mean Corpuscular Hemoglobin Concent 31L, Red Cell Distribution Width 15.5H, Platelet Count 160, Mean Platelet Volume 12.7H, Neutrophils (%) (Auto) 85H, Lymphocytes (%) (Auto) 8L, Monocytes (%) (Auto) 6, Eosinophils (%) (Auto) 1, Basophils (%) (Auto) 0, Neutrophils # (Auto) 14.2H, Lymphocytes # (Auto) 1.4, Monocytes # (Auto) 1.1H, Eosinophils # (Auto) 0.1, Basophils # (Auto) 0.0, Sodium Level 136, Potassium Level 4.5, Chloride Level 107, Carbon Dioxide Level 22, Anion Gap 7, Blood Urea Nitrogen 14, Creatinine 0.72, Estimat Glomerular Filtration Rate > 60, BUN/Creatinine Ratio 19, Glucose Level 326H, Calcium Level 7.9L, Phosphorus Level 2.1L, Magnesium Level 1.9 Microbiology 02/08/19 Blood Culture - Final, Complete Staphylococcus aureus 02/06/19 Gram Stain - Final, Complete 02/06/19 Sputum Culture - Final, Complete Staphylococcus aureus 02/08/19 Urine Culture - Final, Complete NO GROWTH Laboratory Tests 02/10/19 03:20 02/11/19 03:30 A/P: Assessment: Ac resp failure, multifactorial: sepsis, obesity-hypoventilation - extubated 02-09-19 Staph aureus bacteremia E Coli UTI - management per medical services Ac renal failure, likely due to volume depletion, improved/resolved Leucocytosis of undetermined etiology, managed by the Med Svce Hyponatremia: probably partly pseudohyponatremia due to hyperglycemia, and partly due to chronic diuretic use H/o leg swelling, likely due to venous insufficiency, chronically treated with diuretics MPI of March 2017: no ischemia or infarction, LVEF 78% Echo of February 2019: LVEF 65-70%; Grade 2 diastolic dysfunc; Mod calcified mitral valve; aortic sclerosis; PASP 35-40 mmHg Hypertension, by history Hyperlipidemia, by history Obesity with obesity-hypoventilation and HAWA DM II Plan: * Complex management due to multiple comorbidities * Treat with diuretics as indicated * Anemia and leucocytosis management is with the Med Svce Physician Assessment Physician Assessment Does not report cp or palp or syncope Gen weakness and malaise Shortness of breath with activity Lungs: decreased bs at bases Cor: reg Ext: mod pitting and nonpitting edema A&R * As documented in our note above that I updated (italics) and as noted below * Continue current regimen * Monitor labs * Dr Sprague covering the Card ADELAIDE Viera [facility] Feb 11, 2019 08:43 ZULEMA CHAVARRIA MD [facility] Feb 11, 2019 09:51
--- NOTE | 2019-02-11 09:33 | Physical Therapy Daily Note ---
PT Daily Note-Current Subjective Patient agrees to PT. Pain Numeric Pain Scale: 7 Location: Soft Tissue Location Body Site: Generalized Pain Description: Chronic Mental Status Patient Orientation: Person, Situation Attachments: Oxygen, Booker Catheter, IV Transfers Therapy Code Descriptions/Definitions Functional [place] Measure: 0=Not Assessed/NA 4=Minimal Assistance 1=Total Assistance 5=Supervision or Setup 2=Maximal Assistance 6=Modified [place] 3=Moderate Assistance 7=Complete [place] Therapy Quality Codes: 6 Independent with activity with or without an assistive device 5 Patient requires set up or clean up by helper. Patient completes activity by themselves 4 Supervision or touching assist (CGA). [place] provide cues , steadying assist 3 The helper provides less than half the effort to complete the activity 2 The helper provides more than half the effort to complete the activity 1 Dependent. The helper does all the effort to complete an activity 7 Patient refused to complete or attempt activity 9 The patient did not perform the activity before the current illness or injury 88 Not attempted due to Medical conditions or safety concerns Transfers (B, C, W/C) (FIM): 1 Scootin Rollin Supine to/from Sit: 1 attempted to perform bed mobility, however, patient unable to sit EOB or attempt to help. PT placed bed in chair position. Exercises Supine Ex: Ankle pumps, Heel Slides Supine Reps: 15 (PROM) Assessment Patient positioned in bed in chair position to increase strength. Justin lift will have to be utilized to have patient OOB in recliner. PT Short Term Goals Short Term Goals Time Frame: Feb 16, 2019 Gait (FIM): 1 Gait Distance Comment: 5' Gait Level of Assist: 3 Gait Assistive Device: FWW PT Plan Treatment/Plan Treatment Plan: Continue Plan of Care Treatment Plan: Bed Mobility, Concurrent Therapy, Education, Functional Activity [place], Functional Strength, Gait, Safety, Therapeutic Exercise, Transfers Treatment Duration: Feb 16, 2019 Frequency: 6 times per week Estimated Hrs Per Day: .25 hour per day (15-30') Patient and/or Family Agrees t: Yes Time/GCodes Time In: 908 Time Out: 922 Total Billed Treatment Time: 14 Total Billed Treatment 1 visit FA 14 min LISE GAUTHIER PT Feb 11, 2019 09:33
[2019-02-11] MEDS: PANTOPRAZOLE 40 MG (PROTONIX) VIAL IV SCH (09:37)
[2019-02-11] MEDS: GABAPENTIN 300 MG (NEURONTIN) CAP PO SCH ×2 (09:37→12:48)
[2019-02-11] MEDS: cefTRIAXone FOR IV USE 1,000 MG in WATER (STERILE) FOR INJECTION 10 ML IV SCH (10:39)
--- NOTE | 2019-02-11 11:37 | Progress Note-Hospitalist ---
Subjective HPI/CC On Admission Date Seen by Provider: Feb 11, 2019 Time Seen by Provider: 10:00 Focused Exam Time of Focused Exam: 05:40 Objective Exam Vital Signs Vital Signs Date Time Temp Pulse Resp B/P (MAP) Pulse Ox O2 Delivery O2 Flow Rate FiO2 02/11/19 17:00 95 20 117/61 (79) 100 NIV Bilevel 30.00 02/11/19 15:29 98.8 02/11/19 07:30 30 Capillary Refill : Less Than 3 Seconds General Appearance: No Apparent Distress, WD/WN, Chronically ill, Obese, Other (intubated) HEENT: No Moist Mucous Membranes (dry mucous membranes with remnants of red candy on her tongue and mouth) Neck: Supple Respiratory: Chest Non Tender, No Accessory Muscle Use, No Respiratory Distress, Decreased Breath Sounds Cardiovascular: Tachycardia Gastrointestinal: Normal Bowel Sounds, Soft, Other (morbidly obese abdomen) Neurologic/Psychiatric: Other (intubated) Skin: Cool, Pallor Results/Procedures Lab Patient resulted labs reviewed. Assessment/Plan Assessment and Plan Assess & Plan/Chief Complaint Assessment: (1A) VDRF- now extubated (1) Severe sepsis (2) UTI (urinary tract infection) (3) Acute renal failure (4) Acute respiratory failure (5) Insulin dependent diabetes mellitus with complications (6) Acute hepatitis (7) HTN (hypertension) (8) HLD (hyperlipidemia) (9) Obesity hypoventilation syndrome (10) Morbid obesity with BMI of 50.0-59.9, adult (11) DVT prophylaxis Plan: Intubation weaning successful Appreciate Dr Mota IRF possibly? Diagnosis/Problems Diagnosis/Problems (1) Severe sepsis Status: Resolved Resolution Date/Time: 02/11/19 @ 16:54 (2) Acute respiratory failure Status: Resolved Qualifiers: Respiratory failure complication: hypercapnia Qualified Codes: J96.02 - Acute respiratory failure with hypercapnia Resolution Date/Time: 02/11/19 @ 16:55 (3) Acute renal failure Status: Resolved Qualifiers: Acute renal failure type: unspecified Qualified Codes: N17.9 - Acute kidney failure, unspecified Resolution Date/Time: 02/11/19 @ 16:55 (4) Obesity hypoventilation syndrome Status: Chronic (5) Morbid obesity with BMI of 50.0-59.9, adult Status: Chronic Clinical Quality Measures DVT/VTE Risk/Contraindication: Risk Factor Score Per Nursin RFS Level Per Nursing on Admit: 4+=Very High YADIRA DORMAN DO Feb 11, 2019 11:37
--- NOTE | 2019-02-11 11:37 | NUR ---
CM/SS referral sent to [facility], they will be out this day to assess patient. Spoke with patient's and his sister, answered their questions in regards to possible transfer and concerns they had with finances. Will continue to follow.
[2019-02-11] MEDS: APAP 325 MG/10.15 ML LIQ (TYLENOL) UDC PO PRN (12:27)
[2019-02-11] MEDS: VANCOMYCIN INJECTION 1,500 MG in NS IV 500 ML 500 ML IV SCH (12:48)
--- NOTE | 2019-02-11 13:32 | Occupational Ther Daily Note ---
OT Current Status-Daily Note Mental Status/Objective Therapy Code Descriptions/Definitions Functional [place] Measure: 0=Not Assessed/NA 4=Minimal Assistance 1=Total Assistance 5=Supervision or Setup 2=Maximal Assistance 6=Modified [place] 3=Moderate Assistance 7=Complete [place] Other Treatment 10 reps of AAROM B shldr flexion. Pt demonstrated fair AROM of L shldr, poor AROM of R shldr. With AAROM pt able to complete 90* shldr flexion. Increased SOA noted with movement and pt c/o fatigue with exercise. Resistive elbow extension, 10 reps BUE. Pain with ROM of B wrist and fingers. Increased edema of L hand and reddened area on forearm, reported to nrsg. After therapy, pt lying in bed with call light/phone in reach. All needs met in room. OT Short Term Goals Short Term Goals 1=Demonstrate adherence to instructed precautions during ADL tasks. 2=Patient will verbalize/demonstrate understanding of assistive devices/modifications for ADL. 3=Patient will improve strength/tolerance for activity to enable patient to perform ADL's. OT Care Home Goals [facility] Chaplain Goals Time Frame: Feb 18, 2019 Eating (FIM): 5 Grooming(FIM): 5 Bathing(FIM): 4 Upper Body Dressing(FIM): 5 Lower Body Dressing(FIM): 5 Toileting(FIM): 5 Toilet/Commode Transfer(FIM): 5 Shower Transfer(FIM): 5 Additional Goals: 1-Demonstrate ADL Tasks, 2-Verbalize Understanding 1=Demonstrate adherence to instructed precautions during ADL tasks. 2=Patient will verbalize/demonstrate understanding of assistive devices/modifications for ADL. 3=Patient will improve strength/tolerance for activity to enable patient to perform ADL's. OT Education/Plan Problem List/Assessment Assessment: Decreased Activ Tolerance, Decreased UE Strength, Dependent Transfers, Edema, Impaired Bed Mobility, Impaired Cognition, Impaired Coordination, Impaired Funct Balance, Impaired I ADL's, Impaired Self-Care Skills, Restricted Funct UE ROM Pt would benefit from skilled OT to increase her independence in basic self care to allow her to safely return home Discharge Recommendations Plan/Recommendations: Continue POC Treatment Plan/Plan of Care Patient would benefit from OT for education, treatment and training to promote independence in ADL's, mobility, safety and/or upper extremity function for ADL's. Plan of Care: ADL Retraining, Caregiver Training, Functional Mobility, UE Funct Exercise/Act, UE Neuromus Re-Ed/Coord, OTHER (energyconservation education) Treatment Duration: Feb 19, 2019 Frequency: 5 times per week Estimated Hrs Per Day: .25 hour per day Agreement: Yes Rehab Potential: Fair Time/GCodes Start Time: 12:55 Stop Time: 13:05 Total Time Billed (hr/min): 10 Billed Treatment Time 1 visit-EX 1 (10 min) BEVERLY JOHN Feb 11, 2019 13:32
--- NOTE | 2019-02-11 16:48 | NUR ---
Attempted to call report to [facility] at this time. RN unavailable.
[2019-02-11] MEDS ORDERED: CEFT1FRO2 IV (16:53)
[2019-02-11] MEDS ORDERED: VANC1.5P19 IV (16:53)
--- NOTE | 2019-02-11 16:59 | Discharge Summary-Hospitalist ---
Diagnosis/Chief Complaint Date of Admission Feb 06, 2019 at 06:27 Date of Discharge Discharge Date: Feb 11, 2019 Discharge Diagnosis (1) Obesity hypoventilation syndrome Status: Chronic (2) Severe sepsis Status: Resolved (3) Acute respiratory failure Status: Resolved (4) Acute renal failure Status: Resolved (5) Morbid obesity with BMI of 50.0-59.9, adult Status: Chronic Discharge Summary Discharge Physical Exam Allergies: Coded Allergies: Sulfa (Sulfonamide Antibiotics) (Unverified Allergy, Unknown, 04/02/17) cefaclor (Unverified Allergy, Unknown, 04/02/17) nitrofurantoin (Verified Allergy, Unknown, HIVES, 02/09/18) Vitals & I&Os Vital Signs Date Time Temp Pulse Resp B/P (MAP) Pulse Ox O2 Delivery O2 Flow Rate FiO2 02/11/19 17:00 95 20 117/61 (79) 100 NIV Bilevel 30.00 02/11/19 15:29 98.8 02/11/19 07:30 30 General Appearance: No Apparent Distress, WD/WN, Chronically ill, Obese, Other (Mild tachypnea) Respiratory: Chest Non Tender, Lungs Clear, Normal Breath Sounds, No Accessory Muscle Use, No Respiratory Distress Cardiovascular: Regular Rate, Rhythm, No Edema, No Gallop, No JVD, No Murmur, Normal Peripheral Pulses Neurologic/Psychiatric: Alert, Oriented x3, No Motor/Sensory Deficits, Normal Mood/Affect Hospital Course Was the Problem List Reviewed?: Yes Hospital course: Patient had a very complex five-day hospital course all of it in the ICU bed 1. She was intubated due to respiratory failure due to obesity hypoventilation syndrome. She was treated for pneumonia maintained on antibiotics of vancomycin and Rocephin and UTI was diagnosed requiring Rocephin to be continued and intratracheal specimen along with blood cultures revealed staph aureus so vancomycin was maintained. Patient was extubated after 3 days of intubation by Dr. Mota's expertise. Patient required [facility] prior to admission to inpatient rehabilitation via [facility] due to continued mild tachypnea and severity of her weakness requiring Justin lift making it impossible for inpatient rehabilitation criteria to be met. Dr. Burciaga graciously agreed for acceptance of transfer of care and she was transferred there on a bariatric stretcher to a bariatric bed to [facility] facility. Labs (last 24 hrs) Laboratory Tests 02/11/19 17:10: Glucometer 277H Microbiology 02/08/19 Blood Culture - Final, Complete Staphylococcus aureus 02/06/19 Gram Stain - Final, Complete 02/06/19 Sputum Culture - Final, Complete Staphylococcus aureus 02/08/19 Urine Culture - Final, Complete NO GROWTH Patient resulted labs reviewed. Pending Labs Discussion & Recommendations Discharge Planning: <30 minutes discharge planning Discharge Home Medications: Active Scripts Active Ceftriaxone 1 gm Piggyback (Ceftriaxone Na/Dextrose,Iso) 1 Gm/50 Ml Froz.piggy 1 Gm IV DAILY 4 Days Vanco 1.5 gm/500 ml-0.9% NaCl (Vancomycin/0.9 % Sod Chloride) 1.5 Gm/500 Ml Plast..bag 1.5 Gm IV Q12H 4 Days Reported Gabapentin 300 Mg Capsule 600 Mg PO HS TAKES 2 (300MG) CAPSULES Estrace Tablet (Estradiol) 0.5 Mg Tablet 0.5 Mg PO DAILY Venlafaxine HCl ER (Venlafaxine HCl) 37.5 Mg Cap.er.24h 37.5 Mg PO BID Novolog (Insulin Aspart) 100 Unit/1 Ml Susp 40 Unit SQ TIDAC Metformin HCl ER (Metformin HCl) 500 Mg Tab.er.24h 500 Mg PO BID Furosemide 40 Mg Tablet 40 Mg PO DAILY Cyclobenzaprine HCl 10 Mg Tablet 10 Mg PO Q8H PRN Hydrocodone-Acetamin 5-325 mg (Hydrocodone/Acetaminophen) 1 Each Tablet 1 Tab PO Q4H PRN Diclofenac-Misoprost 75-0.2 Tb (Diclofenac Sodium/Misoprostol) 1 Each Tab.ir.dr 1 Tab PO BID Gabapentin 300 Mg Capsule 300 Mg PO 0800,1200 Lisinopril 20 Mg Tablet 10 Mg PO DAILY TAKES 1/2 (20MG) TABLET Pravastatin Sodium 40 Mg Tablet 40 Mg PO DAILY Levemir Flextouch (Insulin Detemir) 100 Unit/1 Ml Insuln.pen 73 Unit SQ BID Instructions to patient/family Please see electronic discharge instructions given to patient. Clinical Quality Measures DVT/VTE Risk/Contraindication: Risk Factor Score Per Nursin RFS Level Per Nursing on Admit: 4+=Very High Problem Qualifiers (1) Acute respiratory failure: Respiratory failure complication: hypercapnia Qualified Codes: J96.02 - Acute respiratory failure with hypercapnia (2) Acute renal failure: Acute renal failure type: unspecified Qualified Codes: N17.9 - Acute kidney failure, unspecified YADIRA DORMAN DO Feb 11, 2019 16:59
--- NOTE | 2019-02-11 17:41 | NUR ---
Attempted to call report to [facility] at this time. RN unavailable.
--- NOTE | 2019-02-11 19:17 | NUR ---
EMS at bedside at this time. Pt taken by EMS via stretcher to be transferred to [facility] at this time. VSS prior to transfer. Family at bedside during EMS arrival and will meet pt on arrival to [facility] facility. Personal belongings sent with family at this time.
[2019-02-11] MEDS ORDERED: SENNA W/DOCUSATE (SENOKOT S) TABLET PO SCH (21:00)
== END 2019-02-11 19:19 | DRG 871 ==
LOC: EDUNIT# 04:09 → ER FS 04:10 → ICU 06:27
PROVIDERS: ADMIT Family Medicine; ATTEND Family Medicine
PROC: 02HV33Z Insertion of Infusion Device into Superior Vena Cava, Percutaneous Approach (ICD-10-PCS; principal; 2019-02-06)
PROC: 0BH17EZ Insertion of Endotracheal Airway into Trachea, Via Natural or Artificial Opening (ICD-10-PCS; 2019-02-06)
PROC: 5A1945Z Respiratory Ventilation, 24-96 Consecutive Hours (ICD-10-PCS; 2019-02-06)
DX: A41.01 Sepsis due to Methicillin susceptible Staphylococcus aureus (principal); R65.20 Severe sepsis without septic shock; A41.51 Sepsis due to Escherichia coli [E. coli]; N30.00 Acute cystitis without hematuria; J18.9 Pneumonia, unspecified organism; N17.0 Acute kidney failure with tubular necrosis; J96.02 Acute respiratory failure with hypercapnia; E10.65 Type 1 diabetes mellitus with hyperglycemia; E87.1 Hypo-osmolality and hyponatremia; E87.2 Acidosis; B17.9 Acute viral hepatitis, unspecified; E66.2 Morbid (severe) obesity with alveolar hypoventilation; Z68.43 Body mass index [BMI] 50.0-59.9, adult; E86.0 Dehydration; E83.39 Other disorders of phosphorus metabolism; E10.40 Type 1 diabetes mellitus with diabetic neuropathy, unspecified; G47.30 Sleep apnea, unspecified; E83.42 Hypomagnesemia; I10 Essential (primary) hypertension; G58.9 Mononeuropathy, unspecified; K59.09 Other constipation; K64.9 Unspecified hemorrhoids; M19.91 Primary osteoarthritis, unspecified site; F32.9 Major depressive disorder, single episode, unspecified; E78.5 Hyperlipidemia, unspecified; T50.2X5A Adverse effect of carbonic-anhydrase inhibitors, benzothiadiazides and other diuretics, initial encounter; I87.2 Venous insufficiency (chronic) (peripheral); I34.0 Nonrheumatic mitral (valve) insufficiency; Z79.4 Long term (current) use of insulin; Z88.2 Allergy status to sulfonamides
CPT/HCPCS: 36415; 51702; 71045; 80048; 80053; 80074; 80202; 80306; 80320; 80329; 81000; 82800; 82805; 82962; 83036; 83605; 83735; 83880; 84100; 84478; 85007; 85025; 85027; 87040; 87070; 87077; 87081; 87088; 87186; 87205; 93005; 93041; 93306; 94002; 94003; 94660; 94799; 96361; 96365; 99291